=== PATIENT | female | born 1950 | race Caucasian/White ===

== ENCOUNTER 2017-05-26 06:47 | Day surgery (SDC) | payer MEDICARE, MEDICAID ==
[~2017-05-26 06:47] MED LIST: Acetaminophen TAB* 325 MG PO PRN; Buffered Lidocaine 0.9% SYRIN* 5 ML/SYR SYRINGE INTRADERM ONE
[2017-05-26] MEDS ORDERED: Midazolam* 1 MG/ML 2 ML VIAL (2 MG) ONE (07:45)
[2017-05-26] MEDS ORDERED: fentaNYL* 50 MCG/ML 2 ML VIAL (100 MCG VIAL) ONE (07:50)
[2017-05-26] MEDS ORDERED: Phenylephr/Ketorolac 1%/0.3% OPH DROP BTL ONE (07:51)
[2017-05-26 08:21] VITALS: BP 134/51
--- NOTE | 2017-05-26 10:46 | OP ---
OPERATIVE REPORT: DATE OF OPERATION: 05/26/17 DATE OF : 48 SURGEON: Dr. Yao Longoria. ROAD PASSENGER FIRER: None. ANESTHESIA: Topical with intravenous sedation. PRE-OP DIAGNOSIS: Cataract, right eye. POST-OP DIAGNOSIS: Cataract, right eye. OPERATIVE PROCEDURE: Phacoemulsification and cataract extraction with posterior chamber intraocular lens implant, right eye. COMPLICATIONS: None. BLOOD LOSS: None. DESCRIPTION OF PROCEDURE: The patient was brought to the operating room and received a small amount of intravenous sedation. A drop of Tetracaine was placed in her right eye. She was prepped and dr gildardo in the usual sterile fashion for ophthalmic surgery and attention was directed to the right eye where a speculum was placed. A paracentesis was created at the 11 o'clock position and 0.1 cc of 1 percent preservative-free Lidocaine was injected into the anterior chamber followed by DisCoVisc. The eye was digitally stabilized while a 2.75 mm keratome was used to create a triplanar clear corne al incision at the 9 o'clock position. A continuous curvilinear capsulorrhexis was created with a c ystotome and Utrata forceps. BSS on a cannula was used to hydrodissect the lens from the capsule. P hacoemulsification was performed in a [id number] technique to create four fragments which we re removed. Residual cortical material was removed with irrigation and aspiration. DisCoVisc was u sed to inflate the capsular bag and an AU00T0 27.0 diopter lens was folded and inserted into the cap sular bag. DisCoVisc was removed using irrigation and aspiration. BSS on a cannula was used to hyd rate the corneal stroma and seal the wound. At the end of the case the pupil was round and the lens was centered. The eye was of normal pressure and the wound was water tight. The speculum was minerva chad and topical Maxitrol ointment was placed on the surface of the eye. The eye was closed, patched and shielded and the patient was sent to the recovery room in stable condition with post operative instructions and follow-up appointment given. [id number]/[facility] #: [id number]
[2017-05-26] MEDS ORDERED: Flurbiprofen 0.03% OPTH.SOL* 2.5 ML BTL ONE (11:49)
[2017-05-26] MEDS ORDERED: Cyclopentolate 1% OPTH.SOL* 2 ML BTL ONE (11:49)
[2017-05-26] MEDS ORDERED: Tetracaine 0.5% OPTH.SOL 4 ML* 1 DROP BTL ONE (11:49)
[2017-05-26] MEDS ORDERED: Tropicamide 1% OPTH.SOL* BTL ONE (11:49)
[2017-05-26] MEDS ORDERED: Buffered Lidocaine 0.9% SYRIN* 5 ML/SYR SYRINGE ONE (11:49)
[2017-05-26] MEDS ORDERED: Neomycin/Polymy/Dex OPHTH.OIN* 3.5 GM ONE (11:49)
[2017-05-26] MEDS ORDERED: Lidocaine 1% MPF* 2 ML VIAL ONE (11:49)
[2017-05-26] MEDS ORDERED: Phenylephrine 2.5% OPTH.SOL* 2 ML BTL ONE (11:49)
== END 2017-05-26 08:33 | disposition home or self-care (01) ==
LOC: OREAST 06:47
PROVIDERS: ATTEND Ophthalmology
DX: H25.813 Combined forms of age-related cataract, bilateral (principal); I10 Essential (primary) hypertension; C34.11 Malignant neoplasm of upper lobe, right bronchus or lung; E03.9 Hypothyroidism, unspecified; R30.0 Dysuria; J44.9 Chronic obstructive pulmonary disease, unspecified; F32.9 Major depressive disorder, single episode, unspecified; E78.5 Hyperlipidemia, unspecified; C79.31 Secondary malignant neoplasm of brain; F17.200 Nicotine dependence, unspecified, uncomplicated; Z88.5 Allergy status to narcotic agent; Z79.82 Long term (current) use of aspirin; Z88.0 Allergy status to penicillin
CPT/HCPCS: A9270-GY; C9447; J2250; J3010

== ENCOUNTER 2017-06-02 10:47 | Day surgery (SDC) | payer MEDICARE, MEDICAID ==
[~2017-06-02 10:47] MED LIST changes: +Buffered Lidocaine 0.9% SYRIN* 5 ML/SYR SYRINGE ONE; +Cyclopentolate 1% OPTH.SOL* 2 ML BTL ONE; +Flurbiprofen 0.03% OPTH.SOL* 2.5 ML BTL ONE; +Lidocaine 1% MPF* 2 ML VIAL ONE; +Neomycin/Polymy/Dex OPHTH.OIN* 3.5 GM ONE; +Phenylephr/Ketorolac 1%/0.3% OPH DROP BTL ONE; +Phenylephrine 2.5% OPTH.SOL* 2 ML BTL ONE; +Tetracaine 0.5% OPTH.SOL 4 ML* 1 DROP BTL ONE; +Tropicamide 1% OPTH.SOL* BTL ONE
[2017-06-02] MEDS ORDERED: Midazolam* 1 MG/ML 2 ML VIAL (2 MG) ONE ×2 (11:34→12:09)
[2017-06-02] MEDS ORDERED: fentaNYL* 50 MCG/ML 2 ML VIAL (100 MCG VIAL) ONE (11:34)
[2017-06-02 12:31] VITALS: BP 134/60
--- NOTE | 2017-06-03 02:01 | OP ---
DATE OF OPERATION: 06/02/17 [facility] DATE OF : 48 SURGEON: Dr. Yao Longoria. COMPLETION MANAGER: None. ANESTHESIOLOGIST: Ronan Segovia MD ANESTHESIA: Topical with intravenous sedation. PRE-OP DIAGNOSIS: Cataract, left eye. POST-OP DIAGNOSIS: Cataract, left eye. OPERATIVE PROCEDURE: Phacoemulsification and cataract extraction with posterior chamber intraocular lens implant, left eye. COMPLICATIONS: None. BLOOD LOSS: None. DESCRIPTION OF PROCEDURE: The patient was brought to the operating room and received a small amount of intravenous sedation. A drop of Tetracaine was placed in her left eye. She was prepped and draped in the usual sterile fashion for ophthalmic surgery and attention was directed to the left eye where a speculum was placed. A paracentesis was created at the 5 o'clock position and 0.1 cc of 1 percent preservative-free Lidocaine was injected into the anterior chamber followed by DisCoVisc. The eye was digitally stabilized while a 2.75 mm keratome was used to create a triplanar clear corneal incision at the 3 o'clock position. A continuous curvilinear capsulorrhexis was created with a cystotome and Utrata forceps. BSS on a cannula was used to hydrodissect the lens from the capsule. Phacoemulsification was performed in a divide-and- conquer technique to create four fragments which were removed. Residual cortical material was removed with irrigation and aspiration. DisCoVisc was used to inflate the capsular bag and an AU00T0 26.5 diopter lens was folded and inserted into the capsular bag. DisCoVisc was removed using irrigation and aspiration. BSS on a cannula was used to hydrate the corneal stroma and seal the wound. At the end of the case the pupil was round and the lens was centered. The eye was of normal pressure and the wound was water tight. The speculum was removed and topical Maxitrol ointment was placed on the surface of the eye. The eye was closed, patched and shielded and the patient was sent to the recovery room in stable condition with post operative instructions and follow-up appointment given. [id number]/[facility] #: [id number] MTDD
== END 2017-06-02 12:44 | disposition home or self-care (01) ==
LOC: OREAST 10:47
PROVIDERS: ATTEND Ophthalmology
DX: H25.813 Combined forms of age-related cataract, bilateral (principal); E03.9 Hypothyroidism, unspecified; I25.10 Atherosclerotic heart disease of native coronary artery without angina pectoris; E78.5 Hyperlipidemia, unspecified; I10 Essential (primary) hypertension; F32.9 Major depressive disorder, single episode, unspecified; M81.0 Age-related osteoporosis without current pathological fracture; J44.9 Chronic obstructive pulmonary disease, unspecified; F17.210 Nicotine dependence, cigarettes, uncomplicated; C34.11 Malignant neoplasm of upper lobe, right bronchus or lung; C79.31 Secondary malignant neoplasm of brain; R30.0 Dysuria; I25.2 Old myocardial infarction; Z95.5 Presence of coronary angioplasty implant and graft; Z88.0 Allergy status to penicillin; Z79.82 Long term (current) use of aspirin; Z88.5 Allergy status to narcotic agent
CPT/HCPCS: A9270-GY; C9447; J2250; J3010; V2632

== ENCOUNTER 2017-06-21 20:00 | Emergency (ER) | payer MEDICARE, MEDICAID ==
[2017-06-21] MEDS ORDERED: oxyCODONE/Acetamin 5/325 MG* TAB PO ONE (22:24)
[2017-06-21 23:18] LABS: White Blood Count 0.8 10^3/ul (3.5-10.8)
[2017-06-21 23:22] LABS: Hematocrit 38 % (35-47); Mean Corpuscular HGB Conc 34 g/dl (31-36); Mean Corpuscular Hemoglobin 34 pg (27-31); Mean Corpuscular Volume 99 fL (80-97); Mean Platelet Volume 8 um3 (7.4-10.4); Red Cell Distribution Width 18 % (10.5-15)
[2017-06-21 23:25] LABS: Comments Flag Yes
[2017-06-21 23:29] LABS: Albumin 3.5 g/dL (3.2-5.2); BUN/Creatinine Ratio 40.3 (8-20); Calcium 8.2 mg/dL (8.6-10.3); EGFR African American 123.1 (>60); EGFR Non-African American 95.7 (>60); Globulin 2.5 g/dL (2-4); Magnesium 1.9 mg/dL (1.9-2.7); Potassium 3.9 mmol/L (3.5-5.0); Total Bilirubin 0.8 mg/dL (0.2-1.0)
[2017-06-21 23:31] LABS: Add Diff/Slide Review? Slide Review Added; Troponin I 0.02 ng/mL (<0.04)
[2017-06-22] MEDS ORDERED: Iohexol 350* (CONTRAST) 500 ML MDV IV ONE (00:49)
--- NOTE | 2017-06-22 01:04 | ED ---
HPI Chest Pain - HPI Summary HPI Summary: Pt here w/ atraumatic Rt lower posterior chest pain around noon today. Started shortly before lunch and progressed until now. Worse w/ deep breath, cough and moving. She is sensitive to touch in this area as well. Denies fever, chills, nausea, vomiting however her appetite has been low since onset - did not eat dinner tonight. Denies anterior chest pain, arm pain, bloody cough. She has lung CA and is currently undergoing chemotherapy - no new SOB since. Quit smoking 3 days ago. Has COPD and uses an inhaler daily. No known h/o pneumonia, PE. Reports some Lt arm pain a few days ago -better now. No edema nor orthopnea. - History of Current Complaint Chief Complaint: EDBackInjuryPain Time Seen by Provider: 06/21/17 21:56 Hx Obtained From: Patient Pain Intensity: 9 - Allergy/Home Medications Allergies/Adverse Reactions: Allergies Allergy/AdvReac Type Severity Reaction Status Date / Time Penicillins AdvReac Intermediate Yeast Verified 06/21/17 20:14 infection PMH/Surg Hx/FS Hx/Imm Hx Previously Healthy: Yes Endocrine/Hematology History: Reports: Hx Thyroid Disease Denies: Hx Anticoagulant Therapy, Hx Blood Disorders, Hx Blood Transfusions, Hx Bone Marrow Disease, Hx Diabetes, Hx Systemic Lupus Erythematosus, Hx Sickle Cell Disease, Hx Anemia, Hx Unexplained Bleeding Cardiovascular History: Reports: Hx Aneurysm, Hx Angina, Hx Coronary Artery Disease, Hx Hypercholesterolemia, Hx Hypertension - for tachycardia, Hx Myocardial Infarction, Hx Peripheral Vascular Disease - had stent in right leg 2012 Denies: Hx Angioplasty, Hx Auto Implanted Cardiovert Defib, Hx Cardiac Arrest , Hx Cardiomegaly, Hx Congenital Heart Disease, Hx Congestive Heart Failure, Hx Deep Vein Thrombosis, Hx Pacemaker/ICD, Hx Valvular Heart Disease Comment Only: Other Cardiovascular Problems/Disorders - hx cardiac stents Respiratory History: Reports: Hx Chronic Obstructive Pulmonary Disease (COPD), Other Respiratory Problems/Disorders - COPD, lung cancer 2016 Denies: Hx Asthma GI History: Reports: Hx Diverticulosis, Hx Gastroesophageal Reflux Disease, Hx Obstructive Bowel, Hx Ileostomy, Other GI Disorders - DIVERTICULITIS AND ABDOMINAL HERNIAS Denies: Hx Cirrhosis, Hx Crohn's Disease, Hx Gall Bladder Disease, Hx Hiatal Hernia, Hx Irritable Bowel, Hx Jaundice, Hx Pyloric Stenosis History: Reports: Other Problems/Disorders - UTI RECENTLY - RESOLVED Denies: Hx Acute Renal Failure, Hx Benign Prostatic Hyperplasia, Hx Chronic Renal Failure, Hx Dialysis, Hx Kidney Infection, Hx Kidney Stones, Hx Renal Disease Musculoskeletal History: Reports: Hx Arthritis - IN BACK, Hx Back Problems, Hx Osteoporosis, Other Musculoskeletal History - CORNER OF VERTEBRE BROKEN FROM A FALL Sensory History: Reports: Hx Contacts or Glasses - GLASSES, Hx Glaucoma - HAD LASER SURGERY 2008, Hx Vision Problem - Glasses Denies: Hx Cataracts, Hx Eye Injury, Hx Eye Prosthesis, Hx Macular Degeneration, Hx Deafness, Hx Hearing Aid, Hx Hearing Problem, Other Sensory Impairments Opthamlomology History: Reports: Hx Contacts or Glasses - GLASSES, Hx Glaucoma - HAD LASER SURGERY 2008, Hx Vision Problem - Glasses Denies: Hx Cataracts, Hx Eye Injury, Hx Eye Prosthesis, Hx Macular Degeneration, Other Sensory Impairments Neurological History: Reports: Other Neuro Impairments/Disorders - aneurysm repair brain 2009 Denies: Hx Dementia, Hx Developmental Delay, Hx Headaches, Hx Migraine, Hx Seizures, Hx Spinal Cord Injury, Hx Transient Ischemic Attacks (TIA) Psychiatric History: Reports: Hx Depression, Hx Substance Abuse - synthroid. Denies: Hx Panic Disorder - Cancer History Cancer Type, Location and Year: BRAIN/LUNG Hx Chemotherapy: No Hx Radiation Therapy: No - Surgical History Surgery Procedure, Year, and Place: aneurysm repair brain (info in pacs 03/19 mri safe upto 3.0T) ;. stenting of RLE for claudication Cardiac stent 2011 ( MULTI-LINK VISION COLBAL CHROMIUM BUSTOS - SAFE TO 3T DEBRA UNDER 2.0 W/KG);. colon surgery x 2 with ilieostomy & reversal;. d&c;. angioplasty to femoral;. LASER SURGERY BILAT EYES FOR GLAUCOMA;. 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 Negative: Cough Positive: Nausea - see HPI. Negative: Abdominal Pain, Vomiting, Diarrhea Positive: no symptoms reported Musculoskeletal: Other - see HPI Skin: Negative Negative: Bruising Neurological: Negative Negative: Headache, Weakness, Paresthesia, Numbness Psychological: Normal All Other Systems Reviewed And Are Negative: Yes Physical Exam Triage Information Reviewed: Yes Vital Signs On Initial Exam: Initial Vitals Temp Pulse Resp BP Pulse Ox 98.2 F 96 18 137/105 95 06/21/17 20:15 06/21/17 20:15 06/21/17 20:15 06/21/17 20:15 06/21/17 20:15 Vital Signs Reviewed: Yes Appearance: Positive: Well-Nourished, Ill-Appearing, Pain Distress - mild at rest - worse w/ deep breath/movements Skin: Positive: Warm, Dry - no erythema, no ecchymosis, no lesions over affected area Head/Face: Positive: Other - mild facial edema Eyes: Positive: Normal, EOMI, ANGELA, Conjunctiva Clear ENT: Positive: Hearing grossly normal Respiratory/Lung Sounds: Positive: Clear to Auscultation, Breath Sounds Present. Negative: Rales, Rhonchi, Stridor, Tracheal Deviation, Wheezes Cardiovascular: Positive: RRR, S1, S2 Abdomen Description: Positive: Nontender, No Organomegaly, Soft. Negative: CVA Tenderness (R), CVA Tenderness (L) Bowel Sounds: Positive: Present Musculoskeletal: Positive: Strength/ROM Intact, Pain @ - Rt upper back/mid back and chest areas are TTP Neurological: Positive: Normal, Sensory/Motor Intact, Alert, Oriented to Person Place, Time, CN Intact II-III Psychiatric: Positive: Normal - [place] Coma Scale Coma Scale Total: 15 Diagnostics - Vital Signs Vital Signs Temp Pulse Resp BP Pulse Ox 06/22/17 00:01 92 21 108/57 97 06/22/17 00:00 93 23 97 06/21/17 23:30 95 25 106/65 96 06/21/17 23:00 119/73 06/21/17 22:47 101 21 123/71 94 06/21/17 22:46 25 06/21/17 22:42 18 06/21/17 20:15 98.2 F 96 18 137/105 95 - Laboratory Lab Results: Lab Results 06/21/17 06/21/17 06/21/17 Range/Units 23:00 23:00 23:00 WBC 0.8 L (3.5-10.8) 10^3/ul RBC 3.80 L (4.0-5.4) 10^6/ul Hgb 13.0 (12.0-16.0) g/dl Hct 38 (35-47) % MCV 99 H (80-97) fL MCH 34 H (27-31) pg MCHC 34 (31-36) g/dl RDW 18 H (10.5-15) % Plt Count 24 L D (150-450) 10^3/ul MPV 8 (7.4-10.4) um3 Neut % (Auto) 61.4 (38-83) % Lymph % (Auto) 36.9 (25-47) % [place] % (Auto) 0.7 L (1-9) % Eos % (Auto) 0.8 (0-6) % Baso % (Auto) 0.2 (0-2) % Absolute Neuts (auto) 0.5 L* (1.5-7.7) 10^3/ul Absolute Lymphs (auto) 0.3 L (1.0-4.8) 10^3/ul Absolute Monos (auto) 0 (0-0.8) 10^3/ul Absolute Eos (auto) 0 (0-0.6) 10^3/ul Absolute Basos (auto) 0 (0-0.2) 10^3/ul Absolute Nucleated RBC 0 10^3/ul Nucleated RBC % 0.1 INR (Anticoag Therapy) 0.89 (0.89-1.11) APTT 16.6 L (26.0-36.3) seconds D-Dimer, Quantitative 214 (Less Than 230) ng/mL Sodium 134 (133-145) mmol/L Potassium 3.9 (3.5-5.0) mmol/L Chloride 97 L (101-111) mmol/L Carbon Dioxide 29 (22-32) mmol/L Anion Gap 8 (2-11) mmol/L BUN 25 H (6-24) mg/dL Creatinine 0.62 (0.51-0.95) mg/dL Est GFR ( Amer) 123.1 (>60) Est GFR (Non-Af Amer) 95.7 (>60) BUN/Creatinine Ratio 40.3 H (8-20) Glucose 83 (70-100) mg/dL Lactic Acid (0.5-2.0) mmol/L Calcium 8.2 L (8.6-10.3) mg/dL Magnesium 1.9 (1.9-2.7) mg/dL Total Bilirubin 0.80 (0.2-1.0) mg/dL AST 32 (13-39) U/L ALT 50 (7-52) U/L Alkaline Phosphatase 34 (34-104) U/L Troponin I 0.02 (<0.04) ng/mL Total Protein 6.0 L (6.4-8.9) g/dL Albumin 3.5 (3.2-5.2) g/dL Globulin 2.5 (2-4) g/dL Albumin/Globulin Ratio 1.4 (1-3) 06/21/17 Range/Units 23:00 WBC (3.5-10.8) 10^3/ul RBC (4.0-5.4) 10^6/ul Hgb (12.0-16.0) g/dl Hct (35-47) % MCV (80-97) fL MCH (27-31) pg MCHC (31-36) g/dl RDW (10.5-15) % Plt Count (150-450) 10^3/ul MPV (7.4-10.4) um3 Neut % (Auto) (38-83) % Lymph % (Auto) (25-47) % [place] % (Auto) (1-9) % Eos % (Auto) (0-6) % Baso % (Auto) (0-2) % Absolute Neuts (auto) (1.5-7.7) 10^3/ul Absolute Lymphs (auto) (1.0-4.8) 10^3/ul Absolute Monos (auto) (0-0.8) 10^3/ul Absolute Eos (auto) (0-0.6) 10^3/ul Absolute Basos (auto) (0-0.2) 10^3/ul Absolute Nucleated RBC 10^3/ul Nucleated RBC % INR (Anticoag Therapy) (0.89-1.11) APTT (26.0-36.3) seconds D-Dimer, Quantitative (Less Than 230) ng/mL Sodium (133-145) mmol/L Potassium (3.5-5.0) mmol/L Chloride (101-111) mmol/L Carbon Dioxide (22-32) mmol/L Anion Gap (2-11) mmol/L BUN (6-24) mg/dL Creatinine (0.51-0.95) mg/dL Est GFR ( Amer) (>60) Est GFR (Non-Af Amer) (>60) BUN/Creatinine Ratio (8-20) Glucose (70-100) mg/dL Lactic Acid 1.6 (0.5-2.0) mmol/L Calcium (8.6-10.3) mg/dL Magnesium (1.9-2.7) mg/dL Total Bilirubin (0.2-1.0) mg/dL AST (13-39) U/L ALT (7-52) U/L Alkaline Phosphatase (34-104) U/L Troponin I (<0.04) ng/mL Total Protein (6.4-8.9) g/dL Albumin (3.2-5.2) g/dL Globulin (2-4) g/dL Albumin/Globulin Ratio (1-3) Result Diagrams: 06/21/17 23:00 06/21/17 23:00 Lab Statement: Any lab studies that have been ordered have been reviewed, and results considered in the medical decision making process. Re-Evaluation - Re-Evaluation First Eval Change: Improved - s/p percocet 5/325mg Chest Pain Course/Dx - Course Course Of Treatment: Pt presents with acute onset Rt posterior mid back today around noon. No trigger for onset - worse w/ deep breath, cough and movement. Denies fever, chills, SOB, hemoptysis, edema. Labs appear to be normal for her ( neutropenic, thrombocytic) which are most likely from chemo tx's. D-dimer is WNL and CTA neg for PE, pneumonia, fx. She does have an 18mm spiculated nodule in Rt upper chest of which pt is aware. Pain improved w/ percocet and so advised to continue at home but also to f/u w/ PCP in next couple of days. If danger s/sx present, return to ED. Pt agrees w/ plan. Incidental finding of possible UTI as well. Looked back at most recent cx and sens which appears to be pansensitive. Pt reports poor relief with initial therapy last time and quick improvement with f/u anbx - I chose cipro for her today and advised close f/u w/ PCP to decide a) if she truly has a UTI on cx and b) if so, if organism is sensitive or not to cipro. Discussed w/ Dr. Lynn who agrees w/ plan. - Diagnoses Provider Diagnoses: Right-sided thoracic back pain, UTI (urinary tract infection) Discharge - Discharge Plan Condition: Stable Disposition: HOME Prescriptions: Ciprofloxacin HCl [Cipro 500 MG TAB] 500 mg PO BID #28 tab Patient Education Materials: Urinary Tract Infection in Women (ED), Back Pain ( ED) Referrals: Marguerite Shook MD [Primary Care Provider] - Additional Instructions: The cause of your Rt sided middle/upper back pain was not identified tonight however life threatening issues were ruled out such as pulmonary embolism, heart attack, pneumonia, etc. Incidentally, it was discovered you may have a UTI so you are being placed on an antibiotic. Follow-up with your PCP to see if it is necessary for you to continue this or not. Call tomorrow to schedule an appointment. *If you develop shortness of breath, bloody cough, fever, chills, vomiting, chest pain, dizziness, return to ED.
[2017-06-22] MEDS ORDERED: Ciprofloxacin TAB* 500 MG PO ONE (01:50)
[2017-06-22] MEDS ORDERED: oxyCODONE/Acetamin 5/325 MG* TAB PO ONE (02:08)
[2017-06-22 02:13] VITALS: BP 111/54
--- NOTE | 2017-06-22 07:35 | RAD ---
HISTORY: Lung cancer, right posterior chest pain COMPARISONS: PET CT dated May 14, 2017 VIEWS:1: Single frontal portable view of the chest at 10:45 PM. The patient is slightly obliqued to the right FINDINGS: LINES AND TUBES: None. CARDIOMEDIASTINAL SILHOUETTE: The cardiomediastinal silhouette is normal for portable technique. PLEURA: The costophrenic angles are sharp. No pleural abnormalities are noted. LUNG PARENCHYMA: Again noted is a paramediastinal density on the right corresponding to the nodule noted on the previous examination. ABDOMEN: The upper abdomen is clear. There is no subphrenic gas. BONES AND SOFT TISSUES: No bone or soft tissue abnormalities are noted. IMPRESSION: PERSISTENT RIGHT UPPER LOBE LUNG NODULE. NO ACTIVE CARDIOPULMONARY DISEASE
--- NOTE | 2017-06-22 07:54 | RAD ---
Indication: Posterior chest pain. Contrast: Administered 61.3 ml of OMNIPAQUE 350 mg/ml. CTA of the chest was performed after IV contrast administration. The pulmonary arterial tree is well opacified. There are no filling defects present to suggest pulmonary embolus. There is right hilar lymph nodes measuring up to 10 mm. Small left hilar lymph nodes measure up to 6 mm is noted. The heart demonstrates no pericardial effusion. The lung renner demonstrate right upper lobe spiculated mass measuring 16 mm. Additional mass in the right lower lobe measures 8 mm. No nodules are noted in the left lower lobe. Tiny 1 mm nonspecific nodule is noted in the superior segment of the left lower lobe. Additional small nodule is noted in the superior segment of the right lower lobe measuring approximately 4 mm. No pleural fluid is identified. The mass in the right upper lobe was present on February 17, 2017. Nodules in the right lower lobe are new and are likely due to metastatic lesions. The bony structures are grossly unremarkable. IMPRESSION: No evidence of pulmonary embolus are noted. Again noted is a spiculated pulmonary nodule in the right upper lobe. This remains unchanged since February 17, 2017. There are new nodules in the right lower lobe measuring up to 8 mm although a smaller 4 mm nodule is noted. This is suspicious for metastatic disease.
== END 2017-06-22 02:18 | disposition home or self-care (01) ==
LOC: ED 20:00
DX: M54.6 Pain in thoracic spine (principal); N39.0 Urinary tract infection, site not specified; C79.31 Secondary malignant neoplasm of brain; C34.11 Malignant neoplasm of upper lobe, right bronchus or lung; E07.9 Disorder of thyroid, unspecified; I25.119 Atherosclerotic heart disease of native coronary artery with unspecified angina pectoris; I10 Essential (primary) hypertension; E78.00 Pure hypercholesterolemia, unspecified; I25.2 Old myocardial infarction; I73.9 Peripheral vascular disease, unspecified; J44.9 Chronic obstructive pulmonary disease, unspecified; K21.9 Gastro-esophageal reflux disease without esophagitis; Z95.5 Presence of coronary angioplasty implant and graft; F12.90 Cannabis use, unspecified, uncomplicated; Z88.0 Allergy status to penicillin; Z87.891 Personal history of nicotine dependence
CPT/HCPCS: 36415; 71010; 71275; 80053; 83605; 83735; 84484; 85025; 85379; 85610; 85730; 93005; 99284; A9270-GY; Q9967

== ENCOUNTER 2017-06-23 10:11 | Inpatient (IN) | payer MEDICARE, OTHER ==
--- NOTE | 2017-06-23 11:16 | RAD ---
INDICATION: Chest and rib pain . History of right upper lobe carcinoma. COMPARISON: Chest x-ray 2016; CTA chest June 22, 2017 TECHNIQUE: PA and lateral dual-energy views were obtained. FINDINGS: Bones/Soft Tissues: There are no acute bony findings. There is osteopenia with mild kyphosis Cardiomediastinal: The cardiomediastinal silhouette is normal. Lungs: There is a nodule in the medial right upper lobe. This is been described on earlier CT imaging which is documented additional nodules. There is mild hyperinflation. Pleura: There are no pleural effusions. Other: None IMPRESSION: PERSISTENT RIGHT UPPER LOBE ABNORMALITIES. HYPERINFLATION. NO ACUTE FINDING.
--- NOTE | 2017-06-23 11:18 | RAD ---
Indication: Right rib pain. 3 views of the right ribs are reviewed. There is no fracture or dislocation. Diffuse osteopenia is noted. No definite pneumothorax is noted. IMPRESSION: No definite fracture of the right ribs is noted.
[2017-06-23] MEDS ORDERED: oxyCODONE TAB* 5 MG TAB PO ONE (11:28)
[2017-06-23 11:51] LABS: Hematocrit 32 % (35-47); Hemoglobin 10.6 g/dl (12.0-16.0); Mean Corpuscular HGB Conc 34 g/dl (31-36); Mean Corpuscular Hemoglobin 33 pg (27-31); Mean Corpuscular Volume 98 fL (80-97); Mean Platelet Volume 8 um3 (7.4-10.4); Red Blood Count 3.23 10^6/ul (4.0-5.4); Red Cell Distribution Width 18 % (10.5-15); White Blood Count 0.7 10^3/ul (3.5-10.8)
[2017-06-23 11:56] LABS: Comments Flag Yes
[2017-06-23 11:58] LABS: Add Diff/Slide Review? Manual Diff Added
[2017-06-23 12:00] LABS: BUN/Creatinine Ratio 43.4 (8-20); C Reactive Protein 448.52 mg/L (< 5.00); Calcium 8.5 mg/dL (8.6-10.3); EGFR African American 97.3 (>60); EGFR Non-African American 75.7 (>60); Globulin 2.7 g/dL (2-4); Potassium 3.9 mmol/L (3.5-5.0); Total Bilirubin 0.8 mg/dL (0.2-1.0); Total Protein 5.7 g/dL (6.4-8.9)
[2017-06-23 12:03] LABS: Troponin I 0.03 ng/mL (<0.04)
[2017-06-23 12:38] LABS: Neutrophil % 57 % (38-83)
[2017-06-23 12:39] LABS: Add Path Review? YES; Hypochromasia 1+
[2017-06-23 14:38] LABS: FIO2 4
[2017-06-23 14:46] LABS: PCO2 Arterial 46 mmHg (35-45)
[2017-06-23] MEDS ORDERED: NS 0.9% 1000 ML* 1,000 ML IV SCH (16:00)
[2017-06-23] MEDS: oxyCODONE/Acetamin 5/325 MG* TAB PO PRN ×3 (16:29→23:22)
[2017-06-23] MEDS: Levofloxacin 750 MG IVPREMIX(* 750 MG/150 ML BAG IVPB SCH (16:29)
--- NOTE | 2017-06-23 17:52 | ECHO ---
Patient: VELVET SIMMONS [facility] Rec#: [id number] : 1950 Date: 06/23/2017 Age: 67y Height: 157 cm / 61.8 in Weight: 61.7 kg / 136.0 lbs Sex: F BSA: 1.6 Room#: 403 Admit Date#: 06/23/2017 Type: Inpatient Referring: Allegra Shukla Reading: Eh Choi MD Glass Bender: Ira Tobin RN RDCS CC: Jared Gauthier MD CC: Marguerite Shook Transthoracic Echocardiogram Indication: Shortness of breath, hypoxia BP: 128/58 HR: 84 Rhythm: NSR Findings History: CAD, ID, HTN, HLD, PVD, COPD, former smoker, brain aneurysm with repair, thyroid disease, lung cancer, chemotherapy Technical Comments: The study is technically limited due to poor acoustic windows. The study is technically limited due to the patient's history of COPD. The study is technically limited due to the patient's smoking history. Completed at 1730. Left Ventricle: The left ventricular chamber size is decreased. Global left ventricular wall motion and contractility are within normal limits. The left ventricle appears hyperdynamic. The estimated ejection fraction is greater than 65%. There is no consistent Doppler evidence of clinically significant diastolic dysfunction. Left Atrium: The left atrial chamber size is normal. Right Ventricle: The right ventricle wall thickness is mildly increased. The right ventricular cavity size is normal. The right ventricular global systolic function is normal. Right Atrium: The right atrial cavity size is normal. Aortic Valve: The aortic valve structure is not well visualized. The aortic valve leaflets are mildly thickened. There is no evidence of aortic regurgitation. There is no evidence of aortic stenosis. Mitral Valve: The mitral valve leaflets are mildly thickened. There is a trace of mitral regurgitation. There is no evidence of mitral stenosis. Tricuspid Valve: The tricuspid valve leaflets are normal. There is mild tricuspid regurgitation. Unable to estimate the right ventricular systolic pressure. Pulmonic Valve: The pulmonic valve structure is not well visualized. Pericardium: A trivial pericardial effusion is visualized. There are no signs of significant hemodynamic compromise. A pericardial fat pad is visualized. Aorta: There is no dilatation of the ascending aorta. The aortic arch is not well visualized. The aortic root is normal in size. Pulmonary Artery: The main pulmonary artery is not well visualized. Venous: The inferior vena cava appears normal in size. There is a greater than 50% respiratory change in the inferior vena cava dimension. Conclusions Poor quality study for interpretation The study is technically limited due to poor acoustic windows. The study is technically limited due to the patient's history of COPD. The study is technically limited due to the patient's smoking history. Completed at 1730. The left ventricular chamber size is decreased. Global left ventricular wall motion and contractility are within normal limits. The left ventricle appears hyperdynamic. The estimated ejection fraction is greater than 65%. The right ventricle wall thickness is mildly increased. The right ventricular global systolic function is normal. The aortic valve structure is not well visualized. There is a trace of mitral regurgitation. There is mild tricuspid regurgitation. A trivial pericardial effusion is visualized. There are no signs of significant hemodynamic compromise. Compared to report of study from 09/08/2012 the degree of tricuspid regurgitation has mildly increased (was physiologic) Measurements Name Value Normal Range RVIDd (AP) 2D 2.2 cm (0.9 - 2.6) RVDdMajor (2D) 3.2 cm (2.2 - 4.4) RAd ISD 4CH 3.5 cm (3.4 - 4.9) RA (A4C)W 3.6 cm (2.9 - 4.6) IVSd (2D) 1 cm (0.6 - 1) LVPWd (2D) 1 cm (0.6 - 1) LVIDd (2D) 3 cm (3.6 - 5.4) Aortic Annulus 2 cm (1.4 - 2.6) Ao root diameter (2D) 2.6 cm (2.1 - 3.5) Ascending Ao 2.3 cm (2.1 - 3.4) LA dimension (AP) 2D 2.5 cm (2.3 - 3.8) LAd ISD 4CH 3.1 cm (2.9 - 5.3) LA ISD 4CH W 3.7 cm (2.5 - 4.5) Name Value Normal Range MV E-wave Vmax 0.45 m/sec - MV deceleration time 261 msec - MV A-wave Vmax 0.5 m/sec - MV E:A ratio 0.9 ratio - LV septal e' Vmax 0.05 m/sec - LV lateral e' Vmax 0.04 m/sec - LV E:e' septal ratio 9 ratio - LV E:e' lateral ratio 11.3 ratio - Name Value Normal Range AV Vmax 1.1 m/sec - AV VTI 18.8 cm - AV peak gradient 4.3 mmHg - AV mean gradient 2.8 mmHg - LVOT Vmax 1 m/sec - LVOT VTI 16.2 cm - LVOT peak gradient 4.2 mmHg - LVOT mean gradient 2.5 mmHg - Name Value Normal Range IVC diameter 0.9 cm - Name Value Normal Range PV Vmax 0.81 m/sec -
--- NOTE | 2017-06-23 17:52 | ED ---
Maura Ashraf Edward, scribed for Cody Arciniega MD on 06/23/17 at 1026 . Shortness of Breath - HPI Summary HPI Summary: 67 y/o female BIBA c/o gradual onset SOB for the past 3 days. The SOB became worse this morning. The SOB is aggravated with exertion. Associated sx: CP radiating to the back located @ the L ribcage, non productive cough. Denies fever/chills. PMHx CA. - History of Current Complaint Time Seen by Provider: 06/23/17 10:16 Hx Obtained From: Patient Onset/Duration: Sudden Onset, Lasting Hours Dyspnea At: Exertion Associated Signs & Symptoms: Cough (Nonproductive), Chest Pain Unrelated to Cough - @ ribcage - Allergy/Home Medications Allergies/Adverse Reactions: Allergies Allergy/AdvReac Type Severity Reaction Status Date / Time Penicillins AdvReac Intermediate Yeast Verified 06/21/17 20:14 infection Home Medications: Home Medications Albuterol HFA INHALER* [Ventolin HFA Inhaler*] 1 - 2 puff INH Q6H PRN 06/23/17 [ History Confirmed 06/23/17] Aspirin EC Low Dose* [Ecotrin EC Low Dose 81 MG*] 162 mg PO DAILY 06/23/17 [ History Confirmed 06/23/17] Calcium Carbonate-Vitamin D W/ [Caltrate 600+D Plus] 1 tab PO DAILY 06/23/17 [ History Confirmed 06/23/17] Docusate CAP* [Colace Cap*] 100 mg PO DAILY 06/23/17 [History Confirmed 06/23/17 ] Fluconazole [Fluconazole 200 mg tab] 200 mg PO DAILY 06/23/17 [History Confirmed 06/23/17] Folic Acid TAB* [Folvite TAB*] 1 mg PO DAILY 06/23/17 [History Confirmed ] Levothyroxine TAB* [Synthroid TAB*] 125 mcg PO DAILY 06/23/17 [History Confirmed 06/23/17] Nicotine PATCH 7 MG/24 HR* 1 patch TRANSDERM DAILY 06/23/17 [History Confirmed 06/23/17] Nutritional Supplements [Ensure] 1 can PO TID 06/23/17 [History Confirmed ] Vitamin A 8,000 unit PO DAILY 06/23/17 [History Confirmed 06/23/17] oxyCODONE/Acetamin 5/325 MG* [Percocet 5/325 TAB*] 1 tab PO Q6H PRN 06/23/17 [ History Confirmed 06/23/17] PMH/Surg Hx/FS Hx/Imm Hx Previously Healthy: No Endocrine/Hematology History: Reports: Hx Thyroid Disease Denies: Hx Anticoagulant Therapy, Hx Blood Disorders, Hx Blood Transfusions, Hx Bone Marrow Disease, Hx Diabetes, Hx Systemic Lupus Erythematosus, Hx Sickle Cell Disease, Hx Anemia, Hx Unexplained Bleeding Cardiovascular History: Reports: Hx Aneurysm, Hx Angina, Hx Coronary Artery Disease, Hx Hypercholesterolemia, Hx Hypertension - for tachycardia, Hx Myocardial Infarction, Hx Peripheral Vascular Disease - had stent in right leg 2012 Denies: Hx Angioplasty, Hx Auto Implanted Cardiovert Defib, Hx Cardiac Arrest , Hx Cardiomegaly, Hx Congenital Heart Disease, Hx Congestive Heart Failure, Hx Deep Vein Thrombosis, Hx Pacemaker/ICD, Hx Valvular Heart Disease Comment Only: Other Cardiovascular Problems/Disorders - hx cardiac stents Respiratory History: Reports: Hx Chronic Obstructive Pulmonary Disease (COPD), Other Respiratory Problems/Disorders - COPD, lung cancer 2015 Denies: Hx Asthma GI History: Reports: Hx Diverticulosis, Hx Gastroesophageal Reflux Disease, Hx Obstructive Bowel, Hx Ileostomy, Other GI Disorders - DIVERTICULITIS AND ABDOMINAL HERNIAS Denies: Hx Cirrhosis, Hx Crohn's Disease, Hx Gall Bladder Disease, Hx Hiatal Hernia, Hx Irritable Bowel, Hx Jaundice, Hx Pyloric Stenosis History: Reports: Other Problems/Disorders - UTI RECENTLY - RESOLVED Denies: Hx Acute Renal Failure, Hx Benign Prostatic Hyperplasia, Hx Chronic Renal Failure, Hx Dialysis, Hx Kidney Infection, Hx Kidney Stones, Hx Renal Disease Musculoskeletal History: Reports: Hx Arthritis - IN BACK, Hx Back Problems, Hx Osteoporosis, Other Musculoskeletal History - CORNER OF VERTEBRE BROKEN FROM A FALL Sensory History: Reports: Hx Contacts or Glasses - GLASSES, Hx Glaucoma - HAD LASER SURGERY 2008, Hx Vision Problem - Glasses Denies: Hx Cataracts, Hx Eye Injury, Hx Eye Prosthesis, Hx Macular Degeneration, Hx Deafness, Hx Hearing Aid, Hx Hearing Problem, Other Sensory Impairments Opthamlomology History: Reports: Hx Contacts or Glasses - GLASSES, Hx Glaucoma - HAD LASER SURGERY 2008, Hx Vision Problem - Glasses Denies: Hx Cataracts, Hx Eye Injury, Hx Eye Prosthesis, Hx Macular Degeneration, Other Sensory Impairments Neurological History: Reports: Other Neuro Impairments/Disorders - aneurysm repair brain 2009 Denies: Hx Dementia, Hx Developmental Delay, Hx Headaches, Hx Migraine, Hx Seizures, Hx Spinal Cord Injury, Hx Transient Ischemic Attacks (TIA) Psychiatric History: Reports: Hx Depression, Hx Substance Abuse - synthroid. Denies: Hx Panic Disorder - Cancer History Cancer Type, Location and Year: BRAIN/LUNG Hx Chemotherapy: No Hx Radiation Therapy: No - Surgical History Surgery Procedure, Year, and Place: aneurysm repair brain (info in pacs 03/19 mri safe upto 3.0T) ;. stenting of RLE for claudication Cardiac stent 2011 ( MULTI-LINK VISION COLBAL CHROMIUM BUSTOS - SAFE TO 3T DEBRA UNDER 2.0 W/KG);. colon surgery x 2 with ilieostomy & reversal;. d&c;. angioplasty to femoral;. LASER SURGERY BILAT EYES FOR GLAUCOMA;. BILATERAL CATARACTS-2017; Hx Anesthesia Reactions: No Infectious Disease History: Reports: Hx Shingles Denies: Hx Hepatitis - Social History Alcohol Use: None Hx Substance Use: Yes Substance Use Type: Reports: Marijuana Substance Use Comment - Amount & Last Used: reports uses marijuana every other day Hx Tobacco Use: Yes Smoking Status (MU): Former Smoker Type: Cigarettes Amount Used/How Often: 1/2 PPD Length of Time of Smoking/Using Tobacco: 40 YEARS - quit 06/19/2017 Have You Smoked in the Last Year: Yes Review of Systems Constitutional: Negative Negative: Fever, Chills Eyes: Negative ENT: Negative Positive: Chest Pain Positive: Shortness Of Breath, Cough Gastrointestinal: Negative Genitourinary: Negative Musculoskeletal: Negative Skin: Negative Neurological: Negative Psychological: Normal All Other Systems Reviewed And Are Negative: Yes Physical Exam - Summary Physical Exam Summary: VITAL SIGNS: Reviewed. GENERAL: ~Patient is an elderly fragile female who is lying comfortable in the stretcher. ~Patient is not in any acute respiratory distress. HEAD AND FACE: No signs of trauma. ~No ecchymosis, hematomas or skull depressions. No sinus tenderness. EYES: PERRLA, EOMI x 2, No injected conjunctiva, no nystagmus. EARS: Hearing grossly intact. Ear canals and tympanic membranes are within normal limits. MOUTH: Oropharynx within normal limits. NECK: Supple, trachea is midline, no adenopathy, no JVD, no carotid bruit, no c- spine tenderness, neck with full ROM. CHEST: Symmetric, tenderness @ the L ribcage. LUNGS: Clear to auscultation bilaterally. No wheezing or crackles. CVS: Regular rate and rhythm, S1 and S2 present, no murmurs or gallops appreciated. ABDOMEN: Soft, non-tender. No signs of distention. No rebound no guarding, and no masses palpated. Bowel sounds are normal. EXTREMITIES: FROM in all major joints, bilateral lower extremity edema, no cyanosis or clubbing. NEURO: Alert and oriented x 3. No acute neurological deficits. Speech is normal and follows commands. SKIN: Dry and warm Triage Information Reviewed: Yes Vital Signs Reviewed: Yes Diagnostics - Laboratory Result Diagrams: 06/23/17 11:35 06/23/17 11:35 Lab Statement: Any lab studies that have been ordered have been reviewed, and results considered in the medical decision making process. - Radiology RIBS XR Xray Interpretation: No Acute Changes - No definite fracture of the right ribs is noted. Radiology Interpretation Completed By: Radiologist CXR Xray Interpretation: No Acute Changes - PERSISTENT RIGHT UPPER LOBE ABNORMALITIES. HYPERINFLATION. NO ACUTE FINDING. Radiology Interpretation Completed By: Radiologist - EKG 1 EKG Rhythm: Sinus Rhythm - @ 89 bpm EKG Interpretation: 11:04 - ST depressions in II, III and V4-V6 EKG Comparison: No Significant Change - 06/21/17 Course/Dx - Course Assessment/Plan: 67 y/o female BIBA c/o sudden onset SOB starting this morning. Associated sx: CP radiating to the back located @ the L ribcage, non productive cough. Denies fever/chils. PMHx CA. RIBS XR SHOWED No definite fracture of the right ribs is noted. CXR SHOWED PERSISTENT RIGHT UPPER LOBE ABNORMALITIES. HYPERINFLATION. NO ACUTE FINDING. EKG 11:04 - ST depressions in II, III and V4- V6 shows SR @ 89 bpm. Test results show pancytopenia. Sodium 131, CRP 448. In the ED course the pt has become hypoxic w/ O2 at approximately the mid 80s. Therefore, I discussed with Dr. Bee for admission for further workup and management. The patient is hemodynamically stable and A&Ox3. - Diagnoses Provider Diagnoses: Hypoxia - Physician Notifications Discussed Care of Patient With: Enrique Bee Time Discussed With Above Provider: 12:49 Instructed by Provider To: Admit As Inpatient Discharge - Discharge Plan Condition: Stable Disposition: ADMITTED TO [facility] Referrals: Marguerite Shook MD [Primary Care Provider] - The documentation as recorded by the Maura castellanos Edward accurately reflects the service I personally performed and the decisions made by me, Cody Arciniega MD.
[2017-06-23] MEDS: Albuterol 2.5 MG/3 ML NEB.SOL* (0.083%) INH PRN (22:57)
[2017-06-24] MEDS: Levothyroxine TAB* 125 MCG TAB PO SCH (05:34)
[2017-06-24 06:39] LABS: Hematocrit 26 % (35-47); Hemoglobin 8.6 g/dl (12.0-16.0); Mean Corpuscular HGB Conc 34 g/dl (31-36); Mean Corpuscular Hemoglobin 33 pg (27-31); Mean Corpuscular Volume 99 fL (80-97); Mean Platelet Volume 9 um3 (7.4-10.4); Red Blood Count 2.59 10^6/ul (4.0-5.4); Red Cell Distribution Width 18 % (10.5-15); White Blood Count 0.8 10^3/ul (3.5-10.8)
[2017-06-24 06:40] LABS: Add Diff/Slide Review? Slide Review Added; Comments Flag Yes
[2017-06-24 06:50] LABS: Albumin 2.5 g/dL (3.2-5.2); BUN/Creatinine Ratio 36.1 (8-20); Calcium 8.2 mg/dL (8.6-10.3); EGFR African American 125.4 (>60); EGFR Non-African American 97.5 (>60); Globulin 2.3 g/dL (2-4); Potassium 3.4 mmol/L (3.5-5.0); Total Bilirubin 0.6 mg/dL (0.2-1.0); Total Protein 4.8 g/dL (6.4-8.9)
[2017-06-24] MEDS: Atorvastatin* 40 MG TAB PO SCH (08:55)
[2017-06-24] MEDS: Metoprolol Succinate XL TAB* 25 MG PO SCH (08:55)
[2017-06-24] MEDS: Omeprazole CAP* 20 MG PO SCH (08:55)
[2017-06-24] MEDS: Ferrous Sulfate TAB* 325 MG PO SCH (08:56)
[2017-06-24] MEDS: buPROPion SR TAB.SR* 150 MG PO SCH (08:56)
[2017-06-24] MEDS: Docusate CAP* 100 MG PO SCH (08:56)
[2017-06-24] MEDS: Fluconazole 100 MG TAB* TAB PO SCH (08:56)
[2017-06-24] MEDS: Folic Acid TAB* 1 MG PO SCH (08:56)
[2017-06-24] MEDS: Nicotine PATCH 7 MG/24 HR* PATCH TRANSDERM SCH (08:56)
[2017-06-24] MEDS ORDERED: Aspirin EC Low Dose* 81 MG TAB.EC PO SCH (09:00)
[2017-06-24] MEDS: Albuterol 2.5 MG/3 ML NEB.SOL* (0.083%) INH PRN (11:30)
[2017-06-24] MEDS: NS 0.9% w/ 20 Meq KCL 1000 ML* 1,000 ML IV SCH (14:30)
[2017-06-24] MEDS: Levofloxacin 750 MG IVPREMIX(* 750 MG/150 ML BAG IVPB SCH (14:45)
[2017-06-24] MEDS: oxyCODONE/Acetamin 5/325 MG* TAB PO PRN (19:33)
[2017-06-25] MEDS: oxyCODONE/Acetamin 5/325 MG* TAB PO PRN ×2 (00:49→03:03)
[2017-06-25] MEDS: Levothyroxine TAB* 125 MCG TAB PO SCH (05:16)
[2017-06-25 05:39] LABS: Hematocrit 21 % (35-47); Hemoglobin 7.5 g/dl (12.0-16.0); Mean Corpuscular HGB Conc 35 g/dl (31-36); Mean Corpuscular Hemoglobin 35 pg (27-31); Mean Corpuscular Volume 99 fL (80-97); Mean Platelet Volume 9 um3 (7.4-10.4); Red Blood Count 2.16 10^6/ul (4.0-5.4); Red Cell Distribution Width 18 % (10.5-15)
[2017-06-25 05:40] LABS: Comments Flag Yes; White Blood Count 1.1 10^3/ul (3.5-10.8)
[2017-06-25] MEDS: NS 0.9% w/ 20 Meq KCL 1000 ML* 1,000 ML IV SCH (06:29)
[2017-06-25 07:07] LABS: Add Diff/Slide Review? Slide Review Added
[2017-06-25] MEDS: Albuterol 2.5 MG/3 ML NEB.SOL* (0.083%) INH PRN (07:35)
[2017-06-25 07:38] LABS: Hypochromasia 2+; Immature Granulocytes 6 % (0-9); Neutrophil % 77 % (38-83)
[2017-06-25] MEDS: Dexamethasone IV* 4 MG/ML 1 ML (4 MG) IV SLOW PU SCH (09:53)
[2017-06-25] MEDS: Metoprolol Succinate XL TAB* 25 MG PO SCH (09:54)
[2017-06-25] MEDS: Ferrous Sulfate TAB* 325 MG PO SCH (09:54)
[2017-06-25] MEDS: buPROPion SR TAB.SR* 150 MG PO SCH (09:54)
[2017-06-25] MEDS: Omeprazole CAP* 20 MG PO SCH (09:54)
[2017-06-25] MEDS: Folic Acid TAB* 1 MG PO SCH (09:54)
[2017-06-25] MEDS: Atorvastatin* 40 MG TAB PO SCH (09:54)
[2017-06-25] MEDS: Fluconazole 100 MG TAB* TAB PO SCH (09:54)
[2017-06-25] MEDS: Docusate CAP* 100 MG PO SCH (09:54)
[2017-06-25] MEDS: Nicotine PATCH 7 MG/24 HR* PATCH TRANSDERM SCH (09:55)
[2017-06-25] MEDS: Polyethylene Glycol 3350* 17 GM PACKET PO SCH ×2 (10:03→22:20)
--- NOTE | 2017-06-25 10:28 | PN ---
Progress Note - Progress Note Date of Service: 06/25/17 SOAP: Subjective: feels better a little today. feet hurt last night. left side weak but reports that it has been since brain mets found. significant left sided back/pleuritic chest pain, reproducible on palpation. has fallen but does not think she hit it. still SOB this am, coughing and it is painful to cough. no BM in several days. Objective: Vital Signs Temp Pulse Resp BP Pulse Ox 98.4 F 81 17 108/46 94 06/25/17 07:32 06/25/17 07:38 06/25/17 07:53 06/25/17 07:32 06/25/17 07:38 sitting up in nad perr eomi op moist diffuse rhonchi and wheezing ttp over left lower lobe, lateral to spine soft nt +bs 1+ LE edema bilaterally, warm feet, scattered petechiae and ecchymoses, large ecchymoses right foot 4/5 LLE and LUE, 4+/5 right A+O x 3 Laboratory Results - last 24 hr 06/24/17 06/25/17 06/25/17 06:09 05:08 05:08 WBC 1.1 L RBC 2.16 L Hgb 7.5 L Hct 21 L MCV 99 H MCH 35 H MCHC 35 RDW 18 H Plt Count 12 L D 10 L MPV 9 Immature Gran % (Auto) 6 Neut % (Auto) 80.2 Lymph % (Auto) 15.5 L Calvert % (Auto) 3.9 Eos % (Auto) 0.1 Baso % (Auto) 0.3 Absolute Neuts (auto) 0.9 L Absolute Lymphs (auto) 0.2 L Absolute Monos (auto) 0 Absolute Eos (auto) 0 Absolute Basos (auto) 0 Absolute Nucleated RBC 0 Neutrophils % 77 Band Neutrophils % 6 Lymphocytes % 16 L Monocytes % 1 Nucleated RBC % 0.3 Nucleated RBCs/100 WBC 3 H Normal RBC Morphology Not Reportable Hypochromasia 2+ Hem Pathologist Commnt Lactate Dehydrogenase 319 H C-React Prot High Sens 245.56 Albuterol (Ventolin 2.5 Mg/3 Ml Neb.Sherly*) 2.5 mg INH Q4H PRN PRN Reason: SOB/WHEEZING Last Admin: 06/25/17 07:35 Dose: 2.5 mg Atorvastatin Calcium (Lipitor*) 40 mg PO QAM [facility] Last Admin: 06/25/17 09:54 Dose: 40 mg Bupropion HCl (Wellbutrin Sr Tab*) 150 mg PO QAM [facility] Last Admin: 06/25/17 09:54 Dose: 150 mg Dexamethasone Sodium Phosphate (Decadron Iv*) 2 mg IV SLOW PU DAILY [facility] Last Admin: 06/25/17 09:53 Dose: 2 mg Docusate Sodium (Colace Cap*) 100 mg PO DAILY [facility] Last Admin: 06/25/17 09:54 Dose: 100 mg Ferrous Sulfate ([facility]errous Sulfate Tab*) [facility] Last Admin: 06/25/17 09:54 Dose: 325 mg Fluconazole (Diflucan 100 Mg Tab*) 200 mg PO DAILY [facility] Last Admin: 06/25/17 09:54 Dose: 200 mg Folic Acid (Folvite Tab*) 1 mg PO DAILY [facility] Last Admin: 06/25/17 09:54 Dose: 1 mg Levofloxacin/Dextrose (Levaquin 750 Mg Ivpremix(*)) 750 mg in 150 mls @ 100 mls /hr IVPB Q24H [facility] Last Admin: 06/24/17 14:45 Dose: 100 mls/hr Potassium Chloride/Sodium Chloride (Ns 0.9% W/ 20 Meq Kcl 1000 Ml*) 1,000 mls @ 75 mls/hr IV PER RATE [facility] Last Admin: 06/25/17 06:29 Dose: 75 mls/hr Levothyroxine Sodium (Synthroid Tab*) 125 mcg PO 0600 [facility] Last Admin: 06/25/17 05:16 Dose: 125 mcg Metoprolol Succinate (Toprol Xl Tab*) 25 mg PO DAILY [facility] Last Admin: 06/25/17 09:54 Dose: 25 mg Nicotine (Nicotine Patch 7 Mg/24 Hr*) 1 patch TRANSDERM DAILY [facility] Last Admin: 06/25/17 09:55 Dose: 1 patch Omeprazole (Prilosec Cap*) [facility] Last Admin: 06/25/17 09:54 Dose: 20 mg Oxycodone/Acetaminophen (Percocet 5/325 Tab*) 1 tab PO Q4H PRN PRN Reason: PAIN Last Admin: 06/25/17 00:49 Dose: 1 tab Oxycodone/Acetaminophen (Percocet 5/325 Tab*) 1 tab PO Q4H PRN PRN Reason: PAIN MODERATE TO SEVERE Last Admin: 06/25/17 03:03 Dose: 1 tab Polyethylene Glycol/Electrolytes (Miralax*) 17 gm PO Q12H [facility] Last Admin: 06/25/17 10:03 Dose: 17 gm Assessment: 67 yo F w metastatic NSCLC on pemetrexed/avastin, day 8, admitted with back pain , SOB and hypoxia with elevated CRP and procalcitonin suggestive of pneumonia. I would like to repeat her chest CT and look for rib fracture given the focal tenderness on exam. They did just rule out a PE on the and so I think this is less likely. Plan: PNA: cont levaquin check chest CT cont nebs pancytopenia: chemotherapy induced, will need to dose reduce for next cycle cont folic acid transfuse plts and PRBC today back/foot pain: cont percocet prn no thrush on exam, will stop fluconazole, i believe it was written for a two week course on the 10 of June no dvt prophylaxis given severe thrombocytopenia miralax for constipation
[2017-06-25 10:36] LABS: Albumin 2.1 g/dL (3.2-5.2); BUN/Creatinine Ratio 21.9 (8-20); Calcium 8.1 mg/dL (8.6-10.3); EGFR African American 118.7 (>60); EGFR Non-African American 92.3 (>60); Globulin 2.3 g/dL (2-4); Potassium 3.8 mmol/L (3.5-5.0); Total Bilirubin 0.3 mg/dL (0.2-1.0); Total Protein 4.4 g/dL (6.4-8.9)
--- NOTE | 2017-06-25 12:54 | RAD ---
INDICATION: Left-sided pleuritic chest pain. Rib pain. COMPARISON: Chest x-ray June 23, 2017; CTA chest June 22, 2017 TECHNIQUE: Noncontrast axial source images were obtained from the thoracic inlet to the hemidiaphragms. Coronal and sagittal reconstructed images were acquired. This noncontrast study cannot evaluate for pulmonary embolus The visualized neck to include the thyroid appear normal. Chest wall: There are no acute abnormalities of the bony thorax or chest wall. There is no supraclavicular, infraclavicular, or axillary lymphadenopathy. Lungs : The recently described 1.6 cm right upper lobe mass is now partially obscured by adjacent parenchymal infiltrate and mild associated pleural reactive change. There is also new consolidative changes in the left lung base with air bronchograms consistent with acute pneumonitis. There is new right basilar airspace disease which is likely atelectasis and there is a small right subpleural effusion which is new. There are subcentimeter pulmonary parenchymal nodules as described on the examination 3 days previously. The largest, in the right lung base is now partially obscured by the airspace disease/pleural fluid there are emphysematous changes with biapical blebs. There are no endobronchial lesions. Cardiomediastinal structures: The heart is normal in size. There is no pericardial effusion. There is no evidence of aortic aneurysm or dissection. The pulmonary vessels appear normal. There is no mediastinal or hilar adenopathy by size criteria. The distal structures are better evaluated on the CT of the chest performed 3 days previously. The esophagus appears normal. Pleura : There are no pleural-based masses or effusions. Other: There are no acute or significant CT findings of the visualized upper abdomen. IMPRESSION: THERE ARE NEW RIGHT UPPER LOBE AND LEFT LOWER LOBE INFILTRATES AND THERE IS A NEW RIGHT-SIDED PLEURAL EFFUSION WITH RIGHT BASILAR ATELECTASIS. THE PATIENT HAS KNOWN PULMONARY PARENCHYMAL NODULES DESCRIBED ON A RECENT CTA OF THE CHEST
[2017-06-25 15:31] LABS: Urine Bilirubin Negative (Negative); Urine Glucose Negative (Negative); Urine Nitrite Negative (Negative)
[2017-06-25] MEDS: Levofloxacin 750 MG IVPREMIX(* 750 MG/150 ML BAG IVPB SCH (16:56)
[2017-06-25 17:24] LABS: Mean Platelet Volume 7 um3 (7.4-10.4)
[2017-06-25 17:26] LABS: Comments Flag Yes
[2017-06-25] MEDS ORDERED: Levofloxacin 750 MG IVPREMIX(* 750 MG/150 ML BAG IVPB SCH (20:00)
[2017-06-26 04:50] LABS: Hematocrit 28 % (35-47); Hemoglobin 9.7 g/dl (12.0-16.0); Mean Corpuscular HGB Conc 35 g/dl (31-36); Mean Corpuscular Hemoglobin 33 pg (27-31); Mean Corpuscular Volume 95 fL (80-97); Mean Platelet Volume 7 um3 (7.4-10.4); Red Blood Count 2.94 10^6/ul (4.0-5.4); Red Cell Distribution Width 17 % (10.5-15)
[2017-06-26 04:54] LABS: Comments Flag Yes
[2017-06-26 04:55] LABS: White Blood Count 1.6 10^3/ul (3.5-10.8)
[2017-06-26 05:01] LABS: BUN/Creatinine Ratio 17.3 (8-20); Calcium 8.2 mg/dL (8.6-10.3); EGFR African American 150.8 (>60); EGFR Non-African American 117.3 (>60); Magnesium 1.7 mg/dL (1.9-2.7); Potassium 3.8 mmol/L (3.5-5.0)
[2017-06-26 07:18] VITALS: BP 122/60
[2017-06-26] MEDS: Levothyroxine TAB* 125 MCG TAB PO SCH (07:31)
[2017-06-26] MEDS: Dexamethasone IV* 4 MG/ML 1 ML (4 MG) IV SLOW PU SCH (08:00)
[2017-06-26] MEDS: Ferrous Sulfate TAB* 325 MG PO SCH (08:00)
[2017-06-26] MEDS: Omeprazole CAP* 20 MG PO SCH (08:00)
[2017-06-26] MEDS: buPROPion SR TAB.SR* 150 MG PO SCH (08:00)
[2017-06-26] MEDS: Docusate CAP* 100 MG PO SCH (08:00)
[2017-06-26] MEDS: Metoprolol Succinate XL TAB* 25 MG PO SCH (08:00)
[2017-06-26] MEDS: Atorvastatin* 40 MG TAB PO SCH (08:00)
[2017-06-26] MEDS: Folic Acid TAB* 1 MG PO SCH (08:00)
[2017-06-26] MEDS: Nicotine PATCH 7 MG/24 HR* PATCH TRANSDERM SCH (08:00)
[2017-06-26] MEDS: Polyethylene Glycol 3350* 17 GM PACKET PO SCH (08:40)
--- NOTE | 2017-06-26 09:48 | PN ---
Progress Note - Progress Note Date of Service: 06/26/17 SOAP: Subjective: []Better today. Breathing better and pain is controlled. Has not been up moving more then to bathroom. Worried that still feels weak, would like a sitting walker. Feels can go home today but not sure if has ride. No headaches, eating , moved bowls yesterday. Albuterol (Ventolin 2.5 Mg/3 Ml Neb.Sherly*) 2.5 mg INH Q4H PRN PRN Reason: SOB/WHEEZING Last Admin: 06/25/17 07:35 Dose: 2.5 mg Atorvastatin Calcium (Lipitor*) 40 mg PO QAM [facility] Last Admin: 06/26/17 08:00 Dose: 40 mg Bupropion HCl (Wellbutrin Sr Tab*) [facility] Last Admin: 06/26/17 08:00 Dose: 150 mg Dexamethasone Sodium Phosphate (Decadron Iv*) 2 mg IV SLOW PU DAILY [facility] Last Admin: 06/26/17 08:00 Dose: 2 mg Docusate Sodium (Colace Cap*) 100 mg PO DAILY [facility] Last Admin: 06/26/17 08:00 Dose: 100 mg Ferrous Sulfate (Ferrous Sulfate Tab*) 325 [facility] Last Admin: 06/26/17 08:00 Dose: 325 mg Folic Acid (Folvite Tab*) 1 mg PO DAILY [facility] Last Admin: 06/26/17 08:00 Dose: 1 mg Potassium Chloride/Sodium Chloride (Ns 0.9% W/ 20 Meq Kcl 1000 Ml*) 1,000 mls @ 75 mls/hr IV PER RATE [facility] Last Admin: 06/25/17 06:29 Dose: 75 mls/hr Levofloxacin/Dextrose (Levaquin 750 Mg Ivpremix(*)) 750 mg in 150 mls @ 100 mls /hr IVPB 1999 [facility] Last Admin: 06/25/17 22:13 Dose: 100 mls/hr Levothyroxine Sodium (Synthroid Tab*) 125 mcg PO 0600 [facility] Last Admin: 06/26/17 07:31 Dose: 125 mcg Metoprolol Succinate (Toprol Xl Tab*) 25 mg PO DAILY [facility] Last Admin: 06/26/17 08:00 Dose: 25 mg Nicotine (Nicotine Patch 7 Mg/24 Hr*) 1 patch TRANSDERM DAILY [facility] Last Admin: 06/26/17 08:00 Dose: 1 patch Omeprazole (Prilosec Cap*) 20 mg PO QAM [facility] Last Admin: 06/26/17 08:00 Dose: 20 mg Oxycodone/Acetaminophen (Percocet 5/325 Tab*) 1 tab PO Q4H PRN PRN Reason: PAIN Last Admin: 06/25/17 00:49 Dose: 1 tab Oxycodone/Acetaminophen (Percocet 5/325 Tab*) 1 tab PO Q4H PRN PRN Reason: PAIN MODERATE TO SEVERE Last Admin: 06/25/17 03:03 Dose: 1 tab Polyethylene Glycol/Electrolytes (Miralax*) 17 gm PO Q12H [facility] Last Admin: 06/26/17 08:40 Dose: Not Given Objective: [] Vital Signs Temp Pulse Resp BP Pulse Ox 98.8 F 83 18 122/60 96 06/26/17 07:18 06/26/17 07:18 06/26/17 08:41 06/26/17 07:18 06/26/17 07:18 HEENT: Cushioned, no thrush. Decreased BS but no wheezing, slight crackles on my exam, no consolidation or effusion. RRR S1S2 Obese, NT/ND Ext - good pulses, warm to touch Neuro - grossly non focal, cerebellar exam negative. Assessment: 67 yo F w metastatic NSCLC on pemetrexed/avastin, day 8, admitted with back pain , SOB and hypoxia bilateral pneumonia and prolonged cytopenias. Now improving on Levoquin, no longer neuropenic. Plan: 1. PNA. Can discharge on oral Levoquin for 14 day course. 2. Pancytopenia. All cell lines improving today. Will check B12 and will need to change lung cancer chemotherapy. No additional transfusions. 3. Back/foot pain. Improved and will go to home pain medications on discharge. 4. Disp. Will try to send home today with sitting walker and home O2. Nurse to walk 30 ft with oxygen to make sure ok, discharge planning aware. 5. Lung cancer. Will change regimen to Avastin 15 mg/kg q 21 days and Taxol 80 mg/M2 d1,8 6. RTC next week with [facility] and re-start chemotherapy in 2 weeks.
--- NOTE | 2017-06-27 00:50 | DS ---
DISCHARGE SUMMARY: DATE OF ADMISSION: 06/23/17 DATE OF DISCHARGE: 06/26/17 DISCHARGE DIAGNOSES: 1. Community acquired pneumonia. 2. Pancytopenia secondary to chemotherapy. 3. Lung cancer. 4. Chronic obstructive pulmonary disease. HOSPITAL COURSE: Please see history and physical for details of presentation. When she first came i n, she was febrile, short of breath and with back pain and foot pain. She had an elevated C-reactiv e protein and an elevated procalcitonin of 3.1. Initial chest imaging was negative and urine was ne gative. She was placed on Levaquin antibiotics and hydrated. She continued to have shortness of br eath on days #2 and #3. A repeat chest x-ray subsequently showed bilateral pneumonias with increase d visibility after hydration. She has improved over the last three days. She was pancytopenic on pr esentation with an ANC of 400, increased to 900 on the and 1300 today. She had hemoglobin 10.6 on admission and went down to 7.5 with hydration and up to 9.7 with IV fluids, and platelets went d own to 10 before rebounding to 43,000 today. Chemistries have remained relatively stable. Magnesium 1.7, potassium 3.8. She has an albumin that has dropped to 2.1 [address] We pl an on discharge home today with followup next week in clinic. Given the degree of pancytopenia, we need to alter her chemotherapy regimen. She will remain off chemotherapy until at least the week af ter next and then start a reduced dose chemotherapy. MEDICATIONS ON DISCHARGE: 1. Atorvastatin 40 mg p.o. daily. 2. Colace 100 mg p.o. daily. 3. Ferrous sulfate 325 mg one tab daily. 4. Folic acid 1 mg daily. 5. Levothyroxine 125 mcg daily. 6. Metoprolol XL 25 mg daily. 7. NicoDerm patch 7 per 24 hour daily, take off at night. 8. Metoprolol 20 mg p.o. q.a.m. 9. Bupropion SR 450 mg daily. 10. Oxycodone 1 tab q.6 p.r.n. 11. Albuterol 1 to 2 puffs q.6 p.r.n. 12. Aspirin 162 mg p.o. daily. 13. Calcium and vitamin D 1 daily. 14. Magnesium 250 mg p.o. q.a.m. 15. Nitroglycerin 0.4 mg SL q.5 minutes p.r.n. 16. Vitamin A 8000 units capsule daily. 17. Levothyroxine p.o. daily for an additional 7 days. FOLLOWUP: Will be mid next week with Allegra Willoughby. LABS PENDING ON DISCHARGE: Vitamin B12. [id number]/[facility] #: [id number]
== END 2017-06-26 14:15 | disposition home or self-care (01) | DRG 190 ==
LOC: ED 10:11 → MED 14:19
PROVIDERS: ADMIT Internal Medicine Hematology & Oncology; ATTEND Internal Medicine Hematology & Oncology
PROC: 30233N1 Transfusion of Nonautologous Red Blood Cells into Peripheral Vein, Percutaneous Approach (ICD-10-PCS; principal; 2017-06-23)
DX: J44.0 Chronic obstructive pulmonary disease with (acute) lower respiratory infection (principal); J18.9 Pneumonia, unspecified organism; D61.810 Antineoplastic chemotherapy induced pancytopenia; C34.90 Malignant neoplasm of unspecified part of unspecified bronchus or lung; I25.10 Atherosclerotic heart disease of native coronary artery without angina pectoris; E78.00 Pure hypercholesterolemia, unspecified; I10 Essential (primary) hypertension; I73.9 Peripheral vascular disease, unspecified; K21.9 Gastro-esophageal reflux disease without esophagitis; M46.90 Unspecified inflammatory spondylopathy, site unspecified; M81.0 Age-related osteoporosis without current pathological fracture; G89.29 Other chronic pain; M54.9 Dorsalgia, unspecified; E78.5 Hyperlipidemia, unspecified; E03.9 Hypothyroidism, unspecified; R09.02 Hypoxemia; G43.909 Migraine, unspecified, not intractable, without status migrainosus; H40.9 Unspecified glaucoma; F17.200 Nicotine dependence, unspecified, uncomplicated; F32.9 Major depressive disorder, single episode, unspecified; Z98.42 Cataract extraction status, left eye; Z98.41 Cataract extraction status, right eye; Z93.2 Ileostomy status; Z87.440 Personal history of urinary (tract) infections; I25.2 Old myocardial infarction; Z88.0 Allergy status to penicillin; Z95.5 Presence of coronary angioplasty implant and graft; Z98.51 Tubal ligation status; Z80.0 Family history of malignant neoplasm of digestive organs; T45.1X5A Adverse effect of antineoplastic and immunosuppressive drugs, initial encounter; M79.673 Pain in unspecified foot; K59.00 Constipation, unspecified; Z79.82 Long term (current) use of aspirin
CPT/HCPCS: 36415; 36600; 71010; 71020; 71250; 71275; 80048; 80053; 81003; 82553; 82607; 82803; 83605; 83615; 83735; 83874; 83880; 83930; 83935; 84145; 84300; 84484; 85025; 85049; 85060; 85379; 85610; 85730; 86140; 86141; 86850; 86900; 86901; 86922; 87040; 87070; 87205; 87899; 93005; 93306; 94640; 94760; 99223; 99233; 99239; 99284; A9270-GY; J1100; J3475; P9035; P9040; Q9967

== ENCOUNTER 2017-06-27 20:02 | Inpatient (IN) | payer MEDICARE, OTHER ==
[2017-06-27] MEDS ORDERED: NS 0.9% 1000 ML*IV.FLUID IV ONE (20:32)
[2017-06-27] MEDS ORDERED: Albuterol/Ipratropium NEB.SOL* Albuterol 2.5 MG/Ipratropium 0.5 MG 3 ML INH ONE (20:34)
[2017-06-27 20:54] LABS: Hematocrit 32 % (35-47); Hemoglobin 11.2 g/dl (12.0-16.0); Mean Corpuscular HGB Conc 35 g/dl (31-36); Mean Corpuscular Hemoglobin 33 pg (27-31); Mean Corpuscular Volume 96 fL (80-97); Mean Platelet Volume 8 um3 (7.4-10.4); Red Blood Count 3.36 10^6/ul (4.0-5.4); Red Cell Distribution Width 18 % (10.5-15)
[2017-06-27 20:58] LABS: Comments Flag Yes
[2017-06-27 20:59] LABS: White Blood Count 1.6 10^3/ul (3.5-10.8)
--- NOTE | 2017-06-27 21:03 | RAD ---
HISTORY: Cough, fever, pneumonia COMPARISONS: June 23, 2017 VIEWS: 2: Frontal and lateral views of the chest. FINDINGS: CARDIOMEDIASTINAL SILHOUETTE: The cardiomediastinal silhouette is normal. SAMM: The samm are normal. PLEURA: The costophrenic angles are sharp. No pleural abnormalities are noted. LUNG PARENCHYMA: There is hyperinflation with flattening of the diaphragm and expansion of the AP diameter of the chest. There is persistent nodularity of the right upper lung ABDOMEN: The upper abdomen is clear. There is no subphrenic gas. BONES AND SOFT TISSUES: No bone or soft tissue abnormalities are noted. OTHER: None. IMPRESSION: 1. COPD. 2. PERSISTENT NODULARITY OF THE RIGHT UPPER LUNG
[2017-06-27] MEDS ORDERED: Levofloxacin 750 MG IVPREMIX(* 750 MG/150 ML BAG IVPB ONE (21:06)
[2017-06-27 21:25] LABS: Albumin 3.1 g/dL (3.2-5.2); BUN/Creatinine Ratio 23.7 (8-20); C Reactive Protein 180.08 mg/L (< 5.00); Calcium 8.8 mg/dL (8.6-10.3); EGFR African American 97.3 (>60); EGFR Non-African American 75.7 (>60); Globulin 3.3 g/dL (2-4); Total Bilirubin 0.4 mg/dL (0.2-1.0); Total Protein 6.4 g/dL (6.4-8.9)
[2017-06-27 21:27] LABS: Troponin I 0.01 ng/mL (<0.04)
[2017-06-27 21:29] LABS: Potassium 3.6 mmol/L (3.5-5.0)
--- NOTE | 2017-06-27 21:43 | ED ---
Winston Ashraf SooYoung, scribed for Erich Mcqueen MD on 06/27/17 at 2030 . Complex/Multi-Sys Presentation - HPI Summary HPI Summary: A 67 y/o F who was recently admitted for PNA, released yesterday. At home, she states she got increasingly weak, and was unable to get up from the commode. Associated sx: fever of 100.6 at 1700 yesterday, chills, cough, SOB, diarrhea, loss of appetite. Denies sore throat. Pt on 2L of home O2, which causes dryness in her nose that causes epistaxis at times. Did not take any OTC meds for the fever. Pt on Levaquin. PMHx: non-small cell lung CA metastasized to brain. Last chemo was 9 days ago. Denies past medical hx of CHF. Former smoker. No ETOH. - History Of Current Complaint Chief Complaint: EDWeakness Time Seen by Provider: 06/27/17 20:17 Hx Obtained From: Patient Onset/Duration: Lasting Days - yesterday, Still Present Timing: Constant Severity Currently: Moderate Severity Initially: Moderate Associated Signs And Symptoms: Positive: Weakness, SOB, Cough, Diarrhea, Decreased Oral Intake - loss of appetite, Fever, Other - pos: chills; neg: sore throat - Allergies/Home Medications Allergies/Adverse Reactions: Allergies Allergy/AdvReac Type Severity Reaction Status Date / Time Penicillins AdvReac Intermediate Yeast Verified 06/21/17 20:14 infection PMH/Surg Hx/FS Hx/Imm Hx Previously Healthy: No Endocrine/Hematology History: Reports: Hx Thyroid Disease Denies: Hx Anticoagulant Therapy, Hx Blood Disorders, Hx Blood Transfusions, Hx Bone Marrow Disease, Hx Diabetes, Hx Systemic Lupus Erythematosus, Hx Sickle Cell Disease, Hx Anemia, Hx Unexplained Bleeding Cardiovascular History: Reports: Hx Aneurysm, Hx Angina, Hx Coronary Artery Disease, Hx Hypercholesterolemia, Hx Hypertension - for tachycardia, Hx Myocardial Infarction, Hx Peripheral Vascular Disease - had stent in right leg 2012 Denies: Hx Angioplasty, Hx Auto Implanted Cardiovert Defib, Hx Cardiac Arrest , Hx Cardiomegaly, Hx Congenital Heart Disease, Hx Congestive Heart Failure, Hx Deep Vein Thrombosis, Hx Pacemaker/ICD, Hx Valvular Heart Disease Comment Only: Other Cardiovascular Problems/Disorders - hx cardiac stents Respiratory History: Reports: Hx Chronic Obstructive Pulmonary Disease (COPD), Other Respiratory Problems/Disorders - COPD, lung cancer 2016 Denies: Hx Asthma GI History: Reports: Hx Diverticulosis, Hx Gastroesophageal Reflux Disease, Hx Obstructive Bowel, Hx Ileostomy, Other GI Disorders - DIVERTICULITIS AND ABDOMINAL HERNIAS Denies: Hx Cirrhosis, Hx Crohn's Disease, Hx Gall Bladder Disease, Hx Hiatal Hernia, Hx Irritable Bowel, Hx Jaundice, Hx Pyloric Stenosis History: Reports: Other Problems/Disorders - UTI RECENTLY - RESOLVED Denies: Hx Acute Renal Failure, Hx Benign Prostatic Hyperplasia, Hx Chronic Renal Failure, Hx Dialysis, Hx Kidney Infection, Hx Kidney Stones, Hx Renal Disease Musculoskeletal History: Reports: Hx Arthritis - IN BACK, Hx Back Problems, Hx Osteoporosis, Other Musculoskeletal History - CORNER OF VERTEBRE BROKEN FROM A FALL Sensory History: Reports: Hx Contacts or Glasses - GLASSES, Hx Glaucoma - HAD LASER SURGERY 2008, Hx Vision Problem - Glasses Denies: Hx Cataracts, Hx Eye Injury, Hx Eye Prosthesis, Hx Macular Degeneration, Hx Deafness, Hx Hearing Aid, Hx Hearing Problem, Other Sensory Impairments Opthamlomology History: Reports: Hx Contacts or Glasses - GLASSES, Hx Glaucoma - HAD LASER SURGERY 2008, Hx Vision Problem - Glasses Denies: Hx Cataracts, Hx Eye Injury, Hx Eye Prosthesis, Hx Macular Degeneration, Other Sensory Impairments Neurological History: Reports: Other Neuro Impairments/Disorders - aneurysm repair brain 2009 Denies: Hx Dementia, Hx Developmental Delay, Hx Headaches, Hx Migraine, Hx Seizures, Hx Spinal Cord Injury, Hx Transient Ischemic Attacks (TIA) Psychiatric History: Reports: Hx Depression, Hx Substance Abuse - synthroid. Denies: Hx Panic Disorder - Cancer History Cancer Type, Location and Year: BRAIN/LUNG Hx Chemotherapy: No Hx Radiation Therapy: No - Surgical History Surgery Procedure, Year, and Place: aneurysm repair brain (info in pacs 03/19 mri safe upto 3.0T) ;. stenting of RLE for claudication Cardiac stent 2011 ( [employer] [facility] COLBAL CHROMIUM BUSTOS - SAFE TO 3T DEBRA UNDER 2.0 W/KG);. colon surgery x 2 with ilieostomy & reversal;. d&c;. angioplasty to femoral;. LASER SURGERY BILAT EYES FOR GLAUCOMA;. BILATERAL CATARACTS-2017; Hx Anesthesia Reactions: No Infectious Disease History: No Infectious Disease History: Reports: Hx Shingles Denies: Hx Hepatitis, Traveled Outside the [place] in Last 30 Days - Family History Known Family History: Positive: Other - pos: Breast CA - Social History Occupation: Retired Lives: Alone Alcohol Use: None Hx Substance Use: Yes Substance Use Type: Reports: Marijuana Substance Use Comment - Amount & Last Used: reports uses marijuana every other day Hx Tobacco Use: Yes Smoking Status (MU): Former Smoker Type: Cigarettes Amount Used/How Often: 1/2 PPD Length of Time of Smoking/Using Tobacco: 40 YEARS - quit 06/19/2017 Have You Smoked in the Last Year: Yes Review of Systems Positive: Fever, Chills Negative: Sore Throat Positive: Shortness Of Breath, Cough Positive: Diarrhea, Other - pos: loss of appetite Positive: Weakness All Other Systems Reviewed And Are Negative: Yes Physical Exam - Summary Physical Exam Summary: The patient is well-nourished and ill appearing. The skin is warm and dry and pale, with decreased skin turgor. There is an ecchymosis on R foot but it is non-tender. HEENT: The head is normocephalic and atraumatic. The pupils are equal and reactive. The conjunctivae are clear and without drainage. Nares are patent and without drainage. Mouth reveals moist mucous membranes and the throat is without erythema and exudate. The external ears are intact. The ear canals are patent and without drainage. The tympanic membranes are intact. Neck is supple with full range of motion and non-tender. There are no carotid bruits. There is no neck vein distension. Respiratory: Chest is non-tender. Lungs have diffuse wheezing. Cardiovascular: Hear is regular rate and rhythm. There is no murmur or rub auscultated. There is no peripheral edema and pulses are symmetrical and equal. Abdomen: The abdomen is soft and non-tender. There are normal bowel sounds heard in all four quadrants and there is no organomegaly palpated. Musculoskeletal: There is no back pain noted. Extremities are non-tender with full range of motion. Capillary refill is 3 seconds. There is pitting edema to LE. Neurological: Patient is alert and oriented to person, place and time. The patient has generalized weakness. Pt has difficulty sitting up. No focal deficit. Cranial nerves are grossly intact. Deep tendon reflexes are symmetrical and equal in all four extremities. Psychiatric: The patient has an appropriate affect and does not exhibit any anxiety or depression. Triage Information Reviewed: Yes Vital Signs On Initial Exam: Initial Vitals Temp Pulse Resp BP Pulse Ox 99.5 F 107 18 148/69 96 06/27/17 20:07 06/27/17 20:07 06/27/17 20:07 06/27/17 20:07 06/27/17 20:07 Vital Signs Reviewed: Yes Diagnostics - Vital Signs Vital Signs Temp Pulse Resp BP Pulse Ox 06/27/17 20:07 99.5 F 107 18 148/69 96 - Laboratory Lab Results: Lab Results 06/27/17 06/27/17 06/27/17 Range/Units 20:45 20:45 20:45 WBC 1.6 L (3.5-10.8) 10^3/ul RBC 3.36 L (4.0-5.4) 10^6/ul Hgb 11.2 L (12.0-16.0) g/dl Hct 32 L (35-47) % MCV 96 (80-97) fL MCH 33 H (27-31) pg MCHC 35 (31-36) g/dl RDW 18 H (10.5-15) % Plt Count 42 L D (150-450) 10^3/ul MPV 8 (7.4-10.4) um3 Neut % (Auto) 80.0 (38-83) % Lymph % (Auto) 16.2 L (25-47) % Henderson % (Auto) 2.8 (1-9) % Eos % (Auto) 0.7 (0-6) % Baso % (Auto) 0.3 (0-2) % Absolute Neuts (auto) 1.3 L (1.5-7.7) 10^3/ul Absolute Lymphs (auto) 0.3 L (1.0-4.8) 10^3/ul Absolute Monos (auto) 0 (0-0.8) 10^3/ul Absolute Eos (auto) 0 (0-0.6) 10^3/ul Absolute Basos (auto) 0 (0-0.2) 10^3/ul Absolute Nucleated RBC 0.07 10^3/ul Nucleated RBC % 4.4 INR (Anticoag Therapy) 1.15 H (0.89-1.11) APTT 25.9 L (26.0-36.3) seconds Sodium 131 L (133-145) mmol/L Potassium 3.6 (3.5-5.0) mmol/L Chloride 94 L (101-111) mmol/L Carbon Dioxide 29 (22-32) mmol/L Anion Gap 8 (2-11) mmol/L BUN 18 (6-24) mg/dL Creatinine 0.76 (0.51-0.95) mg/dL Est GFR ( Amer) 97.3 (>60) Est GFR (Non-Af Amer) 75.7 (>60) BUN/Creatinine Ratio 23.7 H (8-20) Glucose 102 H (70-100) mg/dL Lactic Acid (0.5-2.0) mmol/L Calcium 8.8 (8.6-10.3) mg/dL Total Bilirubin 0.40 (0.2-1.0) mg/dL AST 56 H (13-39) U/L ALT 80 H (7-52) U/L Alkaline Phosphatase 51 (34-104) U/L Troponin I 0.01 (<0.04) ng/mL C-Reactive Protein 180.08 H (< 5.00) mg/L Total Protein 6.4 (6.4-8.9) g/dL Albumin 3.1 L (3.2-5.2) g/dL Globulin 3.3 (2-4) g/dL Albumin/Globulin Ratio 0.9 L (1-3) // Range/Units 20:45 WBC (3.5-10.8) 10^3/ul RBC (4.0-5.4) 10^6/ul Hgb (12.0-16.0) g/dl Hct (35-47) % MCV (80-97) fL MCH (27-31) pg MCHC (31-36) g/dl RDW (10.5-15) % Plt Count (150-450) 10^3/ul MPV (7.4-10.4) um3 Neut % (Auto) (38-83) % Lymph % (Auto) (25-47) % Henderson % (Auto) (1-9) % Eos % (Auto) (0-6) % Baso % (Auto) (0-2) % Absolute Neuts (auto) (1.5-7.7) 10^3/ul Absolute Lymphs (auto) (1.0-4.8) 10^3/ul Absolute Monos (auto) (0-0.8) 10^3/ul Absolute Eos (auto) (0-0.6) 10^3/ul Absolute Basos (auto) (0-0.2) 10^3/ul Absolute Nucleated RBC 10^3/ul Nucleated RBC % INR (Anticoag Therapy) (0.89-1.11) APTT (26.0-36.3) seconds Sodium (133-145) mmol/L Potassium (3.5-5.0) mmol/L Chloride (101-111) mmol/L Carbon Dioxide (22-32) mmol/L Anion Gap (2-11) mmol/L BUN (6-24) mg/dL Creatinine (0.51-0.95) mg/dL Est GFR ( Amer) (>60) Est GFR (Non-Af Amer) (>60) BUN/Creatinine Ratio (8-20) Glucose (70-100) mg/dL Lactic Acid 1.7 (0.5-2.0) mmol/L Calcium (8.6-10.3) mg/dL Total Bilirubin (0.2-1.0) mg/dL AST (13-39) U/L ALT (7-52) U/L Alkaline Phosphatase (34-104) U/L Troponin I (<0.04) ng/mL C-Reactive Protein (< 5.00) mg/L Total Protein (6.4-8.9) g/dL Albumin (3.2-5.2) g/dL Globulin (2-4) g/dL Albumin/Globulin Ratio (1-3) Result Diagrams: 06/27/17 20:45 06/27/17 20:45 Lab Statement: Any lab studies that have been ordered have been reviewed, and results considered in the medical decision making process. - Radiology CXR Xray Interpretation: Positive (See Comments) - IMPRESSION: 1. COPD. 2. Persistent nodularity of the R upper lung. Radiology Interpretation Completed By: Radiologist - EKG 2034 Cardiac Rate: Tachycardia - 102 bpm EKG Rhythm: Sinus Tachycardia ST Segment: Non-Specific EKG Interpretation: nml axis, no STEMI Complex Multi-Symp Course/Dx Course Of Treatment: Pt is a 67 y/o F who was recently admitted for PNA, released yesterday. At home, she became increasingly weak. Associated sx: fever of 100.6 at 1700 yesterday, chills, cough, SOB, diarrhea, loss of appetite. Pt on Levaquin. PMHx: non-small cell lung CA metastasized to brain. Last chemo was 9 days ago. Denies past medical hx of CHF. Former smoker. No ETOH. Reviewed prev CAT scan from 06/25 that revealed new upper lobe infiltrate that were not present previously. Pt given duoneb, Cefepime, Levaquin and fluids in ED. WBC is 1.6. EKG is sinus tachy at 102 bpm, nml axis, no STEMI, non-specific ST changes. CXR shows "1. COPD. 2. Persistent nodularity of the R upper lung.". Consulted with hospitalist, will see pt in ED for possible admission. - Diagnoses Differential Diagnoses/HQI/PQRI: Metabolic Abnormality, Sepsis Provider Diagnoses: Pneumonia involving right lung - Physician Notifications Discussed Care Of Patient With: Rd Brooks - hospitalist Time Discussed With Above Provider: 21:10 Instructed by Provider To: MD Will See In ED Discharge - Discharge Plan Condition: Stable Disposition: ADMITTED TO [facility] Referrals: Marguerite Shook MD [Primary Care Provider] - The documentation as recorded by the Winston castellanos SooYoung accurately reflects the service I personally performed and the decisions made by me, Erich Mcqueen MD.
[2017-06-27] MEDS ORDERED: Vancomycin per Pharmacy* NOTE FOLLOW UP PRN (21:59)
[2017-06-27] MEDS ORDERED: Albuterol HFA INHALER* 8 gm MDI INH PRN (22:21)
[2017-06-27] MEDS ORDERED: NS 0.9% 50 ML* 50 ML ONE (22:27)
[2017-06-27] MEDS ORDERED: Vancomycin(*) 1,000 MG in NS 0.9% 250 ML* 250 ML IVPB ONE (23:00)
[2017-06-27 23:02] LABS: Urine Bacteria 1+ (Absent); Urine Bilirubin Negative (Negative); Urine Glucose Negative (Negative); Urine Nitrite Negative (Negative)
[2017-06-28] MEDS: Cefepime(*) 2 GM in NS 0.9% 50 ML* 50 ML IVPB ONE ×2 (00:26→00:37)
[2017-06-28] MEDS: Cefepime(*) 2 GM in NS 0.9% 50 ML* 50 ML IVPB SCH ×2 (00:39→12:27)
--- NOTE | 2017-06-28 02:02 | HP ---
CC: Dr. Timmy Rodriguez; Dr. Marguerite Shook * HISTORY AND PHYSICAL: DATE OF ADMISSION: 06/27/17 PRIMARY CARE PROVIDER: Dr. Marguerite Shook. ONCOLOGIST: Dr. Timmy Rodriguez. ATTENDING PHYSICIAN: Dr. Rd Brooks * (dictated by Trinity Rubio NP). CHIEF COMPLAINT: Fever and increased weakness after being discharged from the hospital with pneumonia. HISTORY OF PRESENT ILLNESS: Ms. Avila is a 67-year-old female with past medical history significant for celiac disease, chronic back pain, coronary artery disease, GERD, hyperlipidemia, hypertension, hypothyroidism, lung cancer , and brain cancer who presented to the emergency room today with complaints of fever and increased weakness since her discharge from the hospital yesterday. Ms. Avila was last diagnosed with UTI and completed a course of Cipro after presenting to the emergency room on 06/21/17, after she had developed some shortness of breath and the right lower rib pain. At that time, she was also noted to have a low-grade temperature of 100.2. The patient was discharged from the emergency room and was seen in followup by her primary care provider, Dr. Shook, on 06/23/17. At that time, she was found to be hypoxic with her oxygen saturation in the 70s and only up into the 80s with oxygen, so she was sent to the emergency room via EMS for further evaluation of her symptoms. The patient denies feeling worse, just felt that her shortness of breath had continued and she continued to have a cough. The patient was admitted to the hospital and treated for pneumonia with IV Levaquin. It's also to note that she was neutropic during her hospitalization. On 06/25/17, the patient had a chest CT showing a new right upper lobe and left lower lobe infiltrate, new right-sided pleural effusion with right bibasilar atelectasis. Pulmonary parenchymal nodules. She was discharged yesterday on 06/26/17 with oral Levaquin. The patient states that today her temperature was 100.6 ( although it is in the emergency room and EMS reports that the patient's temperature was 101). The patient states that throughout the day, she felt generally more weak, continued to have shortness of breath, but this was not worse than her baseline. The patient reports being on oxygen 2 L via nasal cannula at baseline at home. The patient reports being chilled. She denies any chest pain. She has a cough that she reports not being able to produce mucus. She denies any nausea, vomiting or diarrhea. She feels as though she is getting thrush from the antibiotics. She denies any urinary symptoms or diarrhea. Due to the patient continuing to feel weak and her low-grade fever, she decided to present to the emergency room for reevaluation of her symptoms. While in the emergency room, the patient's labs were significant for an elevated CRP of 180.08. This is actually down from previous labs at which time , her CRP was 448 on the June 23. The patient was also neutropenic. During her previous stay, her neutrophils have improved to 1.3 with her labs today. The patient has thrombocytopenia. This appears to be chronic for her. She is not found to be afebrile in the emergency room. Her temperature was 99.5. Although the patient was requiring increased oxygen 4 L via nasal cannula. The patient states that she generally feels that she was sent home too early from the hospital. Hospitalists were asked to evaluate the patient for admission. PAST MEDICAL HISTORY: 1. Brain cancer. 2. Lung cancer. 3. Celiac disease. 4. Chronic back pain. 5. Coronary artery disease, status post myocardial infarction and stent placement in 2012. 6. Diverticulitis. 7. GERD. 8. Hyperlipidemia. 9. Hypertension. 10. Hypothyroidism. 11. Chronic obstructive pulmonary disease. PAST SURGICAL HISTORY: 1. Status post aortic aneurysm clipping in 2009. 2. Status post bowel resection and reanastomosis in 2012. 3. Status post coronary stenting in 2012. 4. Status post an iliac femoral stent in 2012. 5. Status post tubal ligation in 1974. HOME MEDICATIONS: Include: 1. Folic acid 1 mg oral daily. 2. Ferrous sulfate 325 mg oral every morning. 3. Colace 100 mg oral every day. 4. Calcium carbonate/vitamin D 1 tablet oral daily. 5. Atorvastatin 40 mg oral every morning. 6. Aspirin 162 mg oral daily. 7. Albuterol HFA 1 to 2 puffs inhalation every 6 hours as needed for shortness of breath or wheeze. 8. Wellbutrin 150 mg oral every morning. 9. Vitamin A 8000 units oral daily. 10. Omeprazole 20 mg oral every morning. 11. Ensure 1 can 3 times daily. 12. Nitroglycerin 0.4 sublingual every 5 minutes as needed for chest pain. 13. Nicotine patch 7 mg transdermal daily. 14. Metoprolol succinate 25 mg oral daily. 15. Magnesium 250 mg oral every morning. 16. Levothyroxine 125 mcg oral daily. 17. Percocet 5/325 one tablet oral every 6 hours as needed for pain. ALLERGIES: The patient reports yeast infections with PENICILLIN. FAMILY HISTORY: The patient denies any family history of diabetes mellitus or coronary artery disease. She has a cousin with a history of metastatic cancer in her 70s. Her mom had lung, liver, and stomach cancer. She had an aunt with a history of unknown cancer. She had a grandmother with history of coronary artery disease. SOCIAL HISTORY: The patient reports quitting smoking 2 weeks ago. She has a 51 - year-smoking history of approximately half a pack a day. She is a former alcoholic. She smokes marijuana daily. The patient's cousin, Ana Jackson, will be her surrogate decision maker in the event that she is unable to make decisions for herself. REVIEW OF SYSTEMS: I performed a 14-point review of systems. All the pertinent positives and negatives are mentioned in the history of present illness. Remaining review of systems is negative. PHYSICAL EXAMINATION GENERAL APPEARANCE: The patient is alert, pleasant, appears to be in no acute distress. VITAL SIGNS: Temperature 99.5, heart rate 103, respiratory rate 20, O2 sat 98% on 4 L via nasal cannula, blood pressure 148/69. HEENT: Normocephalic, atraumatic. Pupils are equal and reactive to light. Extraocular movements are intact. RESPIRATORY: There is no accessory muscle use and lungs are clear to auscultation bilaterally, but diminished. ABDOMEN: Soft, nontender, nondistended. There are bowel sounds present x4. EXTREMITIES: There is no lower extremity edema. DP and PT pulses are 2+ and symmetric. MUSCULOSKELETAL: There is no clubbing or cyanosis noted. The patient exhibits good strength in all extremities. NEUROLOGIC: The patient is alert and oriented x4. Cranial nerves II through XII are grossly intact. PSYCHOLOGICAL: The patient is calm and cooperative. DIAGNOSTIC STUDIES/LABORATORY DATA: Sodium 131, potassium 3.6, chloride 94, CO2 29, BUN 18, creatinine 0.76, glucose 102. White blood cell count 1.6, hemoglobin 11.2, hematocrit 32, platelet count 42. CRP 180.08. ECG shows sinus tachycardia at a rate of 102. This ECG is similar to previous EKG with the exception that the previous EKG from 06/23/[address] depression that has now resolved. The patient has no acute signs of ischemia. Chest x-ray from today. Radiologist's impression: COPD, persistent nodularity , right upper lobe. IMPRESSION: Ms. Avila is a 67-year-old female with past medical history significant for brain cancer, lung cancer, chronic obstructive pulmonary disease , chronic back pain, coronary artery disease, status post myocardial infarction with stenting, gastroesophageal reflux disease, hyperlipidemia, hypertension, hypothyroidism, peripheral vascular disease who presents to the emergency room with complaints of increased weakness and fever after recently being discharged from the hospital for pneumonia. She will be admitted as an inpatient for pneumonia. ASSESSMENT AND PLAN: 1. Pneumonia. The patient was previously on Levaquin. We will change her to IV cefepime and vancomycin. We will plan to narrow the antibiotic spectrum once she is improving and if we are able to identify a bacteria. We will send a sputum culture and urine for legionella and S. pneumoniae. We will also check a procalcitonin and get blood cultures. Give the patient gentle IV hydration, recheck her labs in the morning. She is currently afebrile. 2. Weakness. I suspect this is secondary to the patient's lung infection, deconditioning and chemotherapy. We will get a physical therapy evaluation. 3. Thrombocytopenia. The patient appears to be at her baseline. 4. Coronary artery disease. The patient will be continued on her metoprolol, aspirin, and atorvastatin. 5. Hypothyroidism. The patient will be continued on her home levothyroxine. Her last TSH from 06/17/17 was 2.30. 6. Gastroesophageal reflux disease. The patient will be continued on home omeprazole. 7. Tobacco abuse. The patient will be continued on home Wellbutrin and nicotine patch. The patient states that she has not smoked for 2 weeks and she was congratulated for her job well done. 8. Chronic obstructive pulmonary disease. The patient will be continued on her home albuterol as needed. 9. Fluids, electrolytes and nutrition. The patient will be on a regular diet. 10. Code status. Full code. 11. DVT prophylaxis. The patient is a high risk. She will be placed on SCDs. We will hold chemical DVT prophylaxis due to the patient's thrombocytopenia. 12. Disposition. Inpatient. TIME SPENT: Time for this admission was approximately 60 minutes, greater than half of that was spent with the patient discussing the medications, past medical history, and events leading up to her arrival today and performing a physical examination. The case has been reviewed with the attending, Dr. Brooks, who agrees with the plan of care. Reviewed by MATHEUS THOMAS 06/28/17 [id number]/[facility] #: [id number] [place]
[2017-06-28] MEDS: oxyCODONE/Acetamin 5/325 MG* TAB PO PRN ×2 (03:18→13:25)
[2017-06-28] MEDS ORDERED: NS 0.9% 250 ML* 250 ML ONE (05:25)
[2017-06-28] MEDS: Levothyroxine TAB* 125 MCG TAB PO SCH (05:32)
[2017-06-28 06:01] LABS: Hematocrit 32 % (35-47); Hemoglobin 10.6 g/dl (12.0-16.0); Mean Corpuscular HGB Conc 33 g/dl (31-36); Mean Corpuscular Hemoglobin 33 pg (27-31); Mean Corpuscular Volume 98 fL (80-97); Mean Platelet Volume 8 um3 (7.4-10.4); Red Blood Count 3.28 10^6/ul (4.0-5.4); Red Cell Distribution Width 18 % (10.5-15)
[2017-06-28 06:02] LABS: Comments Flag Yes; White Blood Count 1.4 10^3/ul (3.5-10.8)
[2017-06-28] MEDS ORDERED: Vancomycin(*) 1,000 MG in NS 0.9% 250 ML* 250 ML IVPB SCH (06:30)
[2017-06-28 07:02] LABS: BUN/Creatinine Ratio 22.7 (8-20); Calcium 7.7 mg/dL (8.6-10.3); EGFR African American 114.5 (>60); EGFR Non-African American 89.1 (>60); Potassium 3.5 mmol/L (3.5-5.0)
--- NOTE | 2017-06-28 08:12 | PN ---
Subjective Date of Service: 06/28/17 Interval History: Ms. Avila states that she is feeling relatively well today. She notes that she returned to the hospital yesterday because she had a fever of 100.6. She complains of persistent right upper chest pain when she takes a deep breath. She reports some mild shortness of breath. She denies nausea or abdominal pain. Objective Active Medications: Albuterol (Ventolin Hfa Inhaler*) 2 puff INH Q6H PRN Aspirin (Aspirin Ec Low Dose*) 162 mg PO DAILY [facility] Atorvastatin Calcium (Lipitor*) 40 mg PO QAM [facility] Bupropion HCl (Wellbutrin Sr Tab*) 150 mg PO QAM [facility] Docusate Sodium (Colace Cap*) 100 mg PO DAILY [facility] Ferrous Sulfate (Ferrous Sulfate Tab*) 325 mg PO QAM [facility] Folic Acid (Folvite Tab*) 1 mg PO DAILY [facility] Cefepime HCl 2 gm/ Sodium (Chloride) 50 mls @ 100 mls/hr IVPB Q12H [facility] Sodium Chloride (Ns 0.9% 1000 Ml*) 1,000 mls @ 75 mls/hr IV PER RATE [facility] Levothyroxine Sodium (Synthroid Tab*) 125 mcg PO DAILY@0600 [facility] Magnesium Oxide (Magox 400 Tab*) 200 mg PO QAM [facility] Metoprolol Succinate (Toprol Xl Tab*) 25 mg PO DAILY [facility] Nicotine (Nicotine Patch 7 Mg/24 Hr*) 1 patch TRANSDERM DAILY [facility] Omeprazole (Prilosec Cap*) 20 mg PO DAILY@0730 [facility] Oxycodone/Acetaminophen (Percocet 5/325 Tab*) 1 tab PO Q6H PRN Pharmacy Profile Note (Nicotine Patch Removal Note*) 1 note PATCH OFF 2100 [facility] Pharmacy Profile Note (Vancomycin Trough Check) 1 note FOLLOW UP 0600 [facility] Vital Signs 06/27/17 06/27/17 06/27/17 21:41 22:00 23:29 Temperature 100.6 F Pulse Rate 106 104 Respiratory 18 Rate Blood Pressure 118/62 118/59 135/58 (mmHg) O2 Sat by Pulse 93 97 Oximetry 06/28/17 06/28/17 06/28/17 03:18 03:22 05:18 Temperature 99.7 F Pulse Rate 109 Respiratory 20 18 16 Rate Blood Pressure 134/61 (mmHg) O2 Sat by Pulse 93 Oximetry Oxygen Devices in Use Now: Nasal Cannula Appearance: Female lying in bed in NAD Eyes: No Scleral Icterus Ears/Nose/Mouth/Throat: Mucous Membranes Moist Neck: Trachea Midline Respiratory: Symmetrical Chest Expansion and Respiratory Effort, - - coarse rhonchi to right upper chest, clear otherwise Cardiovascular: NL Sounds; No Murmurs; No JVD, No Edema Abdominal: NL Sounds; No Tenderness; No Distention Lymphatic: No Cervical Adenopathy Extremities: No Edema Skin: No Rash or Ulcers Neurological: Alert and Oriented x 3, NL Muscle Strength and Tone Nutrition: Taking PO's Result Diagrams: 06/28/17 05:39 06/28/17 05:39 Additional Lab and Data: Lab Results 06/27/17 06/27/17 06/27/17 Range/Units 20:45 20:45 20:45 WBC 1.6 L (3.5-10.8) 10^3/ul RBC 3.36 L (4.0-5.4) 10^6/ul Hgb 11.2 L (12.0-16.0) g/dl Hct 32 L (35-47) % MCV 96 (80-97) fL MCH 33 H (27-31) pg MCHC 35 (31-36) g/dl RDW 18 H (10.5-15) % Plt Count 42 L D (150-450) 10^3/ul MPV 8 (7.4-10.4) um3 Neut % (Auto) 80.0 (38-83) % Lymph % (Auto) 16.2 L (25-47) % Louisa % (Auto) 2.8 (1-9) % Eos % (Auto) 0.7 (0-6) % Baso % (Auto) 0.3 (0-2) % Absolute Neuts (auto) 1.3 L (1.5-7.7) 10^3/ul Absolute Lymphs (auto) 0.3 L (1.0-4.8) 10^3/ul Absolute Monos (auto) 0 (0-0.8) 10^3/ul Absolute Eos (auto) 0 (0-0.6) 10^3/ul Absolute Basos (auto) 0 (0-0.2) 10^3/ul Absolute Nucleated RBC 0.07 10^3/ul Nucleated RBC % 4.4 INR (Anticoag Therapy) 1.15 H (0.89-1.11) APTT 25.9 L (26.0-36.3) seconds Sodium 131 L (133-145) mmol/L Potassium 3.6 (3.5-5.0) mmol/L Chloride 94 L (101-111) mmol/L Carbon Dioxide 29 (22-32) mmol/L Anion Gap 8 (2-11) mmol/L BUN 18 (6-24) mg/dL Creatinine 0.76 (0.51-0.95) mg/dL Est GFR ( Amer) 97.3 (>60) Est GFR (Non-Af Amer) 75.7 (>60) BUN/Creatinine Ratio 23.7 H (8-20) Glucose 102 H (70-100) mg/dL Lactic Acid (0.5-2.0) mmol/L Calcium 8.8 (8.6-10.3) mg/dL Total Bilirubin 0.40 (0.2-1.0) mg/dL AST 56 H (13-39) U/L ALT 80 H (7-52) U/L Alkaline Phosphatase 51 (34-104) U/L Troponin I 0.01 (<0.04) ng/mL C-Reactive Protein 180.08 H (< 5.00) mg/L Total Protein 6.4 (6.4-8.9) g/dL Albumin 3.1 L (3.2-5.2) g/dL Globulin 3.3 (2-4) g/dL Albumin/Globulin Ratio 0.9 L (1-3) 06/27/17 Range/Units 20:45 WBC (3.5-10.8) 10^3/ul RBC (4.0-5.4) 10^6/ul Hgb (12.0-16.0) g/dl Hct (35-47) % MCV (80-97) fL MCH (27-31) pg MCHC (31-36) g/dl RDW (10.5-15) % Plt Count (150-450) 10^3/ul MPV (7.4-10.4) um3 Neut % (Auto) (38-83) % Lymph % (Auto) (25-47) % Louisa % (Auto) (1-9) % Eos % (Auto) (0-6) % Baso % (Auto) (0-2) % Absolute Neuts (auto) (1.5-7.7) 10^3/ul Absolute Lymphs (auto) (1.0-4.8) 10^3/ul Absolute Monos (auto) (0-0.8) 10^3/ul Absolute Eos (auto) (0-0.6) 10^3/ul Absolute Basos (auto) (0-0.2) 10^3/ul Absolute Nucleated RBC 10^3/ul Nucleated RBC % INR (Anticoag Therapy) (0.89-1.11) APTT (26.0-36.3) seconds Sodium (133-145) mmol/L Potassium (3.5-5.0) mmol/L Chloride (101-111) mmol/L Carbon Dioxide (22-32) mmol/L Anion Gap (2-11) mmol/L BUN (6-24) mg/dL Creatinine (0.51-0.95) mg/dL Est GFR ( Amer) (>60) Est GFR (Non-Af Amer) (>60) BUN/Creatinine Ratio (8-20) Glucose (70-100) mg/dL Lactic Acid 1.7 (0.5-2.0) mmol/L Calcium (8.6-10.3) mg/dL Total Bilirubin (0.2-1.0) mg/dL AST (13-39) U/L ALT (7-52) U/L Alkaline Phosphatase (34-104) U/L Troponin I (<0.04) ng/mL C-Reactive Protein (< 5.00) mg/L Total Protein (6.4-8.9) g/dL Albumin (3.2-5.2) g/dL Globulin (2-4) g/dL Albumin/Globulin Ratio (1-3) Microbiology and Other Data: Microbiology 06/27/17 22:35 Legionella Urinary Antigen - Final Urine Negative Legionella Streptococcus pneumoniae Ag Screen - Final Positive S. Pneumo Antigen Assess/Plan/Problems-Billing Assessment: Ms. Avila is a 67 yo female with a PMH of CAD, COPD, metastatic NSC lung cancer currently on pemetrexed/avastin with associated pancytopenia, and recent admission for pneumonia who was discharged on 06/26/17 and returned on 06/27/17 with persistent SOB and fever with strep pneumonia. - Patient Problems (1) Community acquired pneumonia Comment: - With acute hypoxic respiratory failure, currently on 4L NC. - T max 100.6 since arrival. CRP has fallen since 06/23/17: 448 -> 180. - Strep pneumo antigen positive. - Was on course of levaquin for pneumonia without improvement. Continue cefepime, discontinue vancomycin. (2) Pancytopenia due to antineoplastic chemotherapy Comment: - Counts generally improving since 06/21/17, though slightly down today. - Monitor. Continue iron and folic acid supplementation. (3) CAD (coronary artery disease) Comment: - Asymptomatic. - History of NSTEMI 2011. - Continue aspirin, atorvastatin, and metoprolol. (4) Hypothyroidism Comment: - Continue levothyroxine. (5) COPD (chronic obstructive pulmonary disease) Comment: - No evidence of acute exacerbation. - Continue albuterol prn. (6) Tobacco abuse Comment: - Smoking cessation applauded and encouraged. - Continue home welbutrin and nicotine replacement therapy. (7) GERD (gastroesophageal reflux disease) Comment: - Continue omeprazole. (8) Full code status (9) DVT prophylaxis Comment: - SCDs only due to thrombocytopenia. Status and Disposition: Inpatient with expected LOS > 2 days. Anticipate discharge to home when medically stable.
[2017-06-28] MEDS: Nicotine PATCH 7 MG/24 HR* PATCH TRANSDERM SCH (09:16)
[2017-06-28] MEDS: Ferrous Sulfate TAB* 325 MG PO SCH (09:18)
[2017-06-28] MEDS: NS 0.9% 1000 ML* 1,000 ML IV SCH (09:18)
[2017-06-28] MEDS: Magnesium Oxide TAB* 400 MG PO SCH (09:18)
[2017-06-28] MEDS: Folic Acid TAB* 1 MG PO SCH (09:18)
[2017-06-28] MEDS: Docusate CAP* 100 MG PO SCH (09:18)
[2017-06-28] MEDS: buPROPion SR TAB.SR* 150 MG PO SCH (09:18)
[2017-06-28] MEDS: Atorvastatin* 40 MG TAB PO SCH (09:18)
[2017-06-28] MEDS: Omeprazole CAP* 20 MG PO SCH (09:18)
[2017-06-28] MEDS: Metoprolol Succinate XL TAB* 25 MG PO SCH (09:18)
[2017-06-28] MEDS: Aspirin EC Low Dose* 81 MG TAB.EC PO SCH (09:19)
[2017-06-28] MEDS: Acetaminophen TAB* 325 MG PO PRN (16:25)
[2017-06-28] MEDS: Nicotine Patch Removal NOTE PATCH OFF SCH (20:44)
[2017-06-29] MEDS: Cefepime(*) 2 GM in NS 0.9% 50 ML* 50 ML IVPB SCH ×2 (00:20→11:57)
[2017-06-29] MEDS: Acetaminophen TAB* 325 MG PO PRN ×2 (00:20→16:07)
[2017-06-29] MEDS: NS 0.9% 1000 ML* 1,000 ML IV SCH ×2 (00:43→05:11)
[2017-06-29] MEDS: oxyCODONE/Acetamin 5/325 MG* TAB PO PRN ×2 (01:45→20:17)
[2017-06-29] MEDS: Levothyroxine TAB* 125 MCG TAB PO SCH (05:06)
[2017-06-29 05:49] LABS: Hematocrit 28 % (35-47); Hemoglobin 9.3 g/dl (12.0-16.0); Mean Corpuscular HGB Conc 34 g/dl (31-36); Mean Corpuscular Hemoglobin 33 pg (27-31); Mean Corpuscular Volume 97 fL (80-97); Mean Platelet Volume 7 um3 (7.4-10.4); Red Blood Count 2.84 10^6/ul (4.0-5.4); Red Cell Distribution Width 18 % (10.5-15)
[2017-06-29 05:50] LABS: Comments Flag Yes; White Blood Count 1.4 10^3/ul (3.5-10.8)
[2017-06-29 05:56] LABS: BUN/Creatinine Ratio 27.5 (8-20); Calcium 7.5 mg/dL (8.6-10.3); EGFR African American 154.2 (>60); EGFR Non-African American 119.9 (>60); Potassium 3.1 mmol/L (3.5-5.0)
[2017-06-29] MEDS ORDERED: Vancomycin Trough Check NOTE FOLLOW UP ONE (06:00)
[2017-06-29] MEDS: Atorvastatin* 40 MG TAB PO SCH (08:44)
[2017-06-29] MEDS: Ferrous Sulfate TAB* 325 MG PO SCH (08:45)
[2017-06-29] MEDS: Omeprazole CAP* 20 MG PO SCH (08:45)
[2017-06-29] MEDS: Nicotine PATCH 7 MG/24 HR* PATCH TRANSDERM SCH (08:45)
[2017-06-29] MEDS: Folic Acid TAB* 1 MG PO SCH (08:45)
[2017-06-29] MEDS: Aspirin EC Low Dose* 81 MG TAB.EC PO SCH (08:45)
[2017-06-29] MEDS: Docusate CAP* 100 MG PO SCH (08:45)
[2017-06-29] MEDS: buPROPion SR TAB.SR* 150 MG PO SCH (08:45)
[2017-06-29] MEDS: Magnesium Oxide TAB* 400 MG PO SCH (08:45)
[2017-06-29] MEDS: Metoprolol Succinate XL TAB* 25 MG PO SCH (08:45)
--- NOTE | 2017-06-29 10:14 | PN ---
Progress Note - Progress Note Date of Service: 06/29/17 SOAP: Subjective: []Went home and became weaker, could not sit up. Then took temprature and 101.2. Came to ER and fever 101.7. Remains very SOB. Was able to walk but breathing difficult. Acetaminophen (Tylenol Tab*) 650 mg PO Q6H PRN PRN Reason: FEVER Last Admin: 06/29/17 00:20 Dose: 650 mg Albuterol (Ventolin Hfa Inhaler*) 2 puff INH Q6H PRN PRN Reason: SHORTNESS OF BREATH Last Admin: 06/28/17 17:50 Dose: 2 puff Aspirin (Aspirin Ec Low Dose*) 162 mg PO DAILY [facility] Last Admin: 06/29/17 08:45 Dose: Not Given Atorvastatin Calcium (Lipitor*) 40 mg PO QAM [facility] Last Admin: 06/29/17 08:44 Dose: 40 mg Bupropion HCl (Wellbutrin Sr Tab*) [facility] [place] Last Admin: 06/29/17 08:45 Dose: 150 mg Docusate Sodium (Colace Cap*) 100 mg PO DAILY [facility] Last Admin: 06/29/17 08:45 Dose: 100 mg Ferrous Sulfate (Ferrous Sulfate Tab*) [facility] [place] Last Admin: 06/29/17 08:45 Dose: 325 mg Folic Acid (Folvite Tab*) 1 mg PO DAILY [facility] Last Admin: 06/29/17 08:45 Dose: 1 mg Cefepime HCl 2 gm/ Sodium (Chloride) 50 mls @ 100 mls/hr IVPB Q12H [facility] Last Admin: 06/29/17 00:20 Dose: 100 mls/hr Potassium Chloride/Sodium Chloride (Ns 0.9% W/ 40 Meq Kcl 1000 Ml*) 1,000 mls @ 75 mls/hr IV PER RATE [facility] Levothyroxine Sodium (Synthroid Tab*) 125 mcg PO DAILY@0600 [facility] Last Admin: 06/29/17 05:06 Dose: 125 mcg Magnesium Oxide (Magox 400 Tab*) 200 mg PO QAM [facility] Last Admin: 06/29/17 08:45 Dose: 200 mg Metoprolol Succinate (Toprol Xl Tab*) 25 mg PO DAILY [facility] Last Admin: 06/29/17 08:45 Dose: 25 mg Nicotine (Nicotine Patch 7 Mg/24 Hr*) 1 patch TRANSDERM DAILY [facility] Last Admin: 06/29/17 08:45 Dose: 1 patch Omeprazole (Prilosec Cap*) 20 mg PO DAILY@0730 [facility] Last Admin: 06/29/17 08:45 Dose: 20 mg Oxycodone/Acetaminophen (Percocet 5/325 Tab*) 1 tab PO Q6H PRN PRN Reason: PAIN Last Admin: 06/29/17 01:45 Dose: 1 tab Pharmacy Profile Note (Nicotine Patch Removal Note*) 1 note PATCH OFF 2100 [facility] Last Admin: 06/28/17 20:44 Dose: 1 note Objective: [] Vital Signs Temp Pulse Resp BP Pulse Ox 98.5 F 81 16 110/54 95 06/29/17 07:22 06/29/17 07:22 06/29/17 07:22 06/29/17 07:22 06/29/17 07:22 HEENT - Pale, no thrush CTA RRR S12 +BS, obese Skin - diffuse bruising, petechia Ext +1 edema Assessment: []67 year old recurrent NSCLC and now with prolonged cytopenias after one cycle of chemotherapy and re-admission for pneumonia, + S pneumo antigen. Now on Cefepim and Vanco Plan: []1. Pneumonia. Follow fever and will consult ID for plan for antibiotics now and on discharge. 2. Pancytopenia. - Will start Neupogen 480 mcg daily, hold for ANC > 5000 - Follow plts and transfuse < 20,000 - Follow Hgb, check iron studies and if elevated, stop oral iron. 3. COPD. Cont MDI, try Advair 4. Disp. Keep walking every day, possible [place]. PT eval for difficulty getting up from toilet.
[2017-06-29 10:25] LABS: Immature Granulocytes 15 % (0-9); Myelocytes % 1 % (0-1); Neutrophil % 62 % (38-83); RBC Morphology Normal (Normal)
[2017-06-29] MEDS: FILGRASTIM-SNDZ* 480 MCG/0.8 ML SYRINGE SUBCUT SCH (11:57)
[2017-06-29] MEDS: NS 0.9% w/ 40 Meq KCL 1000 ML* 1,000 ML IV SCH (12:01)
--- NOTE | 2017-06-29 14:07 | CONS ---
CONSULTATION REPORT: DATE OF CONSULT: 06/29/17 REQUESTING PHYSICIAN: Timmy Rodriguez MD CONSULTING SERVICE: Infectious Disease. REASON FOR CONSULTATION: Pneumonia, persistent fever, neutropenia. IMPRESSION: 1. A 67-year-old woman with lung cancer, recent chemotherapy and recent neutropenia with a CT scan of the that showed right upper lobe and left lower lobe infiltrates. The left lower lobe infiltrate shows air bronchograms. I am concerned that the right upper lobe lesion is associated with her lung cancer and post-obstructive pneumonia. A pneumococcal antigen was positive, but it could other mira present in post-obstructive infection as well. 2. Sputum Gram stain showed gram-positive cocci, gram-positive bacilli, gram- negative bacilli. Cultures pending. 3. Lung cancer with brain metastases, on chemotherapy. 4. Coronary artery disease with history of myocardial infarction. 5. Macule on her back, which is painful may have been blister, which has resolved, varicella reactivation is a consideration, but I think is a little bit less likely. RECOMMENDATIONS: 1. Agree with cefepime, will add clindamycin for anaerobic coverage 600 mg every 8 hours. Follow her fever curve. 2. We will add topical antiviral to see if that helps with her symptoms. There is nothing there to unroof for a specimen. HISTORY OF PRESENT ILLNESS: This is a 67-year-old woman with lung cancer, admitted with cough and fever. She was admitted initially on the for the same. She had those symptoms for a few days. She was started on Levaquin, had some improvement in her symptoms including resolution of her fever. She was discharged on the , came back the with the return of fever, her cough and fatigue were unchanged as was her dyspnea. She had no chest pain. Her CRP initially was about 450 on the , when she came back it was down to 180 while taking oral Levaquin as an outpatient. She continues to have cough, which is nonproductive. She has had no hemoptysis. She had the sputum sample she was able to produce yesterday. Cultures pending. The blood cultures are negative at this point. The urine pneumococcal antigen is positive, legionella antigen is negative. PAST MEDICAL HISTORY: 1. Celiac disease. 2. Back pain. 3. Coronary artery disease, status post PCI 2012. 4. Diverticulosis. 5. Gastroesophageal reflux disease. 6. Hyperlipidemia. 7. Hypertension. 8. Hypothyroidism. 9. COPD. 10. Peripheral vascular disease. 11. Lung cancer, adenocarcinoma. 12. Right upper lobe 3.5 cm mass treated initially in the fall of 2015 with carboplatin and pemetrexed. 13. Found to have brain metastases, April 2017 treated with radiation. PAST SURGICAL HISTORY: 1. 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 2. Status post partial bowel resection and anastomosis, 2012. 3. Status post femoral artery stent, 2012. ALLERGIES: PENICILLIN caused an yeast infection. FAMILY HISTORY: Mother had lung, liver, and stomach cancer; aunt with unknown type of cancer; grandmother had coronary artery disease. SOCIAL HISTORY: Past smoker up until 2 weeks ago. Does smoke marijuana. REVIEW OF SYSTEMS: All negative to full review of systems except those noted above. PHYSICAL EXAM: Vital Signs: Temperature is 37, heart rate is 80, respiratory rate 16, blood pressure 110/54, O2 sat 94% on 3 L. General: She is awake, not in distress. Neurologic: She is oriented x3. Follows all commands. HEENT: There is no conjunctival hemorrhage. There is no oral lesion. There is a well healed right frontal craniotomy scar. Neck: Supple without nuchal rigidity. Lymph Nodes: There is no cervical, supraclavicular, inguinal, axillary, or epitrochlear lymphadenopathy. Heart: Regular rate and rhythm without murmurs, rubs, or gallops. Lungs: Decreased breath sounds at the bases bilaterally. There is no wheezes or rales. Abdomen: Soft, nontender, and nondistended. There are bowel sounds present. Skin: There is no rash or splinter hemorrhages. On her mid thoracic back, there is a 1 cm macule with mild erythema and what looks like a ruptured bulla without any fluid present. There is no tenderness to palpation. Musculoskeletal: No spinal tenderness to palpation or joint synovitis. DIAGNOSTIC STUDIES/LAB DATA: White blood cell count 1.4, hemoglobin 9, platelets 24, absolute neutrophil count 1000. Creatinine is 0.5. CRP 180 on the . ALT was 80. Please see impression and recommendations outlined above. Thank you for asking me to see Ms. Avila in consultation. [id number]/[facility] #: [id number] [facility]
[2017-06-29] MEDS: Docosanol 10%* CREAM 2 GM TUBE TOPICAL SCH ×2 (14:21→20:20)
[2017-06-29] MEDS: Clindamycin 600 MG IVPREMIX(* 600 MG/50 ML SDV IV SCH ×2 (14:21→20:18)
[2017-06-29] MEDS: Mometasone/Formoter 200/5 MDI INH SCH (19:58)
[2017-06-29] MEDS: Nicotine Patch Removal NOTE PATCH OFF SCH (20:20)
[2017-06-30] MEDS: Cefepime(*) 2 GM in NS 0.9% 50 ML* 50 ML IVPB SCH ×2 (01:01→11:31)
[2017-06-30] MEDS: Clindamycin 600 MG IVPREMIX(* 600 MG/50 ML SDV IV SCH ×3 (05:05→21:46)
[2017-06-30 06:10] LABS: Hematocrit 27 % (35-47); Hemoglobin 9.3 g/dl (12.0-16.0); Mean Corpuscular HGB Conc 34 g/dl (31-36); Mean Corpuscular Hemoglobin 33 pg (27-31); Mean Corpuscular Volume 97 fL (80-97); Red Blood Count 2.81 10^6/ul (4.0-5.4); Red Cell Distribution Width 18 % (10.5-15); White Blood Count 2.5 10^3/ul (3.5-10.8)
[2017-06-30 06:17] LABS: Add Diff/Slide Review? Slide Review Added; Comments Flag Yes
[2017-06-30] MEDS: Levothyroxine TAB* 125 MCG TAB PO SCH (06:18)
[2017-06-30 06:25] LABS: Albumin 2.2 g/dL (3.2-5.2); BUN/Creatinine Ratio 31.6 (8-20); Calcium 7.9 mg/dL (8.6-10.3); EGFR African American 135.7 (>60); EGFR Non-African American 105.5 (>60); Globulin 2.6 g/dL (2-4); Magnesium 1.7 mg/dL (1.9-2.7); Potassium 3.4 mmol/L (3.5-5.0); Total Bilirubin 0.5 mg/dL (0.2-1.0); Total Protein 4.8 g/dL (6.4-8.9)
[2017-06-30] MEDS: Folic Acid TAB* 1 MG PO SCH (08:05)
[2017-06-30] MEDS: Nicotine PATCH 7 MG/24 HR* PATCH TRANSDERM SCH (08:05)
[2017-06-30] MEDS: Aspirin EC Low Dose* 81 MG TAB.EC PO SCH (08:05)
[2017-06-30] MEDS: Ferrous Sulfate TAB* 325 MG PO SCH (08:05)
[2017-06-30] MEDS: Atorvastatin* 40 MG TAB PO SCH (08:05)
[2017-06-30] MEDS: Metoprolol Succinate XL TAB* 25 MG PO SCH (08:05)
[2017-06-30] MEDS: buPROPion SR TAB.SR* 150 MG PO SCH (08:05)
[2017-06-30] MEDS: Magnesium Oxide TAB* 400 MG PO SCH (08:05)
[2017-06-30] MEDS: Omeprazole CAP* 20 MG PO SCH (08:05)
[2017-06-30] MEDS: FILGRASTIM-SNDZ* 480 MCG/0.8 ML SYRINGE SUBCUT SCH (08:05)
[2017-06-30] MEDS: Docusate CAP* 100 MG PO SCH (08:07)
[2017-06-30] MEDS: Docosanol 10%* CREAM 2 GM TUBE TOPICAL SCH ×3 (08:13→21:46)
[2017-06-30] MEDS: Mometasone/Formoter 200/5 MDI INH SCH ×2 (09:22→20:03)
--- NOTE | 2017-06-30 11:30 | PN ---
Progress Note - Progress Note Date of Service: 06/30/17 SOAP: Subjective: []Still not feeling great. Still SOB and harsh wet cough. Weak. Yesterday nursing noted open area on gluteal fold, upper back, and question of blisters to right upper gluteal region. Pt. denies any pain or burning in the area except pain to gluteal region with repositioning. Medications: Acetaminophen (Tylenol Tab*) 650 mg PO Q6H PRN PRN Reason: FEVER Last Admin: 06/29/17 16:07 Dose: 650 mg Albuterol (Ventolin Hfa Inhaler*) 2 puff INH Q6H PRN PRN Reason: SHORTNESS OF BREATH Last Admin: 06/28/17 17:50 Dose: 2 puff Aspirin (Aspirin Ec Low Dose*) 162 mg PO DAILY [facility] Last Admin: 06/30/17 08:05 Dose: 162 mg Atorvastatin Calcium (Lipitor*) 40 mg PO QAM [facility] Last Admin: 06/30/17 08:05 Dose: 40 mg Bupropion HCl (Wellbutrin Sr Tab*) 150 mg PO QAM [facility] Last Admin: 06/30/17 08:05 Dose: 150 mg Docosanol (Abreva 10%*) 1 applic TOPICAL TID [facility] Last Admin: 06/30/17 08:13 Dose: 1 applic Docusate Sodium (Colace Cap*) 100 mg PO DAILY [facility] Last Admin: 06/30/17 08:07 Dose: 100 mg Ferrous Sulfate (Ferrous Sulfate Tab*) 325 mg PO QAM [facility] Last Admin: 06/30/17 08:05 Dose: 325 mg Filgrastim-Sndz (Zarxio*) 480 mcg SUBCUT DAILY [facility] Last Admin: 06/30/17 08:05 Dose: 480 mcg Folic Acid (Folvite Tab*) 1 mg PO DAILY [facility] Last Admin: 06/30/17 08:05 Dose: 1 mg Heparin Sodium (Porcine) (Heparin Flush Picc/Ml/Cvc(*)) 1 - 3 ml FLUSH 0600, 1800 [facility] PRN Reason: Protocol Cefepime HCl 2 gm/ Sodium (Chloride) 50 mls @ 100 mls/hr IVPB Q12H [facility] Last Admin: 06/30/17 11:31 Dose: 100 mls/hr Potassium Chloride/Sodium Chloride (Ns 0.9% W/ 40 Meq Kcl 1000 Ml*) 1,000 mls @ 75 mls/hr IV PER RATE [facility] Last Admin: 06/29/17 12:01 Dose: 75 mls/hr Clindamycin HCl/Dextrose (Cleocin 600 Mg Ivpremix(*) Sdv) 600 mg in 50 mls @ 100 mls/hr IV Q8H [facility] Last Admin: 06/30/17 05:05 Dose: Not Given Levothyroxine Sodium (Synthroid Tab*) 125 mcg PO DAILY@0600 [facility] Last Admin: 06/30/17 06:18 Dose: 125 mcg Magnesium Oxide (Magox 400 Tab*) 200 mg PO QAM [facility] Last Admin: 06/30/17 08:05 Dose: 200 mg Metoprolol Succinate (Toprol Xl Tab*) 25 mg PO DAILY [facility] Last Admin: 06/30/17 08:05 Dose: 25 mg Mometasone Furoate/Formoterol Fumar (Dulera 200/5 Mdi*) 2 puff INH BID [facility] Last Admin: 06/30/17 09:22 Dose: 2 puff Nicotine (Nicotine Patch 7 Mg/24 Hr*) 1 patch TRANSDERM DAILY [facility] Last Admin: 06/30/17 08:05 Dose: 1 patch Omeprazole (Prilosec Cap*) 20 mg PO DAILY@0730 [facility] Last Admin: 06/30/17 08:05 Dose: 20 mg Oxycodone/Acetaminophen (Percocet 5/325 Tab*) 1 tab PO Q6H PRN PRN Reason: PAIN Last Admin: 06/29/17 20:17 Dose: 1 tab Pharmacy Profile Note (Nicotine Patch Removal Note*) 1 note PATCH OFF 2100 [facility] Last Admin: 06/29/17 20:20 Dose: 1 note Objective: [] Vital Signs Temp Pulse Resp BP Pulse Ox 98.8 F 90 18 117/60 92 06/30/17 07:38 06/30/17 09:24 06/30/17 09:24 06/30/17 07:38 06/30/17 09:24 A&Ox3, EOMI, MENDOZA, PERRLA, neuro grossly non-focal at this time HRR, S1S2 present, no murmur noted LS with scattered wheeze, slightly labored +BS, abd. soft and non-tender +PP=bilat., scant edema to feet and ankles Back mid-thoracic region with open ulceration, right upper gluteal region with open glister surrounded by several very small pustules and some erythema, non- tender. Gluteal folds with open ulcerations. Laboratory Results - last 24 hr 06/27/17 06/30/17 06/30/17 20:45 05:05 05:05 WBC 2.5 L RBC 2.81 L Hgb 9.3 L Hct 27 L MCV 97 MCH 33 H MCHC 34 RDW 18 H Plt Count 45 L Neut % (Auto) 81.8 Lymph % (Auto) 13.8 L Sully % (Auto) 3.6 Eos % (Auto) 0.5 Baso % (Auto) 0.3 Absolute Neuts (auto) 2.1 Absolute Lymphs (auto) 0.3 L Absolute Monos (auto) 0.1 Absolute Eos (auto) 0 Absolute Basos (auto) 0 Absolute Nucleated RBC 0.02 Nucleated RBC % 0.8 Sodium 135 Potassium 3.4 L Chloride 103 Carbon Dioxide 25 Anion Gap 7 BUN 18 Creatinine 0.57 Est GFR ( Amer) 135.7 Est GFR (Non-Af Amer) 105.5 BUN/Creatinine Ratio 31.6 H Glucose 111 H Calcium 7.9 L Magnesium 1.7 L Total Bilirubin 0.50 AST 60 H ALT 73 H Alkaline Phosphatase 46 Total Protein 4.8 L Albumin 2.2 L Globulin 2.6 Albumin/Globulin Ratio 0.8 L Procalcitonin 0.3 Assessment: []67 yo female with progressive metastatic lung cancer (GASTROENTEROLOGY NURSE mets s/p RT with improvement) s/p 1 cycle Pemetrexed and Avastin admitted with progressive pneumonia following d/c on PO meds. She has had cont.'d fevers despite IV cefepime and was started on clindamycin yesterday. Plan: []1. Pneumonia: fever yesterday afternoon, addition of clindamycin per ID. Will need to be afebrile x24 hrs prior to d/c. Cont. nebulizers. 2. Pancytopenia secondary to chemotherapy: resolving and no longer neutropenic, cont. to monitor counts 3. Sheer wounds to back and buttocks: cont. barrier cream and repositioning 4. Blisters lower back: do not appear to be shingles to this copywriter, will obtain wound culture today 5. Lung Cancer: stage IV, treatment on hold at this time as pt. will need to improve dramatically prior to resumption. She does not feel safe at home alone and has requested SNF @ d/c which I think is very smart. We will re-eval. after she recovers and builds strength. 6. Hypokalemia: resolving
[2017-06-30] MEDS: Albuterol/Ipratropium NEB.SOL* Albuterol 2.5 MG/Ipratropium 0.5 MG 3 ML INH SCH ×2 (13:11→20:03)
[2017-06-30] MEDS: NS 0.9% w/ 40 Meq KCL 1000 ML* 1,000 ML IV SCH ×2 (17:23→21:46)
[2017-06-30] MEDS: oxyCODONE/Acetamin 5/325 MG* TAB PO PRN ×2 (17:57→23:23)
[2017-06-30] MEDS: Nicotine Patch Removal NOTE PATCH OFF SCH (21:46)
[2017-07-01] MEDS: Cefepime(*) 2 GM in NS 0.9% 50 ML* 50 ML IVPB SCH (00:35)
[2017-07-01] MEDS: Albuterol/Ipratropium NEB.SOL* Albuterol 2.5 MG/Ipratropium 0.5 MG 3 ML INH SCH ×2 (01:22→07:24)
[2017-07-01] MEDS: Clindamycin 600 MG IVPREMIX(* 600 MG/50 ML SDV IV SCH (05:26)
[2017-07-01] MEDS: Levothyroxine TAB* 125 MCG TAB PO SCH ×2 (05:30→06:03)
[2017-07-01 06:07] LABS: Hematocrit 25 % (35-47); Hemoglobin 8.7 g/dl (12.0-16.0); Mean Corpuscular HGB Conc 35 g/dl (31-36); Mean Corpuscular Hemoglobin 33 pg (27-31); Mean Corpuscular Volume 96 fL (80-97); Mean Platelet Volume 8 um3 (7.4-10.4); Red Blood Count 2.62 10^6/ul (4.0-5.4); Red Cell Distribution Width 18 % (10.5-15); White Blood Count 3.5 10^3/ul (3.5-10.8)
[2017-07-01 06:08] LABS: Comments Flag Yes
[2017-07-01 06:30] LABS: Calcium 7.9 mg/dL (8.6-10.3); EGFR African American 138.5 (>60); EGFR Non-African American 107.7 (>60); Potassium 3.9 mmol/L (3.5-5.0)
[2017-07-01] MEDS: Mometasone/Formoter 200/5 MDI INH SCH (07:24)
[2017-07-01] MEDS ORDERED: Albuterol/Ipratropium NEB.SOL* Albuterol 2.5 MG/Ipratropium 0.5 MG 3 ML INH PRN (07:35)
[2017-07-01] MEDS: Atorvastatin* 40 MG TAB PO SCH (09:39)
[2017-07-01] MEDS: Ferrous Sulfate TAB* 325 MG PO SCH (09:39)
[2017-07-01] MEDS: Docusate CAP* 100 MG PO SCH (09:40)
[2017-07-01] MEDS: Omeprazole CAP* 20 MG PO SCH (09:40)
[2017-07-01] MEDS: Folic Acid TAB* 1 MG PO SCH (09:40)
[2017-07-01] MEDS: buPROPion SR TAB.SR* 150 MG PO SCH (09:41)
[2017-07-01] MEDS: oxyCODONE/Acetamin 5/325 MG* TAB PO PRN (09:41)
[2017-07-01] MEDS: Metoprolol Succinate XL TAB* 25 MG PO SCH (09:44)
[2017-07-01] MEDS: Aspirin EC Low Dose* 81 MG TAB.EC PO SCH (09:44)
[2017-07-01] MEDS: Magnesium Oxide TAB* 400 MG PO SCH (09:45)
[2017-07-01] MEDS: Nicotine PATCH 7 MG/24 HR* PATCH TRANSDERM SCH (09:47)
[2017-07-01] MEDS: FILGRASTIM-SNDZ* 480 MCG/0.8 ML SYRINGE SUBCUT SCH (09:48)
[2017-07-01] MEDS: Docosanol 10%* CREAM 2 GM TUBE TOPICAL SCH (09:52)
--- NOTE | 2017-07-01 11:17 | DS ---
- Discharge Summary Admission Date: 06/27/17 Discharge Date: 07/01/17 Discharge Diagnosis: 1. Pneumonia: secondary to S.Pneumo and post-obstructive (likley anaerobic) unknown antigen, improving on abx. 2. Metastatic Lung Cancer: therapy on hold d/t severe weakness and pancytopenia 3. Pancytopenia: secondary to chemotherapy, neutrophils improved with neupogen 4. COPD: likely a component of SOB, will cont. inhalers 5. CAD: hold ASA d/t thrombocytopenia, hold statin d/t advanced cancer, cont. metoprolol 6. Weakness: d/c to rehab Discharge Medications: 1. Bupropion SR 150 mg PO Daily 2. Metoprolol XL 25 mg PO Daily 3. Levothyroxine 125 mcg PO qAM 4. Nicotine patch 7mg transdermal q24 hrs 5. Ensure supplemental TID with meals 6. Oxycodone/APAP 5/325 mg PO q6hrs PRN pain 7. Acetaminophen 650 mg PO q6hrs PRN pain/fever 8. Albuterol/Ipratropium 2.5/0.5mg 1 neb inh q4hrs PRN SOB/Wheeze 9. Docustae 100 mg PO daily 10. Folic Acid 1 mg PO daily 11. MagOxide 400 mg daily 12. Dulera 200/5 MDI 2 puff inh BID 13. Clindamycin 300 mg PO TID x14 days 14. Cefuroxime 500 mg PO BID x14 days Hospital Course: Please see admission note for full H&P, however briefly Mrs. Avila well known to our service due to her unfortunate diagnosis of advanced Non-small Cell Lung Cancer (EGRF, BRAF, ROS, ALK, and PDL-1 NEGATIVE) with recent progression in [employer] following approx. 6 mo. off initial therapy. She started treatment with Pemetrexed and Avastin on 06/17/17 following a course of whole brain RT and unfortunately developed a pneumonia as on outpatient. She was admitted on for IV Levaquin (not neutropenic at the time without fevers) and d/cd on following improvement on PO Levaquin. Unfortunately within 24 hours she returned to the ER with severe weakness and fevers. She was admitted by the hospitalist team and started on Cefepime and Vancomycin. Work-up included cultures and urine for S.Pneumo and Legionella. Her cultures returned negative , however she had a positive urine S.Pneumo Antigen and Vancomycin was ultimately d/cd. On admission she had pancytopenia secondary to chemotherapy and cont.d to have fevers. On 06/29 she was started on Neupogen and ID was consulted. Dr. Boyle saw her that day and felt while the Cefepime was good coverage for S.Pneumo her underlying lung cancer had created a post obstructive pneumonia and he added Clindamycin IV for anaerobic coverage. After approximately 24 hours Mrs. Avila has not had further fevers and at this time is felt stable for d/c. During her stay she received PT evaluation and has agreed she is not safe for d/c home independently and will be d/cd for sub- acute rehab @ [facility]. She will be d/cd to rehab with PO abx (Ceftin and Clindamycin) for 2 weeks. She remains SOB and is using supplemental O2, however has maintained good O2 SATs with stabilized lab values. While reviewing the plan of care I discussed her advanced disease and that with treatment on hold d/t severe weakness and cont.d thrombocytopenia I felt it would be appropriate to consult with the palliative/hospice team as an outpatient. She understands that not pursuing further treatment is an option and is appreciative of the consult. Plan of care was also discussed with the patients cousin Ana, per the Mrs. Sommer request. She will follow-up with the oncology team on 07/14/17. >40 min spent with >50% face to face counseling
[2017-07-01 11:59] VITALS: BP 127/66
== END 2017-07-01 13:10 | DRG 193 ==
LOC: ED 20:02 → MED 21:34
PROVIDERS: ADMIT Internal Medicine; ATTEND Internal Medicine Hematology & Oncology
PROC: 02HV33Z Insertion of Infusion Device into Superior Vena Cava, Percutaneous Approach (ICD-10-PCS; principal; 2017-06-30)
DX: J13 Pneumonia due to Streptococcus pneumoniae (principal); D61.810 Antineoplastic chemotherapy induced pancytopenia; C79.31 Secondary malignant neoplasm of brain; C34.90 Malignant neoplasm of unspecified part of unspecified bronchus or lung; I11.9 Hypertensive heart disease without heart failure; D69.6 Thrombocytopenia, unspecified; J44.9 Chronic obstructive pulmonary disease, unspecified; I25.10 Atherosclerotic heart disease of native coronary artery without angina pectoris; K21.9 Gastro-esophageal reflux disease without esophagitis; E78.5 Hyperlipidemia, unspecified; E03.9 Hypothyroidism, unspecified; M54.9 Dorsalgia, unspecified; K90.0 Celiac disease; F10.21 Alcohol dependence, in remission; F17.210 Nicotine dependence, cigarettes, uncomplicated; F12.90 Cannabis use, unspecified, uncomplicated; Z99.81 Dependence on supplemental oxygen; Z95.5 Presence of coronary angioplasty implant and graft; Z79.82 Long term (current) use of aspirin; Z79.899 Other long term (current) drug therapy; Z88.0 Allergy status to penicillin; Z82.49 Family history of ischemic heart disease and other diseases of the circulatory system; Z80.1 Family history of malignant neoplasm of trachea, bronchus and lung; Z80.0 Family history of malignant neoplasm of digestive organs
CPT/HCPCS: 36415; 71020; 80048; 80053; 81003; 81015; 82728; 83605; 83735; 84145; 84484; 85025; 85027; 85610; 85730; 86140; 87040; 87070; 87086; 87205; 87899; 93005; 94640; 94760; 99233; A9270-GY; J0692; J3370; Q5101 ZA

== ENCOUNTER 2017-08-28 07:54 | Emergency (ER) | payer MEDICARE, OTHER ==
[2017-08-28] MEDS ORDERED: NS 0.9% 1000 ML* 1,000 ML IV ONE (08:00)
[2017-08-28 08:05] VITALS: BP 94/51
[2017-08-28 08:59] LABS: Add Diff/Slide Review? Manual Diff Added; Comments Flag Yes; Hematocrit 27 % (35-47); Hemoglobin 8.9 g/dl (12.0-16.0); Mean Corpuscular HGB Conc 33 g/dl (31-36); Mean Corpuscular Hemoglobin 32 pg (27-31); Mean Corpuscular Volume 99 fL (80-97); Mean Platelet Volume 9 um3 (7.4-10.4); Red Blood Count 2.75 10^6/ul (4.0-5.4); Red Cell Distribution Width 21 % (10.5-15); White Blood Count 4.6 10^3/ul (3.5-10.8)
[2017-08-28 09:05] LABS: ALT 33 U/L (7-52); AST 49 U/L (13-39); Albumin 2.7 g/dL (3.2-5.2); Alkaline Phosphatase 162 U/L (34-104); Anion Gap 9 mmol/L (2-11); BUN/Creatinine Ratio 23.9 (8-20); Blood Urea Nitrogen 21 mg/dL (6-24); C Reactive Protein 298.36 mg/L (< 5.00); CO2 Carbon Dioxide 28 mmol/L (22-32); Calcium 9.2 mg/dL (8.6-10.3); Chloride 95 mmol/L (101-111); EGFR African American 82.2 (>60); EGFR Non-African American 63.9 (>60); Globulin 3.9 g/dL (2-4); Glucose 89 mg/dL (70-100); Lipase < 10 U/L (11.0-82.0); Potassium 3.9 mmol/L (3.5-5.0); Sodium 132 mmol/L (133-145); Total Protein 6.6 g/dL (6.4-8.9)
[2017-08-28 09:29] LABS: Immature Granulocytes 3 % (0-9); Neutrophil % 89 % (38-83)
[2017-08-28 09:30] LABS: Add Path Review? YES; Macrocytosis 1+; Tear Drop Cells 1+; Toxic Granulation 1+
--- NOTE | 2017-08-28 09:43 | RAD ---
Indication: Constipation for 4 days. Lung carcinoma. Comparison: May 14, 2017 PET/CT. Technique: Supine and upright views of the abdomen. Report: No radiographic evidence for free air. Unremarkable bowel gas pattern. Moderate stool in the colon without significant rectal distension. Bowel anastomosis visualized at the level of the distal sigmoid colon. Costochondral calcifications noted. No suspicious calcifications or mass effect evident. Unremarkable soft tissue contours. IMPRESSION: Negative for free air. Negative for bowel obstruction or mass effect. Moderate stool in the colon without significant rectal distension.
[2017-08-28] MEDS ORDERED: Polyethylene Glycol 3350* 17 GM PACKET PO PRN (09:59)
[2017-08-28] MEDS ORDERED: Magnesium CITRATE* 300 ML BTL PO ONE (10:00)
[2017-08-28] MEDS ORDERED: Ondansetron INJ* 2 MG/ML VIAL IV ONE (10:00)
[2017-08-28] MEDS ORDERED: Polyethylene Glycol 3350* 17 GM PACKET ONE (10:10)
[2017-08-28] MEDS ORDERED: Sodium Phosphate ADULT ENEMA* 118 ml bottle PR ONE (10:25)
[2017-08-28] MEDS ORDERED: Sodium Phosphate ADULT ENEMA* 118 ml bottle ONE (10:26)
--- NOTE | 2017-08-29 08:32 | ED ---
Abhay Ashraf Angela, scribed for Cody Arciniega MD on 08/28/17 at 0804 . GI/ HPI - HPI Summary HPI Summary: This pt is a 67 y/o female, with lung CA metastasized to the brain and lymph nodes, presenting to [facility] c/o bloody stools and rectal pain today. Pt reports that for the las couple of day she has been experiencing, what she thinks bowel blockage. She states that today she had a little amount of bowel movement along with blood. Pt notes her last normal bowel movement was 4 days ago. She reports she doesnt usually suffer from constipation. Per EMS her BP is 96/65, which she states she has always had low BP. Pt currently takes oxycodone for the her chronic back pain. PMHx: diverticulitis. - History of Current Complaint Chief Complaint: EDGeneral Time Seen by Provider: 08/28/17 08:00 Stated Complaint: BLOOD IN STOOL Hx Obtained From: Patient - Additional Pertinent History Primary Care Physician: GOLD - Allergy/Home Medications Allergies/Adverse Reactions: Allergies Allergy/AdvReac Type Severity Reaction Status Date / Time Penicillins AdvReac Intermediate Yeast Verified 06/21/17 20:14 infection PMH/Surg Hx/FS Hx/Imm Hx Endocrine/Hematology History: Reports: Hx Thyroid Disease Denies: Hx Anticoagulant Therapy, Hx Blood Disorders, Hx Blood Transfusions, Hx Bone Marrow Disease, Hx Diabetes, Hx Systemic Lupus Erythematosus, Hx Sickle Cell Disease, Hx Anemia, Hx Unexplained Bleeding Cardiovascular History: Reports: Hx Aneurysm, Hx Angina, Hx Coronary Artery Disease, Hx Hypercholesterolemia, Hx Hypertension - for tachycardia, Hx Myocardial Infarction, Hx Peripheral Vascular Disease - had stent in right leg 2012 Denies: Hx Angioplasty, Hx Auto Implanted Cardiovert Defib, Hx Cardiac Arrest , Hx Cardiomegaly, Hx Congenital Heart Disease, Hx Congestive Heart Failure, Hx Deep Vein Thrombosis, Hx Pacemaker/ICD, Hx Valvular Heart Disease Comment Only: Other Cardiovascular Problems/Disorders - hx cardiac stents Respiratory History: Reports: Hx Chronic Obstructive Pulmonary Disease (COPD), Other Respiratory Problems/Disorders - COPD, lung cancer 2015 Denies: Hx Asthma GI History: Reports: Hx Diverticulosis, Hx Gastroesophageal Reflux Disease, Hx Obstructive Bowel, Hx Ileostomy, Other GI Disorders - DIVERTICULITIS AND ABDOMINAL HERNIAS Denies: Hx Cirrhosis, Hx Crohn's Disease, Hx Gall Bladder Disease, Hx Hiatal Hernia, Hx Irritable Bowel, Hx Jaundice, Hx Pyloric Stenosis History: Reports: Other Problems/Disorders - UTI RECENTLY - RESOLVED Denies: Hx Acute Renal Failure, Hx Benign Prostatic Hyperplasia, Hx Chronic Renal Failure, Hx Dialysis, Hx Kidney Infection, Hx Kidney Stones, Hx Renal Disease Musculoskeletal History: Reports: Hx Arthritis - IN BACK, Hx Back Problems, Hx Osteoporosis, Other Musculoskeletal History - CORNER OF VERTEBRE BROKEN FROM A FALL Sensory History: Reports: Hx Contacts or Glasses, Hx Glaucoma - HAD LASER SURGERY 2008, Hx Vision Problem - Glasses Denies: Hx Cataracts, Hx Eye Injury, Hx Eye Prosthesis, Hx Macular Degeneration, Hx Deafness, Hx Hearing Aid, Hx Hearing Problem, Other Sensory Impairments Opthamlomology History: Reports: Hx Contacts or Glasses, Hx Glaucoma - HAD LASER SURGERY 2008, Hx Vision Problem - Glasses Denies: Hx Cataracts, Hx Eye Injury, Hx Eye Prosthesis, Hx Macular Degeneration, Other Sensory Impairments Neurological History: Reports: Other Neuro Impairments/Disorders - aneurysm repair brain 2009 Denies: Hx Dementia, Hx Developmental Delay, Hx Headaches, Hx Migraine, Hx Seizures, Hx Spinal Cord Injury, Hx Transient Ischemic Attacks (TIA) Psychiatric History: Reports: Hx Depression, Hx Substance Abuse - synthroid. Denies: Hx Panic Disorder - Cancer History Cancer Type, Location and Year: BRAIN/LUNG CA Hx Chemotherapy: No Hx Radiation Therapy: No - Surgical History Surgery Procedure, Year, and Place: aneurysm repair brain(info in pacs 03/19 mri safe upto 3.0T) , stenting of RLE for claudication Cardiac stent 2011 ( MULTI- LINK VISION COLBAL CHROMIUM BUSTOS - SAFE TO 3T DEBRA UNDER 2.0 W/KG);. colon surgery x 2 with ilieostomy & reversal. d&c, angioplasty to femoral, LASER SURGERY BILAT EYES FOR GLAUCOMA. BILATERAL CATARACTS-2017 Hx Anesthesia Reactions: No Infectious Disease History: Reports: Hx Shingles Denies: Hx Hepatitis - Family History Known Family History: Positive: Other - pos: Breast CA - Social History Alcohol Use: None Hx Substance Use: Yes Substance Use Type: Reports: Marijuana Substance Use Comment - Amount & Last Used: reports uses marijuana every other day Hx Tobacco Use: Yes Smoking Status (MU): Former Smoker Type: Cigarettes Amount Used/How Often: 1/2 PPD Length of Time of Smoking/Using Tobacco: 40 YEARS - quit 06/19/2017 Have You Smoked in the Last Year: Yes Review of Systems Negative: Fever, Chills Eyes: Negative ENT: Negative Cardiovascular: Negative Negative: Shortness Of Breath Positive: Other - constipation, bloody stools, rectal pain. Negative: Abdominal Pain, Vomiting Negative: Headache, Weakness, Numbness All Other Systems Reviewed And Are Negative: Yes Physical Exam - Summary Physical Exam Summary: VITAL SIGNS: Reviewed. GENERAL: Patient is a well-developed female who is lying comfortable in the stretcher. Patient is not in any acute respiratory distress. HEAD AND FACE: No signs of trauma. No ecchymosis, hematomas or skull depressions. No sinus tenderness. EYES: PERRLA, EOMI x 2, No injected conjunctiva, no nystagmus. EARS: Hearing grossly intact. Ear canals and tympanic membranes are within normal limits. MOUTH: Oropharynx within normal limits. NECK: Supple, trachea is midline, no adenopathy, no JVD, no carotid bruit, no c- spine tenderness, neck with full ROM. CHEST: Symmetric, no tenderness at palpation LUNGS: Clear to auscultation bilaterally. No wheezing or crackles. CVS: Regular rate and rhythm, S1 and S2 present, no murmurs or gallops appreciated. ABDOMEN: Soft, non-tender. No signs of distention. No rebound no guarding, and no masses palpated. There are decreased bowel sounds. Rectal exam: pt has an external hemorrhoid but there is no gross blood or melena. EXTREMITIES: FROM in all major joints, no edema, no cyanosis or clubbing. NEURO: Alert and oriented x 3. No acute neurological deficits. Speech is normal and follows commands. SKIN: Dry and warm Triage Information Reviewed: Yes Vital Signs On Initial Exam: Initial Vitals Temp Pulse Resp BP Pulse Ox 97.9 F 90 20 94/51 90 08/28/17 08:00 08/28/17 08:00 08/28/17 08:00 08/28/17 08:00 08/28/17 08:00 Vital Signs Reviewed: Yes Diagnostics - Vital Signs Vital Signs Temp Pulse Resp BP Pulse Ox 08/28/17 10:00 87 93 08/28/17 09:00 83 18 91 08/28/17 08:05 88 22 90 08/28/17 08:03 94/51 08/28/17 08:00 97.9 F 90 20 94/51 90 - Laboratory Lab Results: Lab Results 08/28/17 08/28/17 08/28/17 Range/Units 08:32 08:32 08:32 WBC 4.6 (3.5-10.8) 10^3/ul RBC 2.75 L (4.0-5.4) 10^6/ul Hgb 8.9 L (12.0-16.0) g/dl Hct 27 L (35-47) % MCV 99 H (80-97) fL MCH 32 H (27-31) pg MCHC 33 (31-36) g/dl RDW 21 H (10.5-15) % Plt Count 114 L (150-450) 10^3/ul MPV 9 (7.4-10.4) um3 Immature Gran % (Auto) 3 (0-9) % Neutrophils % 89 H (38-83) % Band Neutrophils % 3 (0-8) % Lymphocytes % 5 L (25-47) % Monocytes % 3 (0-13) % Toxic Granulation 1+ Normal RBC Morphology Not Reportable Macrocytosis 1+ Tear Drop Cells 1+ Hem Pathologist Commnt Sodium 132 L (133-145) mmol/L Potassium 3.9 (3.5-5.0) mmol/L Chloride 95 L (101-111) mmol/L Carbon Dioxide 28 (22-32) mmol/L Anion Gap 9 (2-11) mmol/L BUN 21 (6-24) mg/dL Creatinine 0.88 (0.51-0.95) mg/dL Est GFR ( Amer) 82.2 (>60) Est GFR (Non-Af Amer) 63.9 (>60) BUN/Creatinine Ratio 23.9 H (8-20) Glucose 89 (70-100) mg/dL Calcium 9.2 (8.6-10.3) mg/dL Total Bilirubin 0.70 (0.2-1.0) mg/dL AST 49 H (13-39) U/L ALT 33 (7-52) U/L Alkaline Phosphatase 162 H (34-104) U/L C-Reactive Protein 298.36 H (< 5.00) mg/L B-Natriuretic Peptide 279 H ( - 100) pg/mL Total Protein 6.6 (6.4-8.9) g/dL Albumin 2.7 L (3.2-5.2) g/dL Globulin 3.9 (2-4) g/dL Albumin/Globulin Ratio 0.7 L (1-3) Lipase < 10 L (11.0-82.0) U/L Result Diagrams: 08/28/17 08:32 08/28/17 08:32 Lab Statement: Any lab studies that have been ordered have been reviewed, and results considered in the medical decision making process. - Radiology Abdomen XR Xray Interpretation: Positive (See Comments) - IMPRESSION: Negative for free air. Negative for bowel obstruction or mass effect. Moderate stool in the colon without significant rectal distension. ED physician has reviewed this radiology report and agrees. Radiology Interpretation Completed By: Radiologist Re-Evaluation - Re-Evaluation First Eval Re-Evaluation Time: 10:05 Comment: I reviewed the XR results with the pt. GIGU Course/Dx - Course Assessment/Plan: This pt is a 67 y/o female, with lung CA metastasized to the brain and lymph nodes, presenting to [facility] c/o bloody stools and rectal pain today. Pt reports that for the las couple of day she has been experiencing, what she thinks bowel blockage. She states that today she had a little amount of bowel movement along with blood. Pt notes her last normal bowel movement was 4 days ago. She reports she doesnt usually suffer from constipation. Per EMS her BP is 96/65, which she states she has always had low BP. Pt currently takes oxycodone for the her chronic back pain. PMHx: diverticulitis. Test results show slight anemia, at her baseline. CRP is 298, BNP is 279. Abdomen XR shows negative for free air. Negative for bowel obstruction or mass effect. Moderate stool in the colon without significant rectal distension. In the ED course, the pt was given magnesium citrate, lactulose, miralax, and fleet enema. I discussed the test results and findings with the pt and reassured the pt did not have a bowel obstruction. She will be given prescriptions for stool softeners. Pt will be discharged to home with follow up from her PCP. She is comfortable with being discharged and will continue to take these medications. Pt is hemodynamically stable, alert and oriented x3. - Diagnoses Differential Diagnoses - Female: Adverse Drug Effect, Bowel Obstruction, Constipation, Dehydration, Hemorrhoids Provider Diagnoses: Constipation Discharge - Discharge Plan Condition: Stable Disposition: HOME Prescriptions: Magnesium CITRATE* [Citrate of Magnesia*] 150 ml PO SEE INSTRUCTIONS #1 btl Polyethylene Glycol 3350* [Miralax*] 17 gm PO DAILY #12 packet Sodium Phosphate ADULT ENEMA* [Fleet Enema*] 1 enema NV BEDTIME PRN #1 btl PRN Reason: Constipation Patient Education Materials: Constipation (ED) Referrals: Marguerite Shook MD [Primary Care Provider] - Additional Instructions: Please follow up with your primary care provider. The documentation as recorded by the Abhay castellanos Angela accurately reflects the service I personally performed and the decisions made by Demian rose Walter, MD.
--- NOTE | 2017-08-29 14:12 | PN ---
Progress Note - Progress Note Date of Service: 08/28/17 Note: stool occult blood result is positive
== END 2017-08-28 11:06 | disposition home or self-care (01) ==
LOC: ED 07:54
DX: K59.00 Constipation, unspecified (principal); K62.89 Other specified diseases of anus and rectum; Z87.891 Personal history of nicotine dependence
CPT/HCPCS: 36415; 74020; 80053; 82272; 83690; 83880; 85025; 85060; 86140; 96374; 99283; A9270-GY; J2405

== ENCOUNTER 2017-10-28 13:49 | Inpatient (IN) | payer MEDICAID, MEDICARE, OTHER ==
[2017-10-28] MEDS ORDERED: Ondansetron INJ* 2 MG/ML VIAL IV ONE (14:08)
[2017-10-28] MEDS ORDERED: Acetaminophen TAB* 325 MG PO ONE (14:08)
[2017-10-28 14:22] LABS: Hemoglobin 11.9 g/dl (12.0-16.0); White Blood Count 0.7 10^3/ul (3.5-10.8)
[2017-10-28 14:25] LABS: Add Diff/Slide Review? Manual Diff Added; Comments Flag Yes; Hematocrit 36 % (35-47); Mean Corpuscular HGB Conc 33 g/dl (31-36); Mean Corpuscular Hemoglobin 33 pg (27-31); Mean Corpuscular Volume 98 fL (80-97); Mean Platelet Volume 9 um3 (7.4-10.4); Red Blood Count 3.65 10^6/ul (4.0-5.4)
[2017-10-28 14:26] LABS: Red Cell Distribution Width 22 % (10.5-15)
[2017-10-28] MEDS: NS 0.9% 1000 ML*IV.FLUID IV ONE ×2 (14:33→15:40)
[2017-10-28 14:38] LABS: Albumin 2.7 g/dL (3.2-5.2); BUN/Creatinine Ratio 30.1 (8-20); C Reactive Protein 343.31 mg/L (< 5.00); Calcium 8.9 mg/dL (8.6-10.3); EGFR African American 87.9 (>60); EGFR Non-African American 68.4 (>60); Globulin 4.3 g/dL (2-4); Total Bilirubin 0.9 mg/dL (0.2-1.0)
[2017-10-28 14:40] LABS: Troponin I 0.02 ng/mL (<0.04)
--- NOTE | 2017-10-28 14:53 | RAD ---
HISTORY: Fever, cough COMPARISONS: January 06, 2017, CT dated September 01, 2017 VIEWS: 1: frontal portable view of the chest at 3:15 PM FINDINGS: LINES AND TUBES: A right-sided chest port is noted from a subclavian approach with the tip overlying the cavoatrial junction. CARDIOMEDIASTINAL SILHOUETTE: The cardiomediastinal silhouette is normal for portable technique. PLEURA: There is right apical pleural thickening. LUNG PARENCHYMA: There is patchy opacification of the right upper lung corresponding to the mass noted on previous PET/CT. There is hyperinflation. ABDOMEN: The upper abdomen is clear. There is no subphrenic gas. BONES AND SOFT TISSUES: No bone or soft tissue abnormalities are noted. IMPRESSION: PERSISTENT RIGHT UPPER LUNG MASS. LINES AND TUBES ABOVE.
[2017-10-28] MEDS ORDERED: Cefepime(*) 2 GM in NS 0.9% 50 ML* 50 ML IVPB ONE (14:56)
[2017-10-28 15:17] LABS: Add Path Review? YES; Immature Granulocytes 5 % (0-9); Metamyelocytes % 1 % (0-2); Neutrophil % 48 % (38-83); RBC Morphology Normal (Normal); Reactive Lymph % 8 % (0-6)
[2017-10-28] MEDS ORDERED: Benzonatate CAP* 100 MG PO ONE (15:38)
[2017-10-28] MEDS ORDERED: Cefepime 2 GM in Dextrose(*) 2 GM/50 ML BAG IV ONE (16:00)
[2017-10-28] MEDS ORDERED: Albuterol HFA INHALER* 8 gm MDI INH PRN (17:54)
[2017-10-28] MEDS ORDERED: Prochlorperazine TAB* 10 MG PO PRN (17:54)
[2017-10-28] MEDS ORDERED: Ondansetron TAB* 4 MG PO PRN (17:54)
[2017-10-28] MEDS ORDERED: Benzonatate CAP* 100 MG PO PRN (17:54)
[2017-10-28] MEDS ORDERED: Polyethylene Glycol 3350* 17 GM PACKET PO PRN (17:54)
--- NOTE | 2017-10-28 18:10 | ED ---
Yang Ashraf Julia, scribed for Felix Burden MD on 10/28/17 at 1405 . Complex/Multi-Sys Presentation - HPI Summary HPI Summary: This patient is a 67 year old F BIBA to [facility] with a chief complaint of generalized illness worsening today. This patient has lung and brain cancer and Dr. Avendaño is her oncologist. The patient rates the pain 0/10 in severity. Symptoms aggravated by nothing. Symptoms alleviated by nothing. Patient reports fever, chills, cough, and LE swelling. Patient denies abdominal or calf pain. EMS reports that patient has not been eating or taking medications for the past few days. - History Of Current Complaint Chief Complaint: EDGeneral Time Seen by Provider: 10/28/17 13:52 Hx Obtained From: Patient, EMS Onset/Duration: Gradual Onset, Still Present Timing: Constant Aggravating Factor(s): nothing Alleviating Factor(s): nothing Associated Signs And Symptoms: Positive: Other - fever, chills, cough, and LE swelling - Allergies/Home Medications Allergies/Adverse Reactions: Allergies Allergy/AdvReac Type Severity Reaction Status Date / Time Penicillins AdvReac Intermediate Yeast Verified 10/23/17 11:00 infection Home Medications: Home Medications Albuterol inh POWDER (NF) [Proair Respiclick] 2 puff INH Q4HR PRN 10/28/17 [ History Confirmed 10/28/17] Albuterol inh POWDER (NF) [Proair Respiclick] 2 puff INH QID PRN 10/28/17 [ History Confirmed 10/28/17] Benzonatate CAP* [Tessalon 100 MG CAP*] 100 mg PO Q6HR PRN 10/28/17 [History Confirmed 10/28/17] Folic Acid 400 mcg PO DAILY 10/28/17 [History Confirmed 10/28/17] Levothyroxine TAB* [Synthroid TAB*] 50 mcg PO DAILY 10/28/17 [History Confirmed 10/28/17] Nicotine PATCH 14 MG/24 HR* 14 mg TRANSDERM DAILY 10/28/17 [History Confirmed ] Ondansetron TAB* [Zofran 4 MG Tab*] 4 mg PO Q4HR PRN 10/28/17 [History Confirmed 10/28/17] Polyethylene Glycol 3350* [Miralax*] 17 gm PO BEDTIME PRN 10/28/17 [History Confirmed 10/28/17] Prochlorperazine TAB* [Compazine Tab*] 10 mg PO QID PRN 10/28/17 [History Confirmed 10/28/17] PMH/Surg Hx/FS Hx/Imm Hx Endocrine/Hematology History: Reports: Hx Thyroid Disease Denies: Hx Anticoagulant Therapy, Hx Blood Disorders, Hx Blood Transfusions, Hx Bone Marrow Disease, Hx Diabetes, Hx Systemic Lupus Erythematosus, Hx Sickle Cell Disease, Hx Anemia, Hx Unexplained Bleeding Cardiovascular History: Reports: Hx Aneurysm, Hx Angina, Hx Coronary Artery Disease, Hx Hypercholesterolemia, Hx Hypertension - for tachycardia, Hx Myocardial Infarction, Hx Peripheral Vascular Disease - had stent in right leg 2012 Denies: Hx Angioplasty, Hx Auto Implanted Cardiovert Defib, Hx Cardiac Arrest , Hx Cardiomegaly, Hx Congenital Heart Disease, Hx Congestive Heart Failure, Hx Deep Vein Thrombosis, Hx Pacemaker/ICD, Hx Valvular Heart Disease Comment Only: Other Cardiovascular Problems/Disorders - hx cardiac stents Respiratory History: Reports: Hx Chronic Obstructive Pulmonary Disease (COPD), Other Respiratory Problems/Disorders - COPD, lung cancer 2015 Denies: Hx Asthma GI History: Reports: Hx Diverticulosis, Hx Gastroesophageal Reflux Disease, Hx Obstructive Bowel, Hx Ileostomy, Other GI Disorders - DIVERTICULITIS AND ABDOMINAL HERNIAS Denies: Hx Cirrhosis, Hx Crohn's Disease, Hx Gall Bladder Disease, Hx Hiatal Hernia, Hx Irritable Bowel, Hx Jaundice, Hx Pyloric Stenosis History: Reports: Other Problems/Disorders - UTI RECENTLY - RESOLVED Denies: Hx Acute Renal Failure, Hx Benign Prostatic Hyperplasia, Hx Chronic Renal Failure, Hx Dialysis, Hx Kidney Infection, Hx Kidney Stones, Hx Renal Disease Musculoskeletal History: Reports: Hx Arthritis - IN BACK, Hx Back Problems, Hx Osteoporosis, Other Musculoskeletal History - CORNER OF VERTEBRE BROKEN FROM A FALL Sensory History: Reports: Hx Contacts or Glasses, Hx Glaucoma - HAD LASER SURGERY 2008, Hx Vision Problem - Glasses Denies: Hx Cataracts, Hx Eye Injury, Hx Eye Prosthesis, Hx Macular Degeneration, Hx Deafness, Hx Hearing Aid, Hx Hearing Problem, Other Sensory Impairments Opthamlomology History: Reports: Hx Contacts or Glasses, Hx Glaucoma - HAD LASER SURGERY 2008, Hx Vision Problem - Glasses Denies: Hx Cataracts, Hx Eye Injury, Hx Eye Prosthesis, Hx Macular Degeneration, Other Sensory Impairments Neurological History: Reports: Other Neuro Impairments/Disorders - aneurysm repair brain 2009 Denies: Hx Dementia, Hx Developmental Delay, Hx Headaches, Hx Migraine, Hx Seizures, Hx Spinal Cord Injury, Hx Transient Ischemic Attacks (TIA) Psychiatric History: Reports: Hx Depression, Hx Substance Abuse - synthroid. Denies: Hx Panic Disorder - Cancer History Cancer Type, Location and Year: BRAIN/LUNG CA Hx Chemotherapy: No Hx Radiation Therapy: No - Surgical History Surgery Procedure, Year, and Place: aneurysm repair brain(info in pacs 03/19 mri safe upto 3.0T) , stenting of RLE for claudication Cardiac stent 2011 ( MULTI- LINK VISION COLBAL CHROMIUM BUSTOS - SAFE TO 3T DEBRA UNDER 2.0 W/KG);. colon surgery x 2 with ilieostomy & reversal. d&c, angioplasty to femoral, LASER SURGERY BILAT EYES FOR GLAUCOMA. BILATERAL CATARACTS-2016 Hx Anesthesia Reactions: No Infectious Disease History: Yes Infectious Disease History: Reports: Hx Shingles Denies: Hx Hepatitis, Traveled Outside the [place] in Last 30 Days - Family History Known Family History: Positive: Other - Positive: breast CA - Social History Alcohol Use: None Hx Substance Use: No Substance Use Type: Reports: None Substance Use Comment - Amount & Last Used: reports uses marijuana every other day Hx Tobacco Use: Yes Smoking Status (MU): Light Every Day Tobacco Smoker Type: Cigarettes Amount Used/How Often: 1/2 PPD Length of Time of Smoking/Using Tobacco: 40 YEARS - quit 06/19/2017 Have You Smoked in the Last Year: Yes Review of Systems Positive: Fever, Chills Positive: Cough Negative: Abdominal Pain Positive: Other - LE swelling but denies pain All Other Systems Reviewed And Are Negative: Yes Physical Exam - Summary Physical Exam Summary: General: mildly ill appearance, no pain distress Skin: warm, pale, dry, dry mucous membrane Head: normal Eyes: EOMI, ANGELA ENT: normal Neck: supple, nontender Respiratory: Rhonchi bilaterally, breath sounds present Cardiovascular: Regular rate, Tachycardic Abdomen: soft, nontender Bowel: present Musculoskeletal: normal, strength/ROM intact Neurological: normal, sensory/motor intact, A&O x3 Psychological: affect/mood appropriate Triage Information Reviewed: Yes Vital Signs On Initial Exam: Initial Vitals Temp Pulse Resp BP Pulse Ox 101.3 F 101 20 118/56 97 10/28/17 13:51 10/28/17 13:51 10/28/17 13:51 10/28/17 13:51 10/28/17 13:51 Vital Signs Reviewed: Yes Diagnostics - Vital Signs Vital Signs Temp Pulse Resp BP Pulse Ox 10/28/17 13:51 101.3 F 101 20 118/56 97 - Laboratory Lab Results: Lab Results 10/28/17 10/28/17 10/28/17 Range/Units 14:10 14:10 14:10 WBC (3.5-10.8) 10^3/ul RBC (4.0-5.4) 10^6/ul Hgb (12.0-16.0) g/dl Hct (35-47) % MCV (80-97) fL MCH (27-31) pg MCHC (31-36) g/dl RDW (10.5-15) % Plt Count (150-450) 10^3/ul MPV (7.4-10.4) um3 Absolute Neuts (auto) (1.5-7.7) 10^3/ul Absolute Lymphs (auto) (1.0-4.8) 10^3/ul Absolute Monos (auto) (0-0.8) 10^3/ul Absolute Eos (auto) (0-0.6) 10^3/ul Absolute Basos (auto) (0-0.2) 10^3/ul Absolute Nucleated RBC 10^3/ul Immature Gran % (0-9) % Neutrophils % (38-83) % Band Neutrophils % (0-8) % Lymphocytes % (25-47) % Reactive Lymphs % (0-6) % Monocytes % (0-13) % Metamyelocytes % (0-2) % Normal RBC Morphology (Normal) Hem Pathologist Commnt INR (Anticoag Therapy) 1.33 H (0.77-1.02) APTT 55.5 H (26.0-36.3) seconds Sodium 138 (133-145) mmol/L Potassium 3.0 L (3.5-5.0) mmol/L Chloride 98 L (101-111) mmol/L Carbon Dioxide 32 (22-32) mmol/L Anion Gap 8 (2-11) mmol/L BUN 25 H (6-24) mg/dL Creatinine 0.83 (0.51-0.95) mg/dL Est GFR ( Amer) 87.9 (>60) Est GFR (Non-Af Amer) 68.4 (>60) BUN/Creatinine Ratio 30.1 H (8-20) Glucose 117 H (70-100) mg/dL Lactic Acid (0.5-2.0) mmol/L Calcium 8.9 (8.6-10.3) mg/dL Total Bilirubin 0.90 (0.2-1.0) mg/dL AST 44 H (13-39) U/L ALT 15 (7-52) U/L Alkaline Phosphatase 101 (34-104) U/L Total Creatine Kinase 124 (10-223) U/L Troponin I 0.02 (<0.04) ng/mL C-Reactive Protein 343.31 H (< 5.00) mg/L B-Natriuretic Peptide 84 ( - 100) pg/mL Total Protein 7.0 (6.4-8.9) g/dL Albumin 2.7 L (3.2-5.2) g/dL Globulin 4.3 H (2-4) g/dL Albumin/Globulin Ratio 0.6 L (1-3) Influenza A (Rapid) (Negative) Influenza B (Rapid) (Negative) 10/28/17 10/28/17 10/28/17 Range/Units 14:10 14:10 16:09 WBC 0.7 L (3.5-10.8) 10^3/ul RBC 3.65 L (4.0-5.4) 10^6/ul Hgb 11.9 L (12.0-16.0) g/dl Hct 36 (35-47) % MCV 98 H (80-97) fL MCH 33 H (27-31) pg MCHC 33 (31-36) g/dl RDW 22 H (10.5-15) % Plt Count 20 L (150-450) 10^3/ul MPV 9 (7.4-10.4) um3 Absolute Neuts (auto) 0.4 L* (1.5-7.7) 10^3/ul Absolute Lymphs (auto) 0.3 L (1.0-4.8) 10^3/ul Absolute Monos (auto) 0 (0-0.8) 10^3/ul Absolute Eos (auto) 0 (0-0.6) 10^3/ul Absolute Basos (auto) 0 (0-0.2) 10^3/ul Absolute Nucleated RBC 0 10^3/ul Immature Gran % 5 (0-9) % Neutrophils % 48 (38-83) % Band Neutrophils % 4 (0-8) % Lymphocytes % 33 (25-47) % Reactive Lymphs % 8 H D (0-6) % Monocytes % 6 (0-13) % Metamyelocytes % 1 (0-2) % Normal RBC Morphology Normal (Normal) Hem Pathologist Commnt Pending INR (Anticoag Therapy) (0.77-1.02) APTT (26.0-36.3) seconds Sodium (133-145) mmol/L Potassium (3.5-5.0) mmol/L Chloride (101-111) mmol/L Carbon Dioxide (22-32) mmol/L Anion Gap (2-11) mmol/L BUN (6-24) mg/dL Creatinine (0.51-0.95) mg/dL Est GFR ( Amer) (>60) Est GFR (Non-Af Amer) (>60) BUN/Creatinine Ratio (8-20) Glucose (70-100) mg/dL Lactic Acid 1.3 (0.5-2.0) mmol/L Calcium (8.6-10.3) mg/dL Total Bilirubin (0.2-1.0) mg/dL AST (13-39) U/L ALT (7-52) U/L Alkaline Phosphatase (34-104) U/L Total Creatine Kinase (10-223) U/L Troponin I (<0.04) ng/mL C-Reactive Protein (< 5.00) mg/L B-Natriuretic Peptide ( - 100) pg/mL Total Protein (6.4-8.9) g/dL Albumin (3.2-5.2) g/dL Globulin (2-4) g/dL Albumin/Globulin Ratio (1-3) Influenza A (Rapid) Positive H (Negative) Influenza B (Rapid) Negative (Negative) Result Diagrams: 10/28/17 14:10 10/28/17 14:10 Lab Statement: Any lab studies that have been ordered have been reviewed, and results considered in the medical decision making process. - Radiology Chest XR Radiology Interpretation Completed By: Radiologist - PERSISTENT RIGHT UPPER LUNG MASS. LINES AND TUBES ABOVE. ED Physician has reviewed this report. - EKG 14:37 Cardiac Rate: NL EKG Rhythm: Sinus Rhythm - at 93 BPM Ectopy: None EKG Interpretation: This EKG reveals nonspecific T abnormalities, lateral leads. Complex Multi-Symp Course/Dx Course Of Treatment: ADMIT DR BEJARANO. CRITICAL CARE TIME LESS THAN 30 MINUTES. - Diagnoses Provider Diagnoses: Neutropenic fever, Influenza Discharge - Discharge Plan Condition: Fair Disposition: ADMITTED TO [facility] Referrals: Marguerite Shook MD [Primary Care Provider] - The documentation as recorded by the Yang castellanos Julia accurately reflects the service I personally performed and the decisions made by , Felix Burden MD.
[2017-10-28 20:25] LABS: Urine Bacteria 1+ (Absent); Urine Bilirubin Negative (Negative); Urine Glucose Negative (Negative); Urine Nitrite Positive (Negative)
[2017-10-28] MEDS ORDERED: NON FORMULARY MED* (Nutritional Supplements [Ensure] 1 CAN) PO SCH (21:00)
[2017-10-28] MEDS: NS 0.9% 1000 ML* 1,000 ML IV SCH (22:06)
[2017-10-28] MEDS: oxyCODONE/Acetamin 5/325 MG* TAB PO PRN (22:08)
[2017-10-28] MEDS: Potassium Chlor TAB* 20 MEQ TAB.ER PO SCH (22:10)
[2017-10-28] MEDS: Oseltamivir CAP* 75 MG PO SCH (22:10)
--- NOTE | 2017-10-29 01:21 | HP ---
ADMISSION HISTORY AND PHYSICAL: DATE OF ADMISSION: 10/28/17 REASON FOR ADMISSION: Febrile neutropenia, influenza, metastatic lung cancer. HISTORY OF PRESENT ILLNESS: Claribel Avila is a 67-year-old female with history of lung cancer who has recently been on chemotherapy having received Avastin and pemetrexed approximately 1 week ago. For lung cancer details, please see below. The patient is seen in the emergency room accompanied by her healthcare proxy. They stated that she has spent most of the last several months in beds and has been extremely weak and fatigued more or so recently. The weakness is generalized, but she has also has noticed increasing weakness on the left side. She has had a cough for some period of time, but this cough has worsened, although not fully productive over the past 48 hours. She has had a fever to a 100.3 yesterday and even higher today at home. She had difficulty getting out of bed today, was markedly weak and ambulance was called to bring her to the emergency room. She reports her appetite has been very poor , almost no p.o. intake either liquids or solids over the last week, although is slightly more in the emergency room today. She denies any nausea or vomiting. She has had some small amounts of diarrhea recently as well. PAST MEDICAL HISTORY: Lung cancer stage IV adenocarcinoma of the lung. EGFR, ROS, ALK and BRAF negative, also PDR1 negative. She was found on the screening low-dose CT scan of 3.5 cm mass in the right upper lobe along with the right paratracheal lymph node. PET scan was positive at the mass and also the mediastinal lymph nodes. There were no signs of any metastatic disease including no disease to brain at that time. Bronchoscopy was positive in the R10, R11, and R4 lymph nodes making the T2 N2 M0 non-small cell lung cancer. In September 2016, she was started on chemotherapy with cisplatin and pemetrexed with concurrent radiation therapy. Following 1 cycle of chemo, she was switched to carboplatin and pemetrexed and completed this therapy along with radiation therapy in mid October 2016. In March of 2017, she was found to have no significant disease on PET; but in April of 2017, was found to have multiple new PET [employer] lesions including 2 large cerebellar lesions and was treated with radiation therapy to the brain in April and May 2017. Subsequent, PET revealed a right upper lobe lesion along with mediastinal and supraclavicular adenopathy and cervical adenopathy was positive for metastatic disease. In June of 2017, she was started on carboplatin, pemetrexed, and Avastin. She developed severe prolonged pancytopenia along with the pneumonia and carboplatin was stopped after 1 cycle. She subsequently had been treated with subsequent cycles with Avastin and pemetrexed, most recently receiving chemotherapy on 10/22/17. She is currently day #7 status post chemo. At the time of that treatment, she had neutrophil count of over 4000 and platelet count of 155,000. Past medical history is otherwise significant for celiac disease, chronic back pain, coronary artery disease, status post myocardial infarction and stent placement in 2012, diverticulitis, GERD, hyperlipidemia, hypertension, hypothyroidism, COPD, status post aortic aneurysm clipping in 2009, status post bowel resection and re-anastomosis in 2012, status post iliac femoral stent in 2012, status post tubal ligation in 1974. MEDICATIONS: She and healthcare proxy reports she is taking almost none of her home meds, but she is supposed to be on: 1. Compazine 10 mg 4 times a day 2. Endocet 5/325 4 times a day 3. Folic acid 1 mg daily. 4. Metoprolol 25 mg ER daily. 5. MiraLAX p.r.n. 6. ProAir 2 puffs 4 times a day p.r.n. 7. Zofran p.r.n. She had previously been on: 1. Levothyroxine. 2. Atorvastatin. 3. Aspirin. 4. Wellbutrin. 5. Omeprazole as recently as early this fall. ALLERGIES: To PENICILLIN. FAMILY HISTORY: Cousin with metastatic cancer in her 70s. Mother with lung cancer with cancer of unknown primary. Grandfather with coronary artery disease. SOCIAL HISTORY: She has been a long time smoker, 51 years of half pack per day. Former alcoholic. Has not smoked marijuana recently, daily until recently. Her cousin, Ana Jackson, is her healthcare proxy and surrogate decision maker. REVIEW OF SYSTEMS: Denies any headache or visual changes. Does notice overall weakness and also left-sided weakness more or so than right, has spent almost all the time recently in bed, appetite has been poor, very low oral intake. No nausea or vomiting. Mild diarrhea, has been quite short of breath without any chest pain. Has had a productive cough, although, is not bringing anything all the way up. Has had some recent bruising without major bleeding, specifically no nose bleeds, gum bleeds, blood in the urine or stool. Multiple ecchymosis. Review of systems otherwise negative except as discussed above. PHYSICAL EXAMINATION GENERAL: A 67-year-old female in no acute distress, although, cuddle under her blankets in the emergency room on her stretcher and appearing somewhat uncomfortable. VITAL SIGNS: Blood pressure 122/81, pulse 81, T-max in the emergency room 101.3 , currently 99.1. HEENT: PERRL, EOMI. Slightly dry mucous membranes. No thrush. No palpable cervical, supraclavicular, or axillary adenopathy. LUNGS: Rhonchi bilaterally. HEART: Regular rate and rhythm without murmurs, rubs, or gallops. ABDOMEN: Soft, nontender without masses or organomegaly. EXTREMITIES: 2+ pitting edema on left, 1+ on the right. NEUROLOGIC: The patient is alert and oriented. Strength is 4/5 in bilateral upper extremities and right lower extremity and about 3+ to 4- in the left lower extremity. DIAGNOSTIC STUDIES/LAB DATA: CBC with a white count of 700, 48 polys, 33 lymphs, 6 monocytes for an ANC of 400, H and H of 36/11.9. This is considerably higher than it was 1 to 2 weeks ago and she has had a transfusion of packed red blood cells of 3 units over the past 4 weeks including 1 unit 1 week ago. Platelet count of 20,000, markedly down from 155 at the of chemo 1 week ago. Chemistry studies: Sodium 138, potassium 3.0, chloride is 98, bicarb 32, BUN 25, creatinine 0.83, glucose 117. LFTs essentially normal with AST of 44 and ALT of 15, bilirubin of 0.9, alk phos 101, troponin 0.02, and CK of 124, C-reactive protein is extremely high at 343. Recent TSH 1 week ago was 17.3 and she is not currently on her Synthroid. Lactic acid of 1.3 and falling to 0.9. Microbiology cultures are pending. Influenza A rapid test is positive. Influenza B rapid test is negative. Chest x-ray reveals the right upper lobe mass, it is known to have been present. No obvious infiltrates are noted. EKG with nonspecific ST-T wave changes. IMPRESSION AND PLAN: 1. A 67-year-old female with metastatic non-small cell lung cancer with known history of brain metastasis who now presents with progressive weakness spending most of the time in bed, very little oral intake, status post chemotherapy 1 week ago. She now has febrile neutropenia and symptoms consistent with the pneumonia, although not seen on the chest x-ray and a positive influenza rapid test. She has been started on cefepime 2 g b.i.d. for her febrile neutropenia and started on Tamiflu 75 mg b.i.d. for influenza. She has received almost 2 L of IV fluids in the emergency room. Will continue to receive IV fluids. 2. Metastatic non-small cell lung cancer. She has known brain metastasis and is somewhat weak on her left than on the right. It is not clear to me whether this is a progressive finding or not. She most recently had imaging of the brain with an MRI of the brain August 14 and was scheduled to have 1 done shortly. In addition, her most recent systemic imaging was performed on when a PET scan had revealed 3.5 x 4.3 cm mass in the apical segment of the right upper lobe, which had increased in size on her prior scan and was positive with an SUV of 7.7. In addition, multiple hypermetabolic lymph nodes and pulmonary nodules were noted with progression. Given that she has had chemotherapy on multiple treatment cycles since then, repeat imaging with either PET or CT scan in the near future will also be warranted. 3. Hypokalemia. The patient will receive potassium supplementation. 4. Given the platelet count of 20,000, DVT prophylaxis will be held in terms of medications. Compression devices will be used. 5. Hypothyroidism. She has been off her Synthroid recently. She will be resumed given that her TSH is elevated. 6. Thrombocytopenia related to recent chemotherapy. 7. Gastroesophageal reflux disease. Will be resumed on omeprazole. 8. Tobacco abuse. Will be given a nicotine patch. 9. Chronic obstructive pulmonary disease, p.r.n. nebs and inhalers. 10. Code status is full at the present time. This was discussed briefly with her healthcare proxy. full code and this will be discussed further with her primary oncologist. [id number]/[facility] #: [id number] [facility] HOSPITALChely
[2017-10-29] MEDS: Saline FLUSH-CENTRAL* 10 ML SYRINGE CENT\\PICC SCH ×3 (02:05→16:25)
[2017-10-29] MEDS ORDERED: NS 0.9% 1000 ML* 1,000 ML IV SCH (03:00)
[2017-10-29] MEDS: Cefepime 2 GM in Dextrose(*) 2 GM/50 ML BAG IV SCH ×2 (03:20→16:39)
[2017-10-29] MEDS: NS 0.9% 1000 ML* 1,000 ML IV SCH (04:30)
[2017-10-29] MEDS: oxyCODONE/Acetamin 5/325 MG* TAB PO PRN ×2 (06:16→20:55)
[2017-10-29] MEDS: Levothyroxine TAB* 50 MCG TAB PO SCH (06:17)
[2017-10-29] MEDS: Omeprazole CAP* 20 MG PO SCH (06:17)
[2017-10-29] MEDS: Nicotine PATCH 14 MG/24 HR* PATCH TRANSDERM SCH (07:46)
[2017-10-29] MEDS: Oseltamivir CAP* 75 MG PO SCH ×2 (07:46→20:55)
[2017-10-29] MEDS: Potassium Chlor TAB* 20 MEQ TAB.ER PO SCH ×2 (07:46→20:55)
[2017-10-29 07:57] LABS: BUN/Creatinine Ratio 25.4 (8-20); Calcium 7.9 mg/dL (8.6-10.3); EGFR African American 112.6 (>60); EGFR Non-African American 87.5 (>60); Potassium 3.2 mmol/L (3.5-5.0)
[2017-10-29 08:02] LABS: Hemoglobin 10.1 g/dl (12.0-16.0)
[2017-10-29 08:04] LABS: Hematocrit 30 % (35-47); Mean Corpuscular HGB Conc 34 g/dl (31-36); Mean Corpuscular Hemoglobin 33 pg (27-31); Mean Corpuscular Volume 98 fL (80-97); Mean Platelet Volume 10 um3 (7.4-10.4); Red Blood Count 3.06 10^6/ul (4.0-5.4); Red Cell Distribution Width 22 % (10.5-15)
[2017-10-29 08:09] LABS: Comments Flag Yes
[2017-10-29 08:10] LABS: Add Diff/Slide Review? Manual Diff Added
[2017-10-29] MEDS ORDERED: methylPREDNISolone 125 MG* 2 ML VIAL IV ONE (09:33)
[2017-10-29 09:41] LABS: Neutrophil % 44 % (38-83)
[2017-10-29 09:42] LABS: Hypochromasia 1+; Toxic Granulation 1+
--- NOTE | 2017-10-29 09:42 | PN ---
Progress Note - Progress Note Date of Service: 10/29/17 SOAP: Subjective: feels "terrible" very weak x 3 weeks. +SOB and cough. minimally responsive but will answer questions with significant prompting Objective: Vital Signs Temp Pulse Resp BP Pulse Ox 98.5 F 81 20 113/41 97 10/29/17 08:31 10/29/17 08:31 10/29/17 08:31 10/29/17 08:31 10/29/17 08:31 lying flat in bed quite sedate op -dry with thrush diffuse wheeze and rhonchi s1 s2 distant soft no obvious tenderness no le edema scattered petechiae oriented to name, hospital, october 1917. will follow commands, albeit slowly port clean Laboratory Results - last 24 hr 10/28/17 10/28/17 10/28/17 14:10 14:10 14:10 WBC RBC Hgb Hct MCV MCH MCHC RDW Plt Count MPV Absolute Neuts (auto) Absolute Lymphs (auto) Absolute Monos (auto) Absolute Eos (auto) Absolute Basos (auto) Absolute Nucleated RBC Immature Gran % Neutrophils % Band Neutrophils % Lymphocytes % Reactive Lymphs % Monocytes % Metamyelocytes % Normal RBC Morphology INR (Anticoag Therapy) 1.33 H APTT 55.5 H Sodium 138 Potassium 3.0 L Chloride 98 L Carbon Dioxide 32 Anion Gap 8 BUN 25 H Creatinine 0.83 Est GFR ( Amer) 87.9 Est GFR (Non-Af Amer) 68.4 BUN/Creatinine Ratio 30.1 H Glucose 117 H Lactic Acid Calcium 8.9 Total Bilirubin 0.90 AST 44 H ALT 15 Alkaline Phosphatase 101 Total Creatine Kinase 124 Troponin I 0.02 C-Reactive Protein 343.31 H B-Natriuretic Peptide 84 Total Protein 7.0 Albumin 2.7 L Globulin 4.3 H Albumin/Globulin Ratio 0.6 L Urine Color Urine Appearance Urine pH Ur Specific [place] Urine Protein Urine Ketones Urine Blood Urine Nitrate Urine Bilirubin Urine Urobilinogen Ur Leukocyte Esterase Urine WBC (Auto) Urine RBC (Auto) Ur Squamous Epith Cells Amorphous Crystals Urine Bacteria Urine Glucose Influenza A (Rapid) Influenza B (Rapid) 10/28/17 10/28/17 10/28/17 14:10 14:10 16:09 WBC 0.7 L RBC 3.65 L Hgb 11.9 L Hct 36 MCV 98 H MCH 33 H MCHC 33 RDW 22 H Plt Count 20 L MPV 9 Absolute Neuts (auto) 0.4 L* Absolute Lymphs (auto) 0.3 L Absolute Monos (auto) 0 Absolute Eos (auto) 0 Absolute Basos (auto) 0 Absolute Nucleated RBC 0 Immature Gran % 5 Neutrophils % 48 Band Neutrophils % 4 Lymphocytes % 33 Reactive Lymphs % 8 H D Monocytes % 6 Metamyelocytes % 1 Normal RBC Morphology Normal INR (Anticoag Therapy) APTT Sodium Potassium Chloride Carbon Dioxide Anion Gap BUN Creatinine Est GFR ( Amer) Est GFR (Non-Af Amer) BUN/Creatinine Ratio Glucose Lactic Acid 1.3 Calcium Total Bilirubin AST ALT Alkaline Phosphatase Total Creatine Kinase Troponin I C-Reactive Protein B-Natriuretic Peptide Total Protein Albumin Globulin Albumin/Globulin Ratio Urine Color Urine Appearance Urine pH Ur Specific [place] Urine Protein Urine Ketones Urine Blood Urine Nitrate Urine Bilirubin Urine Urobilinogen Ur Leukocyte Esterase Urine WBC (Auto) Urine RBC (Auto) Ur Squamous Epith Cells Amorphous Crystals Urine Bacteria Urine Glucose Influenza A (Rapid) Positive H Influenza B (Rapid) Negative 10/28/17 10/28/17 10/29/17 18:18 19:50 06:12 WBC RBC Hgb Hct MCV MCH MCHC RDW Plt Count MPV Absolute Neuts (auto) Absolute Lymphs (auto) Absolute Monos (auto) Absolute Eos (auto) Absolute Basos (auto) Absolute Nucleated RBC Immature Gran % Neutrophils % Band Neutrophils % Lymphocytes % Reactive Lymphs % Monocytes % Metamyelocytes % Normal RBC Morphology INR (Anticoag Therapy) APTT Sodium 143 Potassium 3.2 L Chloride 108 Carbon Dioxide 29 Anion Gap 6 BUN 17 Creatinine 0.67 Est GFR ( Amer) 112.6 Est GFR (Non-Af Amer) 87.5 BUN/Creatinine Ratio 25.4 H Glucose 72 Lactic Acid 0.9 Calcium 7.9 L Total Bilirubin AST ALT Alkaline Phosphatase Total Creatine Kinase Troponin I C-Reactive Protein B-Natriuretic Peptide Total Protein Albumin Globulin Albumin/Globulin Ratio Urine Color Yellow Urine Appearance Clear Urine pH 7.0 Ur Specific [place] 1.005 L Urine Protein Negative Urine Ketones Negative Urine Blood 1+ H Urine Nitrate Positive H Urine Bilirubin Negative Urine Urobilinogen Negative Ur Leukocyte Esterase 1+ H Urine WBC (Auto) 1+(6-10/hpf) H Urine RBC (Auto) Trace(0-2/hpf) Ur Squamous Epith Cells Present H Amorphous Crystals Present H Urine Bacteria 1+ H Urine Glucose Negative Influenza A (Rapid) Influenza B (Rapid) 10/29/17 06:12 WBC 1.0 L RBC 3.06 L Hgb 10.1 L Hct 30 L MCV 98 H MCH 33 H MCHC 34 RDW 22 H Plt Count 8 L* D MPV 10 Absolute Neuts (auto) Absolute Lymphs (auto) Absolute Monos (auto) Absolute Eos (auto) Absolute Basos (auto) Absolute Nucleated RBC Immature Gran % Neutrophils % Band Neutrophils % Lymphocytes % Reactive Lymphs % Monocytes % Metamyelocytes % Normal RBC Morphology INR (Anticoag Therapy) APTT Sodium Potassium Chloride Carbon Dioxide Anion Gap BUN Creatinine Est GFR ( Amer) Est GFR (Non-Af Amer) BUN/Creatinine Ratio Glucose Lactic Acid Calcium Total Bilirubin AST ALT Alkaline Phosphatase Total Creatine Kinase Troponin I C-Reactive Protein B-Natriuretic Peptide Total Protein Albumin Globulin Albumin/Globulin Ratio Urine Color Urine Appearance Urine pH Ur Specific [place] Urine Protein Urine Ketones Urine Blood Urine Nitrate Urine Bilirubin Urine Urobilinogen Ur Leukocyte Esterase Urine WBC (Auto) Urine RBC (Auto) Ur Squamous Epith Cells Amorphous Crystals Urine Bacteria Urine Glucose Influenza A (Rapid) Influenza B (Rapid) Acetaminophen (Tylenol Tab*) 650 mg PO Q6H PRN PRN Reason: FEVER/PAIN Albuterol (Ventolin Hfa Inhaler*) 2 puff INH QID PRN PRN Reason: SHORTNESS OF BREATH Benzonatate (Tessalon Cap*) 100 mg PO Q6HR PRN PRN Reason: COUGH Last Admin: 10/28/17 22:10 Dose: 100 mg Cefepime HCl (Maxipime 2 Gm In Dextrose Duplex (*)) 2 gm in 50 mls @ 100 mls/ hr IV Q12H [facility] Last Admin: 10/29/17 03:20 Dose: 100 mls/hr Potassium Chloride/Sodium Chloride (Ns 0.9% W/ 40 Meq Kcl 1000 Ml*) 1,000 mls @ 125 mls/hr IV PER RATE [facility] Fluconazole/Sodium Chloride (Diflucan 100 Mg Ivpremix(*)) 100 mg in 50 mls @ 100 mls/hr IVPB Q24H [facility] Levothyroxine Sodium (Synthroid Tab*) 50 mcg PO DAILY@0600 [facility] Last Admin: 10/29/17 06:17 Dose: 50 mcg Methylprednisolone Sodium Succinate (Solu-Medrol 125mg *) 125 mg IV ONCE ONE Stop: 10/29/17 09:34 Nicotine (Nicotine Patch 14 Mg/24 Hr*) 1 patch TRANSDERM DAILY [facility] Last Admin: 10/29/17 07:46 Dose: 1 patch Omeprazole (Prilosec Cap*) 20 mg PO 0600 [facility] Last Admin: 10/29/17 06:17 Dose: 20 mg Ondansetron HCl (Zofran Tab*) 4 mg PO Q4HR PRN PRN Reason: NAUSEA Last Admin: 10/29/17 07:46 Dose: 4 mg Oseltamivir Phosphate (Tamiflu Cap*) 75 mg PO BID [facility] Stop: 11/02/17 09:01 Last Admin: 10/29/17 07:46 Dose: 75 mg Oxycodone/Acetaminophen (Percocet 5/325 Tab*) 1 tab PO Q6H PRN PRN Reason: PAIN Last Admin: 10/29/17 06:16 Dose: 1 tab Pharmacy Profile Note (Nicotine Patch Removal Note*) 1 note PATCH OFF 2100 [facility] Polyethylene Glycol/Electrolytes (Miralax*) 17 gm PO BEDTIME PRN PRN Reason: CONSTIPATION Potassium Chloride (Klor Con Er Tab*) 20 meq PO BID [facility] Last Admin: 10/29/17 07:46 Dose: 20 meq Prochlorperazine (Compazine Tab*) 10 mg PO QID PRN PRN Reason: NAUSEA/VOMITING Sodium Chloride (Central Saline Flush*) 10 ml CENT\\PICC Q12H [facility] Last Admin: 10/29/17 06:20 Dose: Not Given Assessment: 67 yo F w metastatic NSCLC on palliative pemetrexed/avastin admitted with neutropenic fevers and influenza A positive. She looks quite ill right now, though is hemodynamically stable. We will monitor very closely and may need to move to the ICU for observation. Plan: influenza A/neutropenic fever: lungs sound very wheezy and rhonchorous, but CXR yesterday clear. will get CT C /A/P now with IV contrast only (not really taking PO) -add solumedrol 125 mg iv x 1 then bid -tamiflu bid -cefepime 2g IV q12 hours pancytopenia: chemotherapy induced, but unclear if on folic acid at home. will add this in IV now. gets B12 IM in our office transfuse 1 u Platelets for severe thrombocytopenia today hypokalemia: related to poor PO intake will add KCL to fluids AMS: likely related to critical illness, though if no improvement with tx of infection will need to repeat brain MRI full code as per Dr. Bee's conversation with HCP and Allegra Willoughby prior conversation with patient. no DVT prophylaxis given marked thrombocytopenia
[2017-10-29 09:43] LABS: Add Path Review? YES
[2017-10-29] MEDS: Folic Acid IV* 1 MG/0.2 ML SYRINGE IV SCH (10:32)
[2017-10-29] MEDS: Fluconazole 100 MG IVPREMIX(*) 100 MG/50 ML BAG IVPB SCH (10:32)
[2017-10-29] MEDS ORDERED: Iohexol 300* (CONTRAST) 10 ML SDV IV ONE (11:48)
--- NOTE | 2017-10-29 12:27 | RAD ---
INDICATION: Fever and cough, lung carcinoma. COMPARISON: Comparison is made with a prior chest x-ray study from October 28, 2017 and a prior PET/CT study from September 01, 2017. TECHNIQUE: A CT scan of the chest, abdomen and pelvis was performed with intravenous and oral contrast following intravenous injection of 76 ml of Omnipaque 300 nonionic contrast. Contiguous axial sections were obtained from the lung apices through the symphysis pubis. Images were reconstructed in the coronal and sagittal planes. FINDINGS: There is a large lesion centered in the apical posterior portion of the right upper lobe which has increased in size. This measures 8.0 x 5.4 cm in size in previously measured 4.9 x 4.7 cm in size. The lesion has cavitated with a thick irregular wall and an air-fluid level present which is a new finding also from the prior study. In addition there are multiple pulmonary nodules present which are most prominent in the right lung. The largest nodule is present in the right lower lobe and measures up to 0.9 cm in size and is unchanged from the prior study. There is also a new right perihilar infiltrate and a patchy infiltrate in the superior segment of the right lower lobe and a more confluent infiltrate in the basilar segments of the left lower lobe suspicious for pneumonia. There is a trace right pleural effusion. No enlarged mediastinal lymph nodes are seen. There are enlarged lymph nodes around the right hilum measuring up to 1.1 cm in size. These are not as well seen on the prior noncontrast PET/CT study. The heart is within normal limits in size. No pericardial effusion is present. The thoracic aorta is normal in caliber. The liver and spleen are normal in size. There are 2 small approximately 0.4 cm hypodense lesions in the lateral segment of the left hepatic lobe. One of these is seen on a prior CT from April 2009 and both likely represent benign lesions possibly cysts. No other focal abnormality is seen. The gallbladder appears distended. No gallbladder wall thickening or calcified gallstones are seen. The pancreas appears to be within normal limits. The right adrenal gland appears normal. The left adrenal gland appears slightly prominent although unchanged from the prior PET/CT study the kidneys are normal in size. There is heterogeneous enhancement of the right kidney which is a nonspecific finding although suspicious for pyelonephritis. No hydronephrosis is seen. The abdominal aorta is normal in caliber. There is moderate calcific plaque present. No significant enlarged retroperitoneal lymph nodes are seen. The stomach, small and large bowel appear nondistended. There is an anterior abdominal wall hernia containing fat. This is unchanged from the prior study. No free intraperitoneal air or fluid is seen. No significant focal osseous abnormality is seen. IMPRESSION: 1. THERE IS HETEROGENEOUS ENHANCEMENT OF THE RIGHT KIDNEY WHICH IS A NONSPECIFIC FINDING ALTHOUGH SUGGESTIVE OF PYELONEPHRITIS MUCH LESS LIKELY METASTATIC DISEASE. 2. INTERVAL ENLARGEMENT OF THE RIGHT UPPER LOBE MASS WITH NEW CAVITATION AND AN AIR-FLUID LEVEL CONSISTENT WITH PROGRESSION OF DISEASE. 3. SCATTERED PULMONARY NODULES CONSISTENT WITH METASTATIC DISEASE SIMILAR TO THE PRIOR STUDY. 4. NEW BILATERAL INFILTRATES SUSPICIOUS FOR PNEUMONIA.
[2017-10-29] MEDS: Acetaminophen TAB* 325 MG PO PRN (12:34)
[2017-10-29] MEDS: NS 0.9% w/ 40 Meq KCL 1000 ML* 1,000 ML IV SCH (15:12)
[2017-10-29 15:40] LABS: Mean Platelet Volume 8 um3 (7.4-10.4)
[2017-10-29 15:41] LABS: Comments Flag Yes
[2017-10-29] MEDS: methylPREDNISolone SOD 40 MG* 1 ML VIAL IV SCH (20:55)
[2017-10-29] MEDS: Nicotine Patch Removal NOTE PATCH OFF SCH (21:10)
[2017-10-30] MEDS: NS 0.9% w/ 40 Meq KCL 1000 ML* 1,000 ML IV SCH ×3 (00:21→21:52)
[2017-10-30] MEDS: Cefepime 2 GM in Dextrose(*) 2 GM/50 ML BAG IV SCH ×2 (03:55→15:42)
[2017-10-30] MEDS: Saline FLUSH-CENTRAL* 10 ML SYRINGE CENT\\PICC SCH ×2 (05:29→16:13)
[2017-10-30] MEDS: Omeprazole CAP* 20 MG PO SCH (05:30)
[2017-10-30] MEDS: Levothyroxine TAB* 50 MCG TAB PO SCH (05:30)
[2017-10-30 06:07] LABS: Hematocrit 29 % (35-47); Hemoglobin 9.8 g/dl (12.0-16.0); Mean Corpuscular HGB Conc 34 g/dl (31-36); Mean Corpuscular Hemoglobin 34 pg (27-31); Mean Corpuscular Volume 99 fL (80-97); Mean Platelet Volume 9 um3 (7.4-10.4); Red Blood Count 2.89 10^6/ul (4.0-5.4); Red Cell Distribution Width 22 % (10.5-15); White Blood Count 0.7 10^3/ul (3.5-10.8)
[2017-10-30 06:08] LABS: Add Diff/Slide Review? Manual Diff Added; Comments Flag Yes
[2017-10-30 07:18] LABS: Immature Granulocytes 3 % (0-9); Neutrophil % 65 % (38-83)
[2017-10-30 07:19] LABS: Hypochromasia 1+
[2017-10-30 07:53] LABS: Calcium 7.9 mg/dL (8.6-10.3); Potassium 4.8 mmol/L (3.5-5.0)
[2017-10-30 08:16] LABS: BUN/Creatinine Ratio 21.2 (8-20); EGFR African American 114.5 (>60); EGFR Non-African American 89.1 (>60)
--- NOTE | 2017-10-30 09:36 | PN ---
Progress Note - Progress Note Date of Service: 10/30/17 SOAP: Subjective: []She is orienting and giving yes/no answers to questions, following basic commands. Not at baseline mental status. She denies pain. Objective: Vital Signs Temp Pulse Resp BP Pulse Ox 97.0 F 69 20 151/67 100 10/30/17 07:46 10/30/17 07:46 10/30/17 07:46 10/30/17 07:46 10/30/17 04:35 []lying flat in bed, no acute distress. op -dry no thrush no wheezing today. decreased BS s1 s2 distant soft no obvious tenderness no le edema, warm to touch scattered petechiae responding to voice, will follow commands, albeit slowly CT reviewed and RUL primary mass is stable, progressive infiltrating process in hilum on right, anterior RUL Continued blanco cytopenia Assessment: 67 yo F w metastatic NSCLC on palliative pemetrexed/avastin admitted with neutropenic fevers and influenza A positive. She continues to struggle, though is hemodynamically stable. Mental status is below baseline, last MRI brain was in August. . CT scan with likely progressive disease in chest. Plan: 1. Lung cancer. Discussed condition with daughter and that she has progressive disease. She cannot continue chemotherapy. We had discussed immunotherpy in the past but at this time she is not a candiate and hopsice is more appropriate. She may recover from this event but I am very concerned about her current condition. 2. Discussed DNR/DNI. If breathing worsens it will be from cancer and ventilator will maintain life without chance of recovery. Discussed with foster care worker, Laurita. She will think about it and will try and review later today. Full code remains at this time. 3.Influenza A/neutropenic fever. Seems slightly improved with Solumedrol today. Difficult to distinguish CT finding of infection from cancer. - Continue Tamiflu bid - Cefepime 2g IV q12 hours 4. pancytopenia: Chemotherapy induced, was not consistently on Folic Acid and contribution of infection. - Continue folic acid - Transfuse as needed. - Antibiotics until ANC > 1000 5. Hypokalemia. Improved, continue current IVF 6. AMS. Infection vs cancer. Re-check MRI brain. likely related to critical illness, though if no improvement with tx of infection will need to repeat brain MRI
[2017-10-30] MEDS: Potassium Chlor TAB* 20 MEQ TAB.ER PO SCH ×2 (09:54→21:33)
[2017-10-30] MEDS: Nicotine PATCH 14 MG/24 HR* PATCH TRANSDERM SCH (09:54)
[2017-10-30] MEDS: Acetaminophen TAB* 325 MG PO PRN (09:55)
[2017-10-30] MEDS: Oseltamivir CAP* 75 MG PO SCH ×2 (09:55→21:33)
[2017-10-30] MEDS: methylPREDNISolone SOD 40 MG* 1 ML VIAL IV SCH ×2 (09:56→21:33)
[2017-10-30] MEDS ORDERED: Gadoteridol* (CONTRAST) 279.3 MG/ML 10 ML IV ONE (11:08)
--- NOTE | 2017-10-30 11:46 | RAD ---
HISTORY: Cancer, mental status change COMPARISONS: August 14, 2017 June 17, 2017 TECHNIQUE: The following sequences were obtained of the head: Sagittal T1-weighted images, axial T2-weighted images, axial FLAIR images, axial susceptibility weighted images, axial T1-weighted images. Additionally, axial diffusion-weighted images were obtained with calculated apparent diffusion coefficients. FINDINGS: HEMORRHAGE/INFARCT: There is elevated diffusion signal within the right inferior cerebellum and right frontal parietal brennan radiata consistent with subacute nonhemorrhagic infarct. Elsewhere, there is no hemorrhage or acute infarct. MASSES/SHIFT: There is no mass or shift. EXTRA-AXIAL SPACES/MENINGES: There are no extra-axial fluid collections. SULCI AND VENTRICLES: The sulci and ventricles are normal in size and position for the patient's stated age. CEREBRUM: There is elevated T2/FLAIR signal within the cerebral hemispheres bilaterally including the areas of restricted diffusion. There is encephalomalacia of the right frontal operculum BRAINSTEM: There are no focal parenchymal abnormalities. CEREBELLUM: There is elevated T2/FLAIR signal in the right inferior cerebellum. The cerebellar tonsils are normal in size and position. SELLA: The sella is normal. PINEAL: The pineal region is clear. CP ANGLE/TEMPORAL BONES: The labyrinthine structures are grossly normal. VESSELS: Normal flow-voids are noted within the visualized vertebral vasculature. DIFFUSION ABNORMALITIES: As noted above, there is elevated diffusion signal within the right frontal and parietal brennan radiata as well as within the right inferior cerebellum. On the ADC maps, there is restricted diffusion within the right frontoparietal lesions. There is minimally decreased restricted diffusion within the right inferior cerebellum. PARANASAL SINUSES/MASTOIDS: The paranasal sinuses are clear. ORBITS: The orbits are unremarkable. BONES AND SOFT TISSUE: There is post surgical change to the skull. OTHER: There is no abnormal enhancement. IMPRESSION: 1. THERE IS RESTRICTED DIFFUSION WITHIN THE RIGHT FRONTAL AND PARIETAL BRENNAN RADIATA AND RIGHT INFERIOR CEREBELLUM SUGGESTIVE OF SUBACUTE NONHEMORRHAGIC INFARCT. THIS INVOLVES 2 DISTINCT VASCULAR TERRITORIES, AND THERE ARE FEATURES TO SUGGEST THAT THESE ARE OF DIFFERENT AGES, SUGGESTIVE OF EMBOLIC DISEASE. 2. THERE IS NO ABNORMAL ENHANCEMENT
[2017-10-30] MEDS: Folic Acid IV* 1 MG/0.2 ML SYRINGE IV SCH (11:50)
[2017-10-30] MEDS: Fluconazole 100 MG IVPREMIX(*) 100 MG/50 ML BAG IVPB SCH (11:51)
[2017-10-30] MEDS: Nicotine Patch Removal NOTE PATCH OFF SCH (21:33)
[2017-10-31] MEDS: Saline FLUSH-CENTRAL* 10 ML SYRINGE CENT\\PICC SCH ×2 (04:49→16:58)
[2017-10-31] MEDS: Cefepime 2 GM in Dextrose(*) 2 GM/50 ML BAG IV SCH ×2 (04:58→16:58)
[2017-10-31] MEDS: Omeprazole CAP* 20 MG PO SCH (04:59)
[2017-10-31] MEDS: Levothyroxine TAB* 50 MCG TAB PO SCH (04:59)
[2017-10-31 05:23] LABS: Hematocrit 29 % (35-47); Hemoglobin 9.7 g/dl (12.0-16.0); Mean Corpuscular HGB Conc 33 g/dl (31-36); Mean Corpuscular Hemoglobin 33 pg (27-31); Mean Corpuscular Volume 100 fL (80-97); Mean Platelet Volume 9 um3 (7.4-10.4); Red Blood Count 2.91 10^6/ul (4.0-5.4); Red Cell Distribution Width 22 % (10.5-15); White Blood Count 0.9 10^3/ul (3.5-10.8)
[2017-10-31 05:38] LABS: Add Diff/Slide Review? Manual Diff Added; Comments Flag Yes
[2017-10-31 05:39] LABS: Albumin 2.3 g/dL (3.2-5.2); BUN/Creatinine Ratio 26.5 (8-20); Calcium 7.9 mg/dL (8.6-10.3); EGFR African American 110.7 (>60); Globulin 3.7 g/dL (2-4); Magnesium 1.6 mg/dL (1.9-2.7); Total Bilirubin 0.9 mg/dL (0.2-1.0)
[2017-10-31 05:41] LABS: Potassium 5.7 mmol/L (3.5-5.0)
[2017-10-31 06:27] LABS: Hypochromasia 1+; Immature Granulocytes 5 % (0-9); Macrocytosis 1+; Microcytosis 1+; Neutrophil % 69 % (38-83); Reactive Lymph % 2 % (0-6)
[2017-10-31 06:28] LABS: Add Path Review? YES; Toxic Granulation 1+
[2017-10-31] MEDS ORDERED: NS 0.9% 1000 ML* 1,000 ML IV SCH (08:30)
[2017-10-31] MEDS: Nicotine PATCH 14 MG/24 HR* PATCH TRANSDERM SCH (10:15)
[2017-10-31] MEDS: Folic Acid IV* 1 MG/0.2 ML SYRINGE IV SCH (10:15)
[2017-10-31] MEDS: Oseltamivir CAP* 75 MG PO SCH ×2 (11:29→20:55)
[2017-10-31] MEDS: methylPREDNISolone SOD 40 MG* 1 ML VIAL IV SCH ×2 (11:39→20:54)
[2017-10-31] MEDS: Fluconazole 100 MG IVPREMIX(*) 100 MG/50 ML BAG IVPB SCH (11:39)
[2017-10-31] MEDS: NS 0.9% 1000 ML* 1,000 ML IV SCH (11:39)
[2017-11-01] MEDS: Cefepime 2 GM in Dextrose(*) 2 GM/50 ML BAG IV SCH ×2 (03:59→16:17)
[2017-11-01] MEDS: Saline FLUSH-CENTRAL* 10 ML SYRINGE CENT\\PICC SCH ×2 (04:02→16:17)
[2017-11-01] MEDS: Oseltamivir CAP* 75 MG PO SCH ×2 (08:59→20:37)
[2017-11-01] MEDS: Fluconazole 100 MG IVPREMIX(*) 100 MG/50 ML BAG IVPB SCH (10:06)
[2017-11-01] MEDS: methylPREDNISolone SOD 40 MG* 1 ML VIAL IV SCH ×2 (10:07→20:33)
[2017-11-01] MEDS: NS 0.9% 1000 ML* 1,000 ML IV SCH (18:16)
[2017-11-02] MEDS: Cefepime 2 GM in Dextrose(*) 2 GM/50 ML BAG IV SCH ×2 (04:05→16:49)
[2017-11-02] MEDS: Saline FLUSH-CENTRAL* 10 ML SYRINGE CENT\\PICC SCH ×2 (06:14→16:55)
[2017-11-02] MEDS: methylPREDNISolone SOD 40 MG* 1 ML VIAL IV SCH ×2 (08:59→20:07)
[2017-11-02] MEDS: Oseltamivir CAP* 75 MG PO SCH (09:00)
[2017-11-02] MEDS: Fluconazole 100 MG IVPREMIX(*) 100 MG/50 ML BAG IVPB SCH (10:55)
[2017-11-02] MEDS: NS 0.9% 1000 ML* 1,000 ML IV SCH (20:07)
[2017-11-03 00:24] VITALS: BP 146/52
[2017-11-03] MEDS: Cefepime 2 GM in Dextrose(*) 2 GM/50 ML BAG IV SCH (03:36)
== END 2017-11-03 04:30 | disposition expired | DRG 809 ==
LOC: ED 13:49 → MEDTELE 17:47
PROVIDERS: ADMIT Internal Medicine Hematology & Oncology; ATTEND Internal Medicine Hematology & Oncology
PROC: 30233N1 Transfusion of Nonautologous Red Blood Cells into Peripheral Vein, Percutaneous Approach (ICD-10-PCS; principal; 2017-10-29)
DX: D70.9 Neutropenia, unspecified (principal); C34.90 Malignant neoplasm of unspecified part of unspecified bronchus or lung; C79.31 Secondary malignant neoplasm of brain; D69.59 Other secondary thrombocytopenia; J44.9 Chronic obstructive pulmonary disease, unspecified; D61.810 Antineoplastic chemotherapy induced pancytopenia; E03.9 Hypothyroidism, unspecified; E78.5 Hyperlipidemia, unspecified; G89.29 Other chronic pain; R19.7 Diarrhea, unspecified; R91.8 Other nonspecific abnormal finding of lung field; M54.9 Dorsalgia, unspecified; E87.6 Hypokalemia; J11.1 Influenza due to unidentified influenza virus with other respiratory manifestations; F17.210 Nicotine dependence, cigarettes, uncomplicated; T45.1X5A Adverse effect of antineoplastic and immunosuppressive drugs, initial encounter; K21.9 Gastro-esophageal reflux disease without esophagitis; I10 Essential (primary) hypertension; F32.9 Major depressive disorder, single episode, unspecified; M81.0 Age-related osteoporosis without current pathological fracture; M46.90 Unspecified inflammatory spondylopathy, site unspecified; I73.9 Peripheral vascular disease, unspecified; H40.9 Unspecified glaucoma; R50.81 Fever presenting with conditions classified elsewhere; I25.10 Atherosclerotic heart disease of native coronary artery without angina pectoris; I25.2 Old myocardial infarction; Z95.5 Presence of coronary angioplasty implant and graft; Z98.51 Tubal ligation status; Z88.0 Allergy status to penicillin; Z82.49 Family history of ischemic heart disease and other diseases of the circulatory system; Z80.1 Family history of malignant neoplasm of trachea, bronchus and lung; Z98.42 Cataract extraction status, left eye; Z98.41 Cataract extraction status, right eye; Z80.3 Family history of malignant neoplasm of breast
CPT/HCPCS: 36415; 70553; 71010; 71260; 74177; 80048; 80053; 81003; 81015; 82550; 83605; 83735; 83880; 84484; 85025; 85049; 85060; 85610; 85730; 86140; 87040; 87070; 87077; 87086; 87186; 87205; 87502; 93005; 99233; A9270-GY; A9579; J0692; J1450; J2405; J2920; J2930; P9035; Q0164; Q9967